=== PATIENT | male | born 1955 | race African-American/Black ===

== ENCOUNTER 2017-10-18 19:05 | Emergency (ER) | payer MEDICARE, BC ==
[~2017-10-18 19:05] MED LIST: Iopamidol 370 76% 50 ML VIAL FS ONE
[2017-10-18 19:36] LABS: #Eosinphils 0.1 thou/uL (0.0-0.7); #Lymphocytes 1.8 thou/uL (1.20-3.40); #Monocytes 0.6 thou/uL (0.11-0.59); #Neutrophils 4.6 thou/uL (1.40-6.50); %Basophils 0.4 % (0.0-1.0); %Eosinophils 2.1 % (0.0-10.0); %Lymphocytes 25.1 % (21.0-51.0); %Monocytes 8.5 % (0.0-10.0); Hemoglobin 13.7 g/dL (14.0-18.0); Mean Corpuscular HGB CONC 33.5 g/dL (32.0-36.0); Mean Corpuscular Hemoglobin 32.6 pg (27.0-31.0); Mean Corpuscular Volume 97.2 fl (80.0-94.0); Mean Platelet Volume 8.3 fL (7.4-10.4); Platelet Count 122 thou/uL (130-400); RBC Distribution Width 14.8 % (11.5-14.5); Red Blood Cell (RBC) Count 4.21 mill/uL (4.70-6.10); White Blood Cell (WBC) Count 7.2 thou/uL (4.8-10.8)
[2017-10-18] MEDS ORDERED: Dicyclomine 20 MG TAB ONE (19:44)
[2017-10-18] MEDS ORDERED: Ondansetron ODT 4 MG TAB ONE (19:44)
[2017-10-18 19:55] LABS: ALT (SGPT) 17 U/L (8-55); AST (SGOT) 19 U/L (5-34); Albumin 4.7 g/dL (3.4-4.8); Alkaline Phosphatase 139 U/L (40-150); Anion Gap 20 mmol/L (10-20); BUN (Urea Nitrogen) 34 mg/dL (8.4-25.7); Bilirubin, Total 0.8 mg/dL (0.2-1.2); Calc. Creatinine Clearance 0 mL/min (70-130); Calcium 9.9 mg/dL (7.8-10.44); Carbon Dioxide 30 mmol/L (23-31); Chloride 95 mmol/L (98-107); Estimated GFR-MDRD 10; Glucose 125 mg/dL (80-115); Lipase 95 U/L (8-78); Protein, Total 8.7 g/dL (5.8-8.1); Sodium 141 mmol/L (136-145)
[2017-10-18 19:58] LABS: CKMB 0.9 ng/mL (0-6.6); Troponin I 0.046 ng/mL (< 0.028)
[2017-10-18] MEDS ORDERED: Mag-Al 1200 mg/1200 mg/30 ML UDCUP ONE (20:05)
[2017-10-18] MEDS ORDERED: Lidocaine Viscous Sol 2% 15 ml UD Cup ONE (20:05)
[2017-10-18] MEDS ORDERED: HYDROcodone/Acetaminophen 5/325 mg Tablet ONE (21:05)
--- NOTE | 2017-10-18 22:35 | CT ---
CT OF THE ABDOMEN AND PELVIS WITHOUT IV CONTRAST: 10/18/17 Enteric contrast administered. COMPARISON: Prior CT of chest, abdomen and pelvis dated 09/19/12. FINDINGS: There is small left pleural effusion and left basilar atelectasis. There is a calcified granuloma in the right lower lobe. There is pacemaker leads in place. There are scattered calcifications. There is some reticulonodular opacities within the right lower lobe. Numerous hypodense lesions involving both kidneys consistent with polycystic kidney disease. Unopacif ied liver, spleen, pancreas and adrenal glands are unremarkable. No enlarged lymph nodes are evident. Severe vascular calcifications involving the abdominal and pelvic vasculature. There is some mild free fluid in the pelvis. Bladder is decompressed. There is a fluid containing lef t inguinal hernia measuring 4 cm. Unopacified large bowel appears normal. The appendix is normal in the right lower quadrant. The visualized partially opacified small bowel appears within normal limits. No definite acute osseous abnormality is evident. IMPRESSION: 1. No definite CT explanation for the patient's suprapubic abdominal pain. There is mild free fl uid in the pelvis as well as fluid filling the patient's previously seen fat containing left inguinal hernia. 2. Findings of polycystic kidney disease. 3. Small left pleural effusion with left basilar atelectasis. 4. Reticulonodularity of the right lower lobe can be seen with a bronchiolitis. 5. No additional acute abnormality seen. POS: [facility]
== END 2017-10-18 23:51 | disposition home or self-care (01) ==
LOC: ERS 19:05
DX: R10.32 Left lower quadrant pain (principal); R10.31 Right lower quadrant pain; I12.0 Hypertensive chronic kidney disease with stage 5 chronic kidney disease or end stage renal disease; N18.6 End stage renal disease; E78.00 Pure hypercholesterolemia, unspecified
CPT/HCPCS: 36415; 74176; 80053; 82150; 82553; 83690; 84484; 85025; 93005; Q0162

== ENCOUNTER 2018-01-09 17:35 | Emergency (ER) | payer MEDICARE ==
[2018-01-09 18:48] LABS: #Basophils 0.1 thou/uL (0.0-0.2); #Eosinphils 0.2 thou/uL (0.0-0.7); #Lymphocytes 1.4 thou/uL (1.20-3.40); #Monocytes 0.4 thou/uL (0.11-0.59); #Neutrophils 2.9 thou/uL (1.40-6.50); %Basophils 1.1 % (0.0-1.0); %Eosinophils 4.7 % (0.0-10.0); %Lymphocytes 28.6 % (21.0-51.0); %Monocytes 8.3 % (0.0-10.0); %Neutrophils 57.3 % (42.0-75.0); Hemoglobin 12.4 g/dL (14.0-18.0); Mean Corpuscular HGB CONC 32.8 g/dL (32.0-36.0); Mean Platelet Volume 8.4 fL (7.4-10.4); Platelet Count 110 thou/uL (130-400); RBC Distribution Width 15.1 % (11.5-14.5); Red Blood Cell (RBC) Count 3.77 mill/uL (4.70-6.10)
[2018-01-09 18:58] LABS: Lactic Acid 2.3 mmol/L (0.5-2.2)
[2018-01-09 19:03] LABS: ALT (SGPT) 15 U/L (8-55); AST (SGOT) 21 U/L (5-34); Albumin 4.3 g/dL (3.4-4.8); Alkaline Phosphatase 101 U/L (40-150); Anion Gap 25 mmol/L (10-20); BUN (Urea Nitrogen) 51 mg/dL (8.4-25.7); Bilirubin, Total 0.6 mg/dL (0.2-1.2); Calc. Creatinine Clearance 0 mL/min (70-130); Calcium 9.6 mg/dL (7.8-10.44); Carbon Dioxide 22 mmol/L (23-31); Chloride 96 mmol/L (98-107); Estimated GFR-MDRD 7; Globulin 3.7 g/dL (2.4-3.5); Glucose 118 mg/dL (80-115); Lipase 77 U/L (8-78); Sodium 138 mmol/L (136-145)
[2018-01-09] MEDS ORDERED: Morphine 10 MG/ML VIAL ONE (21:07)
[2018-01-09] MEDS ORDERED: Morphine 4 MG/ML VIAL ONE (21:08)
[2018-01-09] MEDS ORDERED: Ondansetron ODT 4 MG TAB ONE (21:10)
--- NOTE | 2018-01-09 21:14 | CT ---
CT ABDOMEN AND PELVIS WITHOUT CONTRAST: 01/09/18 HISTORY: Abdominal pain, suprapubic pain. FINDINGS: Comparison made with exam of 10/18/17. A small left pleural effusion is again seen. Absence of oral and IV contrast reduces the sensitivity of the exam particularly for evaluation of solid organs and bowel. No calcified gallstones are noted. Changes of bilateral polycystic kidney disease are again seen. No hydroureteronephrosis is noted on either side. A small amount of free fluid is seen in the pelvis. No free air is seen. Amount of free fluid in the pelvis is smaller than on the previous study. There are vascular calcifications without evidence of aneurysmal dilatation of the abdominal aorta. A fat containing left inguinal hernia is p resent. Fluid within the fat noted on the previous study has significantly improved. There are degene rative changes in the spine. IMPRESSION: 1. Small left pleural effusion. 2. Polycystic kidney disease. 3. Small amount of free fluid in the pelvis. POS: [facility]
== END 2018-01-09 21:24 | disposition home or self-care (01) ==
LOC: ERS 17:35
DX: K40.90 Unilateral inguinal hernia, without obstruction or gangrene, not specified as recurrent (principal); E78.00 Pure hypercholesterolemia, unspecified; I12.0 Hypertensive chronic kidney disease with stage 5 chronic kidney disease or end stage renal disease; N18.5 Chronic kidney disease, stage 5
CPT/HCPCS: 36415; 74176; 80053; 83605; 83690; 85025; J2270; Q0162

== ENCOUNTER 2018-02-04 11:07 | Day surgery (SDC) | payer MEDICARE, OTHER ==
[2018-02-03 10:39] VITALS: BMI 26.7
--- NOTE | 2018-02-04 07:42 | HP ---
HISTORY OF PRESENT ILLNESS: Luciano Valencia is a 62-year-old black male who dialyzes Saturday, , and Saturday. Follow up today after right inguinal hernia repair, open performed 02/01/2017. The p atient has a compromised cardiac ejection fraction. He has had a left vgggt-ghz-dbvu amputation perf ormed Dr. Vincenzo Emmanuel. He has a left upper arm basilic vein transposition fistula which has served him well for dialysis for years. The patient is followed by chronic pain management for chronic eva n in his left leg. The patient reports today and his right inguinal hernia repair is intact. He com plains of bulge in his left groin which was not appreciated preoperatively. Evaluation in the office appreciates a left inguinal hernia. Plan is to repair that as an open fashion under anesthesia. Ri sk and benefits explained and he consents. I have talked with Cardiology regarding his cardiac risk and no further interventions are required. Although he is slight increased risk. Last anesthetic pr ovided was a general with local anesthetic. HISTORY: Please see recent history and physical dictated 01/31/2017. PHYSICAL EXAMINATION: VITAL SIGNS: Blood pressure 92/53, 84, 98.2 degrees, 180 pounds, 71 inches. HEENT: Unremarkable. LUNGS: Clear to auscultation. CARDIAC: Regular rate and rhythm without murmur or gallop. ABDOMEN: Soft, nontender. Right groin without hernia. : Testicles normal. Right inguinal hernia repair intact standing during Valsalva. Left inguinal hernia present, increased on Valsalva. ASSESSMENT AND PLAN: 1. Left inguinal hernia, symptomatic. Plan repair opened using mesh. He understands risks and bene fits and consents. We will plan this on a nondialysis day Saturday afternoon. 2. End-stage renal disease, on maintenance dialysis 0500 to 0900 Saturday, Saturday, and Saturday. 3. Coronary artery disease, stable with cardiomyopathy.
[2018-02-04] MEDS ORDERED: CEFAZOLIN/Water 2 GM/20 ML SYRINGE ONE (11:41)
[2018-02-04] MEDS ORDERED: Fentanyl 100 MCG/2 ML VIAL ONE ×2 (12:01)
[2018-02-04 12:09] LABS: #Eosinphils 0.2 thou/uL (0.0-0.7); #Lymphocytes 1.7 thou/uL (1.20-3.40); #Monocytes 0.6 thou/uL (0.11-0.59); #Neutrophils 2.1 thou/uL (1.40-6.50); %Eosinophils 4.2 % (0.0-10.0); %Lymphocytes 36.9 % (21.0-51.0); %Monocytes 13.1 % (0.0-10.0); %Neutrophils 44.8 % (42.0-75.0); Hemoglobin 12.3 g/dL (14.0-18.0); Mean Corpuscular HGB CONC 32.9 g/dL (32.0-36.0); Mean Corpuscular Hemoglobin 32.1 pg (27.0-31.0); Mean Corpuscular Volume 97.6 fL (78.0-98.0); Mean Platelet Volume 7.8 fL (7.4-10.4); Platelet Count 139 thou/uL (130-400); RBC Distribution Width 14.4 % (11.5-14.5); Red Blood Cell (RBC) Count 3.84 mill/uL (4.70-6.10); White Blood Cell (WBC) Count 4.6 thou/uL (4.8-10.8)
[2018-02-04 12:32] LABS: Anion Gap 21 mmol/L (10-20); BUN (Urea Nitrogen) 56 mg/dL (8.4-25.7); Calc. Creatinine Clearance 10 mL/min (70-130); Calcium 9.3 mg/dL (7.8-10.44); Carbon Dioxide 28 mmol/L (23-31); Chloride 95 mmol/L (98-107); Estimated GFR-MDRD 7; Glucose 88 mg/dL (80-115); Sodium 139 mmol/L (136-145)
[2018-02-04] MEDS ORDERED: Bupivacaine HCl 0.5%/Epinephrine 1:200,000/PF 30 ml Vial ONE (12:57)
[2018-02-04] MEDS ORDERED: Lidocaine 2% 10 ML INJ ONE (12:57)
--- NOTE | 2018-02-04 17:45 | OP ---
DATE OF PROCEDURE: 02/04/2018 PREOPERATIVE DIAGNOSES: Left inguinal hernia, end-stage renal disease, cardiomyopathy. POSTOPERATIVE DIAGNOSES: Left inguinal hernia, end-stage renal disease, cardiomyopathy. PROCEDURE: PHS mesh repair of indirect left inguinal hernia. SURGEON: Serge Anderson M.D. ANESTHESIA: General LMA. Local 0.5% Marcaine with epinephrine, 30 mL, mixed with 2% Xylocaine, 10 m L total volume mixture used. DESCRIPTION OF PROCEDURE: The patient was taken to the operating room where under general LMA anesth esia, left lower abdomen and groin prepared with ChloraPrep, draped in routine fashion. Local anesth etic infiltrated into skin and subcutaneous tissue for ilioinguinal nerve block along the line of inc ision. Ioban was used for the drape. Incision carried down through skin and subcutaneous tissue, th e external oblique, incised it in the direction of its fibers to the external ring. Cord structures dissected free and surrounded with a Latham drain. Cremasteric fibers taken down with the cautery a nd indirect hernia sac identified, opened under direct visualization, dissected free and then highly ligated under direct visualization with pursestring suture of 0 Nurolon. The stump of the hernia sac , underlay portion of the PHS mesh secured after excision of hernia sac. PHS mesh underlay portion p laced in the preperitoneal space, onlay portion placed in the floor of the canal as the mesh slit in the mesh made laterally and brought around the cord structures creating a synthetic internal ring res ecuring the mesh laterally to ligament and the mesh inferiorly to ligament. Hemostasis w as noted. Sponge and needle counts were correct. Good hemostasis ensured. The external oblique mary carmen sed with continuous suture of 3-0 Monocryl, Camper's fascia with continuous suture of 3-0 Monocryl, s kin with subcutaneous subcuticular suture of 4-0 Monocryl. Local anesthetic infiltrated in the space of the inguinal canal and space level Camper's fashion and the skin and subcutaneous tissue. Dermab ond applied.
--- NOTE | 2018-02-06 16:44 | EKG ---
Test Reason : PREOP Blood Pressure : / mmHG Vent. Rate : 062 BPM Atrial Rate : 062 BPM P-R Int : 170 ms QRS Dur : 118 ms QT Int : 482 ms P-R-T Axes : 057 006 245 degrees QTc Int : 489 ms AV sequential or dual chamber electronic pacemaker When compared with ECG of 18-OCT-2017 19:14, Vent. rate has decreased BY 19 BPM Confirmed by ANDIE CAM ([id number]) on 02/06/2018 4:43:45 PM Referred By: AFUA Confirmed By:ANDIE CAM
== END 2018-02-04 16:49 | disposition home or self-care (01) ==
LOC: SDC 11:07
PROVIDERS: ATTEND Specialist
PROC: 0YU60JZ Supplement Left Inguinal Region with Synthetic Substitute, Open Approach (ICD-10-PCS; principal; 2018-02-04)
DX: K40.90 Unilateral inguinal hernia, without obstruction or gangrene, not specified as recurrent (principal); I13.2 Hypertensive heart and chronic kidney disease with heart failure and with stage 5 chronic kidney disease, or end stage renal disease; N18.6 End stage renal disease; I50.9 Heart failure, unspecified; I25.10 Atherosclerotic heart disease of native coronary artery without angina pectoris; K21.9 Gastro-esophageal reflux disease without esophagitis; I42.9 Cardiomyopathy, unspecified; Z79.82 Long term (current) use of aspirin; Z79.899 Other long term (current) drug therapy; Z87.19 Personal history of other diseases of the digestive system
CPT/HCPCS: 49505; 80048; 85025; 93005; C1781; 36415; 93010; J0131; J0670; J3010

== ENCOUNTER 2018-03-24 10:37 | Outpatient (CLI) | payer MEDICARE, OTHER ==
[~2018-03-24 10:37] MED LIST changes: +Iopamidol 370 76% 100 ML VIAL ONE; -Iopamidol 370 76% 50 ML VIAL FS ONE
--- NOTE | 2018-03-24 13:42 | CT ---
CT ABDOMEN ANAD PELVIS WITH AND WITHOUT CONTRAST: Date: 03/24/18 HISTORY: R31.0 hematuria. COMPARISON: CT dated 01/09/18. FINDINGS: There is a chronic small left layering pleural effusion. There is some round atelectasis in the lung bases with some peripheral pleural scarring. There are peripheral calcifications of the right lower l obe parenchymal septa. Small pericardial effusion. There is reflux of contrast in the suprahepatic IVC and hepatic veins. Th ere is polycystic kidney disease. On the delayed phase of contrast, there is no significant contrast within the collecting systems nor the urinary bladder. Extensive atherosclerotic plaque of the aortoiliac system. Bilateral femoral art erial grafts are appreciated. The infrarenal abdominal aorta measures up to 2.8 cm. New from the comparison examination is extensive inflammatory stranding along the anterior lower pelv ic wall. There is inflammation along the left spermatic cord. There are enlarging superficial inguina l lymph nodes. There is loss of normal cortical medullary differentiation throughout the skeleton sug gesting hyperparathyroidism. Large erosion of L5-S1 disc space. There is a posterior calcified disc o steophyte complex at L5-S1 causing narrowing of the spinal canal and neural foramina. No definite renal enhancing mass is appreciated. IMPRESSION: 1. Limited evaluation for a urothelial abnormality due to lack of contrast within the renal collecti ng systems, ureters, nor the urinary bladder likely sequelae of the patient's poor kidney function. 2. Mild cardiomegaly with evidence of right hear failure with reflux of contrast in the suprahepatic IVC and hepatic veins. 3. Mild ectasia infrarenal abdominal aorta, although not aneurysmal. 4. Evidence of hyperparathyroidism throughout the skeleton. 5. New from the comparison examination is enlarging bilateral superficial inguinal lymph nodes with skin thickening of the anterior lower pelvis with inflammatory change, as well as inflammation of the left spermatic cord. Recommend correlation of underlying infectious abnormality. POS: [facility]
== END 2018-03-24 10:38 | disposition home or self-care (01) ==
LOC: CT 10:37
PROVIDERS: ATTEND Urology
DX: R31.0 Gross hematuria (principal); I50.9 Heart failure, unspecified; I51.7 Cardiomegaly; I77.811 Abdominal aortic ectasia; E21.3 Hyperparathyroidism, unspecified; N49.1 Inflammatory disorders of spermatic cord, tunica vaginalis and vas deferens
CPT/HCPCS: 74178; 80048; 85027; 85610; 85730; 93005; 93010

== ENCOUNTER 2018-03-24 11:30 | Outpatient (CLI) | payer MEDICARE, OTHER ==
[2018-03-24 12:17] LABS: Hemoglobin 10.8 g/dL (14.0-18.0); Mean Corpuscular HGB CONC 31.8 g/dL (32.0-36.0); Mean Corpuscular Hemoglobin 31.6 pg (27.0-31.0); Mean Corpuscular Volume 99.6 fL (78.0-98.0); Mean Platelet Volume 7.1 fL (7.4-10.4); Platelet Count 258 thou/uL (130-400); Red Blood Cell (RBC) Count 3.41 mill/uL (4.70-6.10)
[2018-03-24 12:22] LABS: PTT 32.5 SEC (22.9-36.1); Prothrombin Time 13.7 SEC (12.0-14.7)
[2018-03-24 12:29] LABS: Anion Gap 22 mmol/L (10-20); BUN (Urea Nitrogen) 72 mg/dL (8.4-25.7); Calc. Creatinine Clearance 0 mL/min (70-130); Calcium 9.1 mg/dL (7.8-10.44); Carbon Dioxide 25 mmol/L (23-31); Chloride 97 mmol/L (98-107); Estimated GFR-MDRD 5; Glucose 84 mg/dL (80-115); Potassium 5.3 mmol/L (3.5-5.1); Sodium 139 mmol/L (136-145)
--- NOTE | 2018-03-25 09:38 | EKG ---
Test Reason : Blood Pressure : / mmHG Vent. Rate : 067 BPM Atrial Rate : 067 BPM P-R Int : 144 ms QRS Dur : 142 ms QT Int : 492 ms P-R-T Axes : 071 016 263 degrees QTc Int : 519 ms Electronic ventricular pacemaker When compared with ECG of 04-FEB-2018 11:58, Vent. rate has increased BY 5 BPM Confirmed by MARSHALL THOMPSON ([id number]) on 03/25/2018 9:38:27 AM Referred By: NAYAN Confirmed By:MARSHALL THOMPSON
== END 2018-03-24 11:31 | disposition home or self-care (01) ==
LOC: LABBT 11:30
PROVIDERS: ATTEND Urology
DX: Z01.818 Encounter for other preprocedural examination (principal); R31.0 Gross hematuria; N32.89 Other specified disorders of bladder
CPT/HCPCS: 80048; 85027; 85610; 85730; 93005; 93010

== ENCOUNTER 2018-04-01 10:51 | Day surgery (SDC) | payer MEDICARE, OTHER ==
[2018-03-24 12:04] VITALS: BMI 26.0
[2018-04-01] MEDS ORDERED: PHENYLEPHRINE-NS 100 MCG/ML 10 ML SYRINGE ONE (12:47)
[2018-04-01] MEDS ORDERED: Ondansetron PF 4 MG/2 ML Vial ONE (12:47)
[2018-04-01] MEDS ORDERED: PROPOFOL 200 MG/20 ML VIAL ONE (12:47)
[2018-04-01] MEDS ORDERED: cefTRIAXone\\ROCEPHIN 1 GM VIAL ONE (13:16)
[2018-04-01] MEDS ORDERED: Sodium Chloride 0.9% 100 ML ONE (13:16)
--- NOTE | 2018-04-01 13:24 | RAD ---
PORTABLE CHEST: Date: 04-01-18 Indication: Cardiac disease. FINDINGS/IMPRESSION: Heart is mildly enlarged with mild vascular engorgement. AICD leads are noted. No infiltrate, effusio n, or acute process apparent. POS: [facility]
[2018-04-01] MEDS ORDERED: Fentanyl 100 MCG/2 ML VIAL ONE (14:15)
--- NOTE | 2018-04-01 15:11 | OP ---
DATE OF SURGERY: 04/01/2018 SERVICE: Urology. SURGEON: Eriberto Marquez M.D. PREOPERATIVE DIAGNOSIS: Gross hematuria with bladder lesions. POSTOPERATIVE DIAGNOSIS: Gross hematuria with bladder lesion. PROCEDURE PERFORMED: Cystoscopy with bladder biopsy. INDICATIONS FOR PROCEDURE: Mr. Valencia is a 62-year-old black male who initially presented to me with gross hematuria. He has end-stage renal disease and is oliguric, but when he does urinate, he says occasionally, there is blood in the urine. Office cystoscopy demonstrated lesions within the bladder and out of concern for this, I recommended we go ahead and perform biopsy of his bladder. Risks and benefits of the procedure were discussed and he has agreed to proceed forward. 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 Therefore, we have elected to go forward with a cystoscopy, bladder biopsies, while him t aking his aspirin and Plavix. Risks and benefits have been discussed and he agrees to proceed forwar d. DESCRIPTION OF PROCEDURE: After identification of armband and verification of consent, the patient w as brought back to the operating room where he underwent total intravenous anesthesia. He was placed in dorsal lithotomy position and prepped and draped in usual sterile fashion. After appropriate nima eout, a lubricated 22-Romansh rigid cystoscope was introduced per urethra into the bladder. The red p atches were again noted within the bladder which had previously been seen on cystoscopy with the wors t patch being on the left lateral bladder wall and the secondary worst patch being on the posterior b ladder wall. Both of these areas were biopsied. Due to the patient taking blood thinners, I did not want to take additional biopsies as I felt these two were sufficient and enrollment eligibility representative of the remai cinthia smaller bladder lesions and due to the patient being on Plavix which cannot be stopped, I felt t hat the fewer number of biopsies taken . After these 2 areas had cold cup biopsies, a Bugbee el ectrode was used to cauterize the area of the biopsy. This area was watched for several minutes afte r biopsy and no additional bleeding was noted. Satisfied that the area had been adequately cauterize d, the cystoscope was used to drain the bladder and the cystoscope removed. The patient was awakened and taken to PACU for recovery in stable condition. COMPLICATIONS: None. ESTIMATED BLOOD LOSS: Minimal. RETAINED TUBES OR DRAINS: None. SPECIMENS: Bladder biopsies x2. RETAINED TUBES AND DRAINS: None. DISPOSITION: The patient will be discharged home and follow up with me in approximately 1-2 weeks fo r postop check.
== END 2018-04-02 15:00 | disposition home or self-care (01) ==
LOC: SDC 10:51
PROVIDERS: ATTEND Urology
PROC: 0TBB8ZX Excision of Bladder, Via Natural or Artificial Opening Endoscopic, Diagnostic (ICD-10-PCS; principal; 2018-04-01)
DX: N30.21 Other chronic cystitis with hematuria (principal); N32.89 Other specified disorders of bladder; I13.2 Hypertensive heart and chronic kidney disease with heart failure and with stage 5 chronic kidney disease, or end stage renal disease; N18.6 End stage renal disease; I50.9 Heart failure, unspecified; E78.00 Pure hypercholesterolemia, unspecified; M10.9 Gout, unspecified; G47.00 Insomnia, unspecified; K21.9 Gastro-esophageal reflux disease without esophagitis; I38 Endocarditis, valve unspecified; Z79.02 Long term (current) use of antithrombotics/antiplatelets; Z79.82 Long term (current) use of aspirin; Z79.899 Other long term (current) drug therapy
CPT/HCPCS: 52204; 71045; 88305; C1769; J0696; J2405; J2704; J3010; J7050

== ENCOUNTER 2019-10-15 13:57 | Outpatient (CLI) | payer MEDICARE, OTHER ==
[~2019-10-15 13:57] MED LIST changes: -Iopamidol 370 76% 100 ML VIAL ONE; +Iopamidol-370 76% 500 ML 1 ML ONE
--- NOTE | 2019-10-15 16:22 | CT ---
CT arteriogram abdomen and pelvis with IV contrast and 3-D imaging CT arteriogram runoff bilateral lower extremity with IV contrast and 3-D imaging HISTORY: Vascular disease. Right foot wound. Gangrene. Renal failure FINDINGS: There is prominent calcification throughout the arterial structures, including the partiall y visualized coronary arteries. Mesenteric arteries are patent. Likely high grade stenoses involving each renal artery. Mild fusiform ectasia of the lower abdominal aorta and left common iliac artery. Right iliac artery is patent. Prominent calcification at the distal external iliac and common femoral artery with approximately 70% stenosis at the level of the hip joint. Femoropopliteal pass graft is patent with occlusion of the [place] right femoral artery. A few deep femoral collaterals are opaci fied. The right popliteal artery, fed by the bypass graft, shows three-vessel runoff to the lower leg, although arterial calcification predominantly obscures the contrast. The left iliac artery is patent with areas of approximately 50% stenosis. At the level of the hip sandeep nt, prominent plaque results in approximately 80% stenosis. The left femoral artery is obstructed without flow. Collateralization into the deep femoral system is present, although the more peripheral arterial structures are not opacified due to the timing of contrast. Below the knee amputation is noted. Prominent calcification throughout the popliteal arteries and other arteries of the remaining lower leg. Kidneys are diffusely enlarged and completely replaced by cysts of varying size. No solid masses are apparent. There are prominent degenerative changes throughout the lumbar spine. Involving the anterior cortex of the upper right femoral shaft is a vertically oriented well-circumsc ribed lytic lesion measuring up to 4.7 cm length by 0.8 cm diameter. Small area of endosteal scalloping at the superior margin. Benign process is favored. IMPRESSION : Severe atherosclerosis. Right iliac artery and femoropopliteal bypass are patent. Approximately 70% s tenosis at the common femoral artery. Long segment occlusion of the arterial structures of the left leg with cvaqd-bag-vrvp amputation. Bilateral renal artery stenosis. Evidence of long-term renal atrophy/failure. Cortex replaced by belgica l cysts.
== END 2019-10-15 13:58 | disposition home or self-care (01) ==
LOC: BICCT 13:57
PROVIDERS: ATTEND Thoracic Surgery (Cardiothoracic Vascular Surgery)
DX: I70.262 Atherosclerosis of native arteries of extremities with gangrene, left leg (principal); I70.1 Atherosclerosis of renal artery; I70.0 Atherosclerosis of aorta; I25.10 Atherosclerotic heart disease of native coronary artery without angina pectoris; I70.201 Unspecified atherosclerosis of native arteries of extremities, right leg; N28.1 Cyst of kidney, acquired; Z89.512 Acquired absence of left leg below knee
CPT/HCPCS: 75635; Q9967

== ENCOUNTER 2019-10-22 09:49 | Outpatient (CLI) | payer MEDICARE, OTHER ==
[2019-10-22 18:35] LABS: SARS-CoV-2 MS2 Positive; SARS-CoV-2 N Gene Negative; SARS-CoV-2 S Gene Negative; SARS-CoV-2 orf1ab Negative
== END 2019-10-22 09:50 | disposition home or self-care (01) ==
LOC: LABBT 09:49
PROVIDERS: ATTEND Thoracic Surgery (Cardiothoracic Vascular Surgery)
DX: Z01.812 Encounter for preprocedural laboratory examination (principal); Z11.59 Encounter for screening for other viral diseases; I73.9 Peripheral vascular disease, unspecified
CPT/HCPCS: 87635; U0003

== ENCOUNTER 2019-10-26 05:42 | Day surgery (SDC) | payer MEDICARE, OTHER ==
[2019-10-22 10:32] VITALS: BMI 26.6
[2019-10-26] MEDS ORDERED: Heparin 10,000 UNITS/1 ML VIAL ONE (09:14)
[2019-10-26] MEDS ORDERED: Fentanyl 100 MCG/2 ML VIAL ONE (09:16)
[2019-10-26] MEDS ORDERED: Midazolam HCl 2 mg/2 ml Vial ONE (09:16)
[2019-10-26] MEDS ORDERED: Iopamidol 370 76% 50 ML VIAL FS ONE (09:16)
[2019-10-26] MEDS ORDERED: Protamine Sulfate 50 MG/5 ML VIAL ONE (10:03)
--- NOTE | 2019-10-26 12:19 | OP ---
DATE OF PROCEDURE: 10/26/2019 PREOPERATIVE DIAGNOSES: Peripheral vascular disease with rest pain/ulceration of the right foot. POSTOPERATIVE DIAGNOSES: Peripheral vascular disease with rest pain/ulceration of the right foot. PROCEDURES PERFORMED: 1. Left femoral artery ultrasound-guided arterial access. 2. Abdominal aortogram. 3. Right external iliac artery angiogram. 4. Right common femoral artery angiogram. 5. Right proximal femoral-popliteal graft [employer] with a 5 x 80 [place] balloon followed by 6 x 80 Lutonix balloon held at 10 mmHg for 3 minutes. TOTAL CONTRAST: 40 mL. TOTAL FLUORO TIME: 8.4 minutes. Heparin was 5000 units with 25 mg of protamine given at the completion. DESCRIPTION OF PROCEDURE: After consent was obtained, the patient was brought to the warehouse general laborer, placed in supine position on warehouse general laborer table. Appropriate monitoring was placed. The patient was given 1 mg Versed and 25 mcg fentanyl. Groins were prepped and draped in usual sterile fashion. Using ultrasound guidance, the left groin was anesthetized with 1% lidocaine. Percutaneous access to the common femoral artery was obtained with a micropuncture needle and wire. This was followed with a micropuncture sheath. A 5-[place] sheath was then exchanged for the micropuncture sheath. A Contra catheter was passed in the abdominal aorta. Hand-injected aortogram was performed showing no significant disease in the aorta or proximal common iliac or external iliac arteries bilaterally. A Contra catheter was guided down into the external iliac artery. Hand-injected arteriogram was performed, which showed at the takeoff of the femoral-popliteal graft, there was a stenosis. The patient was given 5000 units of heparin. A Magic Torque guidewire was passed down into the femoral-popliteal graft. A 5-Sudanese sheath was exchanged for a 5-Sudanese Destination sheath positioned with its tip at the common femoral artery. The area in question was magnified and hand-injected arteriogram performed. We selected a 5 x 80 [place] balloon, which was inflated with good waisting and resolution of the waist. The balloon was withdrawn. Followup angiogram showed a good result. We selected a 6 x 80 Lutonix balloon, which was inflated over the area in question for 3 minutes. Balloon was deflated and followup angiogram showed an excellent result. Digital angiography was used to yue contrast down for the full length of the graft. This was then plugged into the tibioperoneal trunk. This showed single-vessel runoff into the foot via a peroneal artery. The patient was given 25 mg of protamine. The sheath was withdrawn back over the aortic bifurcation over the guidewire. Sheath was removed and manual pressure held for hemostasis. The patient tolerated the procedure well and was transferred to recovery area in stable condition. Job ID: [id number]
== END 2019-10-26 15:20 | disposition home or self-care (01) ==
LOC: CCL 05:42
PROVIDERS: ATTEND Thoracic Surgery (Cardiothoracic Vascular Surgery)
PROC: 047K3ZZ Dilation of Right Femoral Artery, Percutaneous Approach (ICD-10-PCS; principal; 2019-10-26)
DX: I70.321 Atherosclerosis of unspecified type of bypass graft(s) of the extremities with rest pain, right leg (principal); I70.335 Atherosclerosis of unspecified type of bypass graft(s) of the right leg with ulceration of other part of foot; L97.519 Non-pressure chronic ulcer of other part of right foot with unspecified severity; I70.262 Atherosclerosis of native arteries of extremities with gangrene, left leg; I25.10 Atherosclerotic heart disease of native coronary artery without angina pectoris; I13.2 Hypertensive heart and chronic kidney disease with heart failure and with stage 5 chronic kidney disease, or end stage renal disease; N18.6 End stage renal disease; I50.1 Left ventricular failure, unspecified; E78.2 Mixed hyperlipidemia; E66.9 Obesity, unspecified; Z68.26 Body mass index [BMI] 26.0-26.9, adult; Z79.01 Long term (current) use of anticoagulants; Z79.82 Long term (current) use of aspirin; Z79.899 Other long term (current) drug therapy; Z89.512 Acquired absence of left leg below knee
CPT/HCPCS: 37224; 76942; 85347; 99152; 99153; C1725; C1769; C1887; J1644; J2250; J2720; J3010; Q9967

== ENCOUNTER 2019-11-22 19:07 | Inpatient (IN) | payer MEDICARE, OTHER ==
[2019-11-22 19:37] LABS: Hemoglobin 11.3 g/dL (14.0-18.0); Mean Corpuscular HGB CONC 31.5 g/dL (32.0-36.0); Mean Corpuscular Hemoglobin 29.8 pg (27.0-31.0); Mean Corpuscular Volume 94.6 fL (78.0-98.0); Mean Platelet Volume 8.6 fL (7.4-10.4); Platelet Count 229 thou/uL (130-400); RBC Distribution Width 15.1 % (11.5-14.5); Red Blood Cell (RBC) Count 3.78 mill/uL (4.70-6.10); White Blood Cell (WBC) Count 24.9 thou/uL (4.8-10.8)
[2019-11-22] MEDS ORDERED: Cefepime 2 GM VIAL ONE (19:40)
[2019-11-22] MEDS ORDERED: Sodium Chloride 0.9% 100 ML ONE (19:40)
[2019-11-22 19:42] LABS: Bilirubin Negative (Negative); Blood, Urine Large (Negative); Glucose, Urine (Dipstick) Negative (Negative); Leukocyte Small (Negative); Nitrite Negative (Negative); Protein, Urine (Dipstick) > or equal to 300 mg/dL (Neg-Trace); Urobilinogen 0.2 mg/dL (Less than 2)
[2019-11-22 19:45] LABS: Clarity Turbid (Clear)
[2019-11-22 19:47] LABS: Other Microscopic Description Less than 2 mL rec'd
[2019-11-22 19:48] LABS: Bacteria/HPF None Seen HPF (None Seen); Renal Epithelial 0-3 HPF (None Seen); Squamous Epithelial 0-3 HPF (0-3); Transitional Epithelial 0-3 HPF (None Seen)
[2019-11-22] MEDS ORDERED: Acetaminophen 650 MG Suppository ONE (19:49)
[2019-11-22 19:51] LABS: Anisocytosis SLIGHT = 6-15 cells (100X) (0-5/hpf); Band 5 % (5-11); Lymphocytes 2 % (21-51); MDiff Complete? YES; Monocytes 3 % (0-10); Neutrophil 89 % (42-75); Ovalocytes SLIGHT = 2-5 cells (100X) (0-1/hpf); Platelet Morphology Comment Appears Adequate; Polychromasia SLIGHT = 2-3 cells (100X) (0-2/hpf); Reactive Lymphocytes 1 % (0-10); Target Cells SLIGHT = 2-5 cells (100X) (0-1/hpf)
[2019-11-22 19:57] LABS: ALT (SGPT) 37 U/L (8-55); AST (SGOT) 104 U/L (5-34); Alkaline Phosphatase 104 U/L (40-110); Anion Gap 21 mmol/L (10-20); BUN (Urea Nitrogen) 65 mg/dL (8.4-25.7); Calc. Creatinine Clearance 0 mL/min (70-130); Calcium 11.2 mg/dL (7.8-10.44); Carbon Dioxide 27 mmol/L (23-31); Chloride 94 mmol/L (98-107); Estimated GFR-MDRD 5; Globulin 4.2 g/dL (2.4-3.5); Glucose 100 mg/dL (80-115); Potassium 4.8 mmol/L (3.5-5.1); Protein, Total 7.2 g/dL (5.8-8.1); Sodium 137 mmol/L (136-145)
--- NOTE | 2019-11-22 19:57 | RAD ---
Radiograph right foot 2 views: 11/22/2019 HISTORY: 64-year-old male with right foot wound infection FINDINGS: Absence of first distal phalanx. Diffuse osteopenia. Atherosclerosis. No high-grade DJD. No periostit is, permeative lesion, osteolytic lesion, osteoblastic lesion, or acute fracture identified. Diffuse soft tissue swelling. No subcutaneous emphysema identified. IMPRESSION: 1. 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 2. Atherosclerosis. 3. Soft tissue edema. 4. No destructive osseous lesion identified.
[2019-11-22] MEDS ORDERED: Vancomycin 1.5 GRAM/300 ML BAG 1.5 GM in Premix Bag 1 BAG IVPB SCH (20:00)
--- NOTE | 2019-11-22 20:13 | RAD ---
ONE VIEW CHEST: History: Fever, dialysis patient. Comparison: 11-18-14, 04-01-18 FINDINGS: Stable three lead right sided defibrillator. Normal cardiac silhouette. Pulmonary vessels and hilum are normal. Costophrenic angles are clear. No consolidation or mass. Stable vascular stents projecting over the medial left lung apex and left axilla. Stable internal fixation plate across the right clavicle. IMPRESSION: No acute cardiopulmonary process. POS: [facility]
[2019-11-22] MEDS ORDERED: Vancomycin HCl 1 GM in Sodium Chloride 0.9% 250 ML 300 ML IVPB SCH (21:15)
[2019-11-22] MEDS ORDERED: Acetaminophen 325 MG TAB PO PRN (21:19)
[2019-11-22] MEDS ORDERED: Acetaminophen 650 MG Suppository PR PRN (21:19)
[2019-11-22] MEDS ORDERED: HYDROcodone/Acetaminophen 5/325 mg Tablet PO PRN (21:19)
[2019-11-22] MEDS ORDERED: Vancomycin HCl 500 MG in Sodium Chloride 0.9% 100 ML IVPB SCH (21:30)
[2019-11-22] MEDS ORDERED: Vancomycin 1 GM in Premix Bag 1 BAG IVPB SCH (21:30)
[2019-11-22] MEDS ORDERED: Vancomycin HCl 750 MG in Sodium Chloride 0.9% 250 ML 250 ML IVPB SCH (21:30)
[2019-11-22] MEDS ORDERED: HOLD VANCOMYCIN FOR LEVEL >20 FS SCH (21:30)
[2019-11-22] MEDS ORDERED: Vancomycin HCl 1.25 GM in Sodium Chloride 0.9% 250 ML 250 ML IVPB SCH (21:30)
--- NOTE | 2019-11-22 21:32 | PDOC.HHP ---
Hospitalist HPI - History of Present Illness fever, altered menta state History of Present Illness: Case of an 64y/o male with pmhx of cad, pvd, esrd on h/d, chf s/p def htn, hyperlipidemia who comes to hospital due to fever and altered mental state. apparenly patient was on his usual state of health until today when they noted that patient was warm and was not oriented for which they brought the patient to hospital for evaluation. patient w recent stent placement on R leg, present with sepsis secondary to wet gangrene of the foot. most of the history was obtain from patient was not oriented during evaluation. Hospitalist ROS - Review of Systems ROS unobtainable: due to mental status Hospitalist History - Past Medical History Source: family Cardiac: reports: CAD, CHF, HTN, Hyperlipidemia Renal/: reports: Chronic renal failure - Past Surgical History Other Surgical History: bka - Family History Family History: reports: cancer - Social History Smoking Status: Former smoker Alcohol: reports: None Drugs: reports: none Living Situation: With Family Activity level: wheelchair bound - Exam General Appearance: NAD Eye: PERRL, anicteric sclera ENT: normocephalic atraumatic, no oropharyngeal lesions Neck: supple, symmetric, no JVD, no thyromegaly Heart: RRR, no murmur, no gallops Respiratory: CTAB, no wheezes, no rales Gastrointestinal: soft, non-tender, non-distended Skin: normal turgor, no lesions Neurological: cranial nerve grossly intact, normal sensation to touch Musculoskeletal: normal tone, normal strength Musculoskeletal - other findings: wet gangrene on foot Psychiatric: oriented to person Hospitalist Results - Labs Result Diagrams: 11/22/19 19:22 11/22/19 19:22 Lab results: WBC 24.9 thou/uL (4.8-10.8) H 11/22/19 19:22 Hgb 11.3 g/dL (14.0-18.0) L 11/22/19 19:22 Hct 35.8 % (42.0-52.0) L 11/22/19 19:22 MCV 94.6 fL (78.0-98.0) 11/22/19 19:22 Plt Count 229 thou/uL (130-400) 11/22/19 19:22 Band Neuts % (Manual) 5 % (5-11) 11/22/19 19:22 ESR Westergren Greater than 130 mm/hr (Less than 20) 11/22/19 19:22 Sodium 137 mmol/L (136-145) 11/22/19 19:22 Potassium 4.8 mmol/L (3.5-5.1) 11/22/19 19:22 Chloride 94 mmol/L (98-107) L 11/22/19 19:22 Carbon Dioxide 27 mmol/L (23-31) 11/22/19 19:22 BUN 65 mg/dL (8.4-25.7) H 11/22/19 19:22 Creatinine 11.43 mg/dL (0.7-1.3) H 11/22/19 19:22 Glucose 100 mg/dL (80-115) 11/22/19 19:22 Lactic Acid 1.2 mmol/L (0.5-2.2) 11/22/19 19: Calcium 11.2 mg/dL (7.8-10.44) H 11/22/19 19:22 Total Bilirubin 1.0 mg/dL (0.2-1.2) 11/22/19 19:22 AST 104 U/L (5-34) H 11/22/19 19:22 ALT 37 U/L (8-55) 11/22/19 19:22 Alkaline Phosphatase 104 U/L (40-110) 11/22/19 19:22 Serum Total Protein 7.2 g/dL (5.8-8.1) 11/22/19 19:22 Albumin 3.0 g/dL (3.4-4.8) L 11/22/19 19:22 Urine Ketones Negative mg/dL (Negative) 11/22/19 19:32 Urine Blood Large (Negative) A 11/22/19 19:32 Urine Nitrite Negative (Negative) 11/22/19 19:32 Ur Leukocyte Esterase Small (Negative) H 11/22/19 19:32 Urine RBC 7-10 HPF (0-3) A 11/22/19 19:32 Urine WBC 4-6 HPF (0-3) A 11/22/19 19:32 Ur Squamous Epith Cells 0-3 HPF (0-3) 11/22/19 19:32 Urine Bacteria None Seen HPF (None Seen) 11/22/19 19:32 - Radiology Interpretation Chest x-ray Additional Comment: no acute pathology Other Additional Comment: no OM on leg xr Hospitalist H&P A/P - Problem (1) Cellulitis Code(s): L03.90 - CELLULITIS, UNSPECIFIED Status: Acute (2) Sepsis Code(s): A41.9 - SEPSIS, UNSPECIFIED ORGANISM Status: Acute (3) ESRD (end stage renal disease) Code(s): N18.6 - END STAGE RENAL DISEASE Status: Acute (4) Atherosclerosis of [place] arteries of extremity with rest pain Code(s): I70.229 - ATHSCL [place] ARTERIES OF EXTRM W REST PAIN, UNSP EXTREMITY Status: Acute (5) Dyslipidemia Code(s): E78.5 - HYPERLIPIDEMIA, UNSPECIFIED Status: Acute (6) Hypertension Code(s): I10 - ESSENTIAL (PRIMARY) HYPERTENSION Status: Acute - Plan Plan: - sepsis bundles started, lactic acid 1.2 given 1l of NS, pt is esrd, blood cultures were taken and abx started - vanc + cefepime - f/u cultures - continue h/d treatment, nephrology was consulted - recent stent placement by dr zimmer cardiology, will be consulted - surgery evaluation - continue home meds for chronic conditions
[2019-11-23 01:47] VITALS: BMI 27.0
[2019-11-23 05:56] LABS: ALT (SGPT) 31 U/L (8-55); AST (SGOT) 84 U/L (5-34); Albumin 2.8 g/dL (3.4-4.8); Alkaline Phosphatase 107 U/L (40-110); Anion Gap 22 mmol/L (10-20); BUN (Urea Nitrogen) 76 mg/dL (8.4-25.7); Bilirubin, Total 1.1 mg/dL (0.2-1.2); Calc. Creatinine Clearance 7 mL/min (70-130); Calcium 10.7 mg/dL (7.8-10.44); Carbon Dioxide 22 mmol/L (23-31); Chloride 98 mmol/L (98-107); Estimated GFR-MDRD 5; Globulin 3.7 g/dL (2.4-3.5); Glucose 86 mg/dL (80-115); Protein, Total 6.5 g/dL (5.8-8.1); Sodium 137 mmol/L (136-145)
[2019-11-23 06:03] LABS: Band 15 % (5-11); Hemoglobin 10.5 g/dL (14.0-18.0); Lymphocytes 5 % (21-51); MDiff Complete? YES; Mean Corpuscular HGB CONC 30.6 g/dL (32.0-36.0); Mean Corpuscular Hemoglobin 29.2 pg (27.0-31.0); Mean Corpuscular Volume 95.3 fL (78.0-98.0); Mean Platelet Volume 8.3 fL (7.4-10.4); Monocytes 7 % (0-10); Neutrophil 73 % (42-75); Platelet Count 209 thou/uL (130-400); Platelet Morphology Comment Appears Adequate; RBC Distribution Width 15.2 % (11.5-14.5); Red Blood Cell (RBC) Count 3.61 mill/uL (4.70-6.10); White Blood Cell (WBC) Count 24.1 thou/uL (4.8-10.8)
[2019-11-23 08:08] LABS: Vancomycin, Random 24.1 ug/mL (See Comment)
--- NOTE | 2019-11-23 08:41 | PDOC.HOSPP ---
- Subjective Encounter Date: 11/23/19 Encounter Time: 10:40 Subjective: Patient remains confused, but in no distress. Was febrile and tachycardic earlier, improving with Tylenol. Denies complaints. - Objective Vital Signs & Weight: Vital Signs (12 hours) Temp Pulse Resp BP Pulse Ox 11/23/19 08:33 102.2 F H 102 H 24 H 104/61 93 L 11/23/19 04:20 99.3 F 88 18 116/68 93 L 11/23/19 00:19 98.2 F 88 18 111/66 93 L 11/22/19 22:35 98.8 F 88 20 135/60 97 Weight Weight 188 lb 6.4 oz Result Diagrams: 11/23/19 05:09 11/23/19 05:09 Hospitalist ROS - Review of Systems ROS unobtainable: due to mental status - Medication Medications: Active Medications Generic Name Dose Route Start Last Admin Trade Name Freq PRN Reason Stop Dose Admin Acetaminophen 650 mg 11/22/19 21:19 11/23/19 06:17 Tylenol OK 650 mg Q4H PRN Administration Headache/Fever/Mild Pain (1-3) - Exam General - other findings: no respiratory distress currently, shivering a bit on and off ENT: moist mucosa Heart: RRR, no murmur, no gallops, no rubs Respiratory: CTAB, no wheezes, no rales, no ronchi Gastrointestinal: soft, non-tender, non-distended, normal bowel sounds Musculoskeletal - other findings: left amputation, right foot with dressing in place Psychiatric: lethargic Psychiatric - other findings: arousable, follows very basic commands, can't answer orientation questions Hosp A/P (1) Sepsis Code(s): A41.9 - SEPSIS, UNSPECIFIED ORGANISM Status: Acute (2) Cellulitis Code(s): L03.90 - CELLULITIS, UNSPECIFIED Status: Acute Qualifiers: Site of cellulitis: extremity Site of cellulitis of extremity: lower extremity (3) Gangrene Status: Acute - Plan Patient on Vancomycin and Cefepime Spiking high fevers this morning even after Tylenol Blood cultures pending Nephrology consulted for dialysis Surgery consulted for infected foot with PVD and recent stent
[2019-11-23] MEDS ORDERED: Apixaban 2.5 MG TAB PO SCH (09:00)
[2019-11-23] MEDS ORDERED: Apixaban 5 MG TAB PO SCH (09:00)
--- NOTE | 2019-11-23 10:14 | CON ---
DATE OF CONSULTATION: HISTORY OF PRESENT ILLNESS: Mr. Valencia is a 64-year-old black gentleman with ESRD - on maintenance hemodialysis, was admitted for mental status change. This was associated with fever. He was found to have right foot infection/gangrene. Recently, the patient has stent placement on the right leg with Dr. Vincenzo Emmanuel. We are now being consulted for management of his ESRD as well as maintenance hemodialysis. REVIEW OF SYSTEMS: Currently, positive for fever. Positive for confusion. Positive for right foot pain. No nausea. No vomiting. Decreased appetite. Decreased energy level. No headache. No diplopia. No syncopal episode. No dysuria. No urinary frequency. No productive cough. No abdominal pain. MEDICATIONS: Currently on; 1. Acetaminophen 650 mg q.4. 2. Cordarone 200 mg daily. 3. Apixaban 5 mg p.o. b.i.d. 4. Aspirin 81 mg q.a.m. 5. Atorvastatin 40 mg tablet at bedtime. 6. Cefepime 0.5 mg IV daily. 7. Cymbalta 30 mg daily. 8. Hydrocodone one to two tabs q.4 p.r.n. 9. Sevelamer 800 mg 3 tabs t.i.d. with meals. 10. Status post vancomycin - on sliding scale. PAST MEDICAL HISTORY: 1. ESRD, on maintenance hemodialysis from longstanding hypertension. 2. Longstanding hypertension, ischemic cardiomyopathy. 3. Status post CHF. 4. Coronary artery disease. 5. Hyperlipidemia. 6. Chronic low back pain. 7. Peripheral vascular disease. PAST SURGICAL HISTORY: Status post AV fistula placement, status post cuffed dialysis catheter placement, status post back surgery, status post cardiac cath, status post stent placement of the right lower extremity, status post AICD placement, and history of status post left BKA. 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 He lives in [place]. He has 7 children, smoked for 14 years, 2 packs a day. No alcohol. No IV drug abuse. Status post blood transfusion. Education, high school. The patient is . ALLERGIES: NONE. TRAUMA: None. IMMUNIZATIONS: Up-to-date. HOSPITALIZATIONS: Please see past medical history. FAMILY HISTORY: No family history of ESRD. PHYSICAL EXAMINATION: VITAL SIGNS: Blood pressure is noted at 104/61, heart rate 102, temperature 101.9, respiratory rate 24, and O2 saturation 93%. GENERAL: The patient is awake, alert, comfortable, not in distress. SKIN: Adequate turgor. HEENT: He has pinkish conjunctivae. Anicteric sclerae. NECK: No neck mass. No carotid bruits. No JVD. CHEST: No deformities. LUNGS: Clear breath sounds. No wheezing. No crackles. HEART: Normal sinus rhythm. No murmur. No gallops. No rubs. ABDOMEN: Globular, soft, and nontender. No masses. EXTREMITIES: No edema. The patient is status post left BKA. He has a right foot dressing - positive for right foot gangrene. NEUROLOGIC: The patient is disoriented, not in cardiorespiratory distress. Moving all extremities. LABORATORY DATA: Laboratories of November 23, 2019; white count 24.1, hemoglobin 10.5. Sodium 137, potassium 5, chloride 98, carbon dioxide 22, BUN 76, creatinine 11.91, calcium 10.7, AST 84, ALT 31, and albumin 2.8. ASSESSMENT AND PLAN: 1. Right foot gangrene/peripheral vascular disease - IV antibiotics. Currently, on vancomycin. Surgical consult has been done with Dr. Vincenzo Emmanuel. 2. End-stage renal disease, stable. We will continue current Saturday, Saturday, and Saturday hemodialysis regimen. Fluid removal only as tolerated by the patient. 3. Peripheral vascular disease with status post stent placement. Adjust Eliquis to 2.5 mg tablet b.i.d. for renal dosing. Overall, prognosis remains guarded. Job ID: [id number]
[2019-11-23] MEDS: Amiodarone 200 MG TAB PO SCH (10:26)
[2019-11-23] MEDS: Aspirin Chewable 81 MG TAB PO SCH (10:27)
[2019-11-23] MEDS: DULoxetine 30 MG CAP PO SCH (10:27)
[2019-11-23] MEDS ORDERED: PHENYLEPHRINE-NS 100 MCG/ML 10 ML SYRINGE ONE ×2 (10:44→14:08)
[2019-11-23] MEDS ORDERED: Ondansetron PF 4 MG/2 ML Vial ONE (10:44)
[2019-11-23] MEDS ORDERED: Lidocaine 1% PF 5 ML VIAL ONE (10:44)
[2019-11-23] MEDS ORDERED: Succinylcholine Chloride 20 MG/ML 10 ml SYRINGE FS ONE (10:44)
[2019-11-23] MEDS ORDERED: Dexamethasone 20 MG/5 ML VIAL ONE (10:44)
[2019-11-23] MEDS ORDERED: HUM PROTHROMBIN CPLX IV SCH (11:45)
[2019-11-23] MEDS ORDERED: [UNRECOGNIZED DRUG - OTHER] IV SCH (11:45)
[2019-11-23] MEDS ORDERED: ADMIXTURE FEE IV SCH (11:45)
[2019-11-23] MEDS: Sevelamer Carbonate 800 MG TAB PO SCH ×2 (12:02→20:48)
--- NOTE | 2019-11-23 13:20 | CON ---
DATE OF CONSULTATION: HISTORY OF PRESENT ILLNESS: Luciano Valencia is a 64-year-old black male who has end-stage renal disease, on dialysis, using a left arm basilic vein transposition fistula, that was established in 2004. He has had multiple operations regarding dialysis access. In 2005, he had a graft placed because of repeated thrombosis. In 12/2005, he had a temporary dialysis catheter placed. He has exhausted ewiiaapaayp vein fistulas in both arms. In 06/2014, Dr. Vincenzo Emmanuel aborted a femoral peroneal in situ vein bypass due to lack of vein. He underwent a left rcqbp-vnr-hesl amputation in 11/2014. On 02/01/2017, I performed a mesh repair of a right inguinal hernia. On 02/04/2017, I repaired his left inguinal hernia with mesh open. On 04/01/2018, Dr. Marquez had performed a cystoscopy and bladder biopsy and Dr. Vincenzo Emmanuel on 10/26/2019 performed an arteriogram to evaluate his right leg due to gangrene. He did a right proximal femoral-popliteal artery graft. The patient has developed gangrene of his right foot. He has fevers to 101 degrees to 102 degrees. Blood culture has been negative to date. Foot x-ray this hospitalization of right foot reveals arterial sclerosis and edema. Chest x-ray reveals no acute pulmonary disease. The patient has a history of cardiomyopathy. He is followed by Dr. Mae for his dialysis. He has a history of induced ventricular tachycardia and Single-chamber ICD, has a cardiac ejection fraction of 15% and 20% and has been followed by Dr. Reza in the past. He has been evaluated and felt not to be a candidate for cardiac bypass surgery. ALLERGIES: NONE. SOCIAL HISTORY: Tobacco unknown as the patient is confused. The patient is noted to be a former smoker. FAMILY HISTORY: Unknown due to his confusion. PAST MEDICAL HISTORY: 1. Coronary artery disease. 2. Congestive heart failure. 3. Hypertension. 4. Hyperlipidemia. 5. End-stage renal disease, on maintenance dialysis. PAST SURGICAL HISTORY: As listed above. PHYSICAL EXAMINATION: GENERAL: The patient is communicative with intelligible words, but is confused. VITAL SIGNS: Temperature 101.9 degrees, heart rate 102, and blood pressure 104/61. HEAD, EARS, EYES, NOSE AND THROAT: Unremarkable. LUNGS: Clear to auscultation. CARDIAC: Regular rate and rhythm without murmur or gallop. ABDOMEN: Soft and nontender. EXTREMITIES: Status post left below-knee amputation. He has gangrene of his right foot. He is unable to move his toes. He has nonpalpable popliteal pulse on the right. ASSESSMENT AND PLAN: Severe peripheral arterial disease with gangrene, right foot. He has gangrene with purulent discharge from between the toes. He has sloughing skin. He has ischemic changes to his mid right leg. I had spoken with his and would recommend amputation of the right leg above the knee. She understands risks and benefits and consents. The patient currently is on vancomycin and cefepime. His medications include Eliquis, amiodarone, aspirin, and carvedilol. We will type and cross him and follow his hemoglobins. Job ID: [id number]
[2019-11-23] MEDS ORDERED: Fentanyl 250 MCG/5 ML VIAL ONE (14:08)
[2019-11-23] MEDS ORDERED: Phenylephrine 10 MG/ML VIAL ONE (14:41)
[2019-11-23 14:55] LABS: Potassium 3.8 mmol/L (3.5-5.1)
[2019-11-23] MEDS ORDERED: Ventilator Sedation Protocol 1 EACH FS SCH (16:15)
[2019-11-23] MEDS ORDERED: DISCONTINUE PREVIOUS NARCOTIC PAIN MEDICATIONS AND BENZODIAZEPINES FS SCH (16:17)
[2019-11-23] MEDS ORDERED: fentaNYL Citrate/PF 2,000 MCG in Sodium Chloride 0.9% 60 ML IV SCH (16:17)
[2019-11-23] MEDS ORDERED: Fentanyl BOLUS 250 ML IVPB PRN (16:17)
[2019-11-23] MEDS ORDERED: Morphine 2 MG/ML SYRINGE SLOW IVP PRN (16:17)
[2019-11-23] MEDS ORDERED: Lorazepam 2 MG/ML VIAL SLOW IVP PRN (16:17)
[2019-11-23] MEDS ORDERED: Propofol BOLUS 1,000 MG/100 ML VIAL IV PRN (16:17)
[2019-11-23] MEDS ORDERED: Propofol 1,000 MG/100 ML VIAL IV PRN (16:17)
[2019-11-23 16:31] LABS: Actual Bicarbonate (HCO3a) 21.3 mEq/L (22-28); CO2 Tension 31.2 mmHg (35.0-45.0); Calcium, Ionized (arterial) 1.21 mmol/L (1.12-1.30); Hemoglobin (Hb) 10.8 g/dL (14.0-18.0); O2 Tension (PaO2), arterial 78.5 mmHg (> 80.0); Potassium - ABG Lab 5.09 mmol/L (3.70-5.30); pH, Arterial 7.45 (7.35-7.45)
[2019-11-23] MEDS ORDERED: Ondansetron HCl/PF 4 MG/2 ML Vial IVP PRN (16:37)
--- NOTE | 2019-11-23 18:01 | RAD ---
Chest AP view INDICATION: PACU and intubation COMPARISON: 11/22/2019 FINDINGS: Lungs: There is worsening airspace opacity in the left lower lobe suspicious for an area of either s ubsegmental volume loss or possibly mild aspiration. Right lung is clear Cardiac silhouette: Mild cardiomegaly is stable. Pulmonary vasculature: Normal Pleural spaces: No pleural effusion or pneumothorax is demonstrated. Upper abdomen: No abnormality seen. Osseous structures: No acute osseous abnormality. Additional findings: Right-sided AICD is unchanged. The Patient has been intervally intubated with t he ET tube tip is seen 4.6 cm above the level of the ernst. Endovascular grafts are seen within the soft tissues of the left axilla. There is instrumented healed right clavicular fracture. IMPRESSION: Interval intubation. Worsening opacity within the left lung base may reflect subsegmental volume loss ; however, aspiration cannot be entirely excluded. There is stable mild cardiomegaly without evidence of cardiac decompensation.
--- NOTE | 2019-11-23 18:18 | OP ---
DATE OF PROCEDURE: 11/23/2019 PREOPERATIVE DIAGNOSES: 1. End-stage renal disease. 2. Severe cardiomyopathy. 3. Gangrene, right foot. 4. Sepsis. 5. Fever. 6. Peripheral arterial disease. POSTOPERATIVE DIAGNOSES: 1. End-stage renal disease. 2. Severe cardiomyopathy. 3. Gangrene, right foot. 4. Sepsis. 5. Fever. 6. Peripheral arterial disease. PROCEDURE PERFORMED: Right ewazg-jdm-agio amputation. ANESTHESIA: General. ESTIMATED BLOOD LOSS: 100 mL. DESCRIPTION OF PROCEDURE: The patient was taken to the operating room where under general anesthesia, right lower extremity was prepared with ChloraPrep and draped in routine fashion. Incision was made from above the amputation with a fishmouth incision, carried down to skin, subcutaneous tissue, and fascia, dividing muscular layers with the cautery and vascular bundles between clamps, ligating with 2-0 silk ties. Femur cleared proximally with a periosteal elevator and femur transected with a Gigli saw, smoothing the edge with a rasp, irrigating it. Good hemostasis was obtained with cautery and 2-0 silk ties and fascia approximated with 2-0 Vicryl and skin with celso. Sterile dressing applied. Job ID: [id number]
[2019-11-23] MEDS: Sodium Chloride 0.9% 1,000 ML IV SCH (20:15)
[2019-11-23 20:26] LABS: Anion Gap 24 mmol/L (10-20); BUN (Urea Nitrogen) 92 mg/dL (8.4-25.7); Calc. Creatinine Clearance 7 mL/min (70-130); Calcium 10.6 mg/dL (7.8-10.44); Carbon Dioxide 21 mmol/L (23-31); Chloride 100 mmol/L (98-107); Estimated GFR-MDRD 5; Glucose 116 mg/dL (80-115); Magnesium 2.5 mg/dL (1.6-2.6); Potassium 5.5 mmol/L (3.5-5.1); Sodium 139 mmol/L (136-145)
[2019-11-23] MEDS: Atorvastatin Calcium 40 MG TAB PO SCH (21:22)
[2019-11-23] MEDS: Cefepime 0.5 GM, Admixture Fee 1 EACH in Sodium Chloride 0.9% 100 ML IVPB SCH (21:22)
--- NOTE | 2019-11-23 22:23 | CON ---
DATE OF CONSULTATION: 11/23/2019 CONSULTING PHYSICIAN: Serge Anderson MD REASON FOR CONSULTATION: Postoperative ventilator management. This is a 35 minutes critical care time. HISTORY OF PRESENT ILLNESS: The patient is a 64-year-old male, who presented to the hospital yesterday with severe peripheral gangrene to the right foot. He underwent ekxri-mwa-ffol amputation on the right in the operating room today. He was left intubated afterwards. My understanding is he is behind on his dialysis, having not been dialyzed since last Saturday and is due for dialysis later today. PAST MEDICAL HISTORY: 1. End-stage renal disease, requiring dialysis. 2. Peripheral vascular disease. 3. Coronary artery disease. 4. Congestive heart failure. 5. Hypertension. 6. Hyperlipidemia. PAST SURGICAL HISTORY: Multiple vascular procedures in the past. He has a left below-knee amputation. He has a left arm AV fistula. He has an ICD. FAMILY MEDICAL HISTORY: Unknown. SOCIAL HISTORY: Former smoker. REVIEW OF SYSTEMS: Cannot be obtained at this time because he is intubated. PHYSICAL EXAMINATION: VITAL SIGNS: Pulse 80, blood pressure 116/80, respiratory rate 18, and O2 saturation 100%. GENERAL: He is currently intubated on mechanical ventilation. HEENT: Unremarkable. NECK: No adenopathy or JVD. CHEST: Several keloid scars. LUNGS: Coarse rhonchi bilaterally. CARDIOVASCULAR: S1 and S2. Regular. ABDOMEN: Soft and nontender. EXTREMITIES: Left arm pulsating fistula. He has an arterial line in his right radial artery. He has peripheral IV on the right arm. He has a left below-knee amputation. There is a right above-knee amputation with a fresh bandage. LABORATORY DATA: ABG; pH of 7.45, pCO2 of 31, and pO2 of 78. White blood cell count 24, hematocrit 34, and platelet count 209. Sodium 137, potassium 5, chloride 98, CO2 of 22, BUN 76, creatinine 11, and glucose 86. ASSESSMENT: 1. Postop ventilator. 2. Pulmonary edema. 3. Peripheral vascular disease. PLAN: 1. The patient is currently receiving antibiotics for the gangrene. 2. He will have dialysis later tonight. 3. He will probably be extubated the morning if his blood gas parameters look okay as volume situations adequate. Job ID: [id number]
[2019-11-24 03:42] LABS: Band 1 % (5-11); Hemoglobin 10.3 g/dL (14.0-18.0); Hypochromia SLIGHT = 6-15 cells (100X) (0-5/hpf); Lymphocytes 4 % (21-51); MDiff Complete? YES; Mean Corpuscular HGB CONC 32.3 g/dL (32.0-36.0); Mean Corpuscular Hemoglobin 30.6 pg (27.0-31.0); Mean Corpuscular Volume 94.9 fL (78.0-98.0); Mean Platelet Volume 9.3 fL (7.4-10.4); Monocytes 7 % (0-10); Neutrophil 88 % (42-75); Platelet Count 228 thou/uL (130-400); Platelet Morphology Comment Appears Adequate; RBC Distribution Width 15.2 % (11.5-14.5); Red Blood Cell (RBC) Count 3.37 mill/uL (4.70-6.10); White Blood Cell (WBC) Count 16.6 thou/uL (4.8-10.8)
[2019-11-24 03:45] LABS: Anion Gap 25 mmol/L (10-20); BUN (Urea Nitrogen) 103 mg/dL (8.4-25.7); Calc. Creatinine Clearance 7 mL/min (70-130); Calcium 10.7 mg/dL (7.8-10.44); Carbon Dioxide 19 mmol/L (23-31); Chloride 99 mmol/L (98-107); Estimated GFR-MDRD 5; Glucose 116 mg/dL (80-115); Potassium 5.4 mmol/L (3.5-5.1); Sodium 138 mmol/L (136-145)
--- NOTE | 2019-11-24 07:56 | RAD ---
EXAM: Single view of the chest HISTORY: Ventilated patient with respiratory failure COMPARISON: 11/23/2019 FINDINGS: Single view of the chest shows a normal sized cardiomediastinal silhouette. The pacemaker is unchanged in position. The endotracheal tube is unchanged in position. There may be a small left pleural effusion. Hardware is seen on the right clavicle. IMPRESSION: Stable small left pleural effusion
[2019-11-24 08:17] LABS: Actual Bicarbonate (HCO3a) 18.9 mEq/L (22-28); Calcium, Ionized (arterial) 1.24 mmol/L (1.12-1.30); Carboxyhemoglobin (COHb) 0.4 gm% (0.0-3.0); Hemoglobin (Hb) 11.1 g/dL (14.0-18.0); O2 Tension (PaO2), arterial 126.3 mmHg (> 80.0); Potassium - ABG Lab 5.33 mmol/L (3.70-5.30)
[2019-11-24 08:18] LABS: CO2 Tension 24.9 mmHg (35.0-45.0); Puncture Site ALINE
--- NOTE | 2019-11-24 08:18 | PRG ---
DATE OF SERVICE: 11/24/2019 35 minutes of critical care time. SUBJECTIVE: The patient remains intubated on mechanical ventilation postop from surgery yesterday. He will wake up, follow commands for me. OBJECTIVE: VITAL SIGNS: Temperature 97.9, pulse 70, blood pressure 102/64. Intake 604, output zero. HEENT: Unremarkable. NECK: No adenopathy or JVD. LUNGS: Coarse breath sounds. CARDIOVASCULAR: S1, S2. Paced. ABDOMEN: Soft and nontender. EXTREMITIES: He has a right faitq-svi-tpqt amputation. Left irctl-llw-sony amputation. AV fistula of left arm. LABORATORY DATA: ABG pending. White blood cell count 16.6, hematocrit 32, and platelet count 228. Sodium 138, potassium 5.4, chloride 99, CO2 of 19, BUN 103, creatinine 13, glucose 116. IMAGING DATA: X-ray actually looks fairly clear. ASSESSMENT: 1. Status post right nuwpr-ybn-nwzi amputation for a gangrenous right leg. 2. Chronic renal failure, needs dialysis today. 3. Peripheral vascular disease. 4. Coronary artery disease. 5. History of congestive heart failure, systolic. 6. Acute respiratory failure, requiring mechanical ventilation. 7. Hypertension. 8. Hyperlipidemia. PLAN: The patient will likely be extubated after dialysis today. I think most of his arrhythmia activity has to do with electrolyte issues related to his renal failure. Hopefully, that will improve after dialysis today. We will follow. Job ID: [id number]
[2019-11-24 08:19] LABS: ALV-art Gradient 199.075 (0-20)
[2019-11-24] MEDS: Amiodarone 200 MG TAB PO SCH (08:55)
[2019-11-24] MEDS: Aspirin Chewable 81 MG TAB PO SCH (08:55)
[2019-11-24] MEDS: Sevelamer Carbonate 800 MG TAB PO SCH ×3 (08:55→16:58)
[2019-11-24] MEDS: DULoxetine 30 MG CAP PO SCH (08:56)
--- NOTE | 2019-11-24 09:21 | PDOC.HOSPP ---
- Subjective Encounter Date: 11/24/19 Encounter Time: 16:00 Subjective: Patient had right aka done by Dr. Anderson, watched in the ICU overnight and extubated today. Doing well since then. Still confused but more alert and responsive than yesterday. - Objective Vital Signs & Weight: Vital Signs (12 hours) Temp Pulse Resp Pulse Ox 11/24/19 08:20 71 11/24/19 08:00 98.8 F 25 H 100 11/24/19 06:00 16 11/24/19 04:00 97.9 F 20 11/24/19 02:00 16 11/24/19 01:00 78 11/24/19 00:00 98.7 F 16 11/23/19 22:00 16 11/23/19 21:54 75 Weight Admit Weight 188 lb Weight 188 lb 6.4 oz Most Recent Monitor Data Heart Rate from ECG 69 NIBP 114/68 NIBP BP-Mean 83 Respiration from ECG 16 SpO2 100 I&O: 11/23/19 11/24/19 11/25/19 06:59 06:59 06:59 Intake Total 604 31.1 Balance 604 31.1 Result Diagrams: 11/24/19 02:56 11/24/19 02:56 Hospitalist ROS - Review of Systems ROS unobtainable: due to mental status - Medication Medications: Active Medications Generic Name Dose Route Start Last Admin Trade Name Freq PRN Reason Stop Dose Admin Amiodarone HCl 200 mg 11/23/19 09:00 11/24/19 08:55 Cordarone PO Not Given DAILY [facility] Aspirin 81 mg 11/23/19 09:00 11/24/19 08:55 Aspirin Chewable PO Not Given QAM [facility] Atorvastatin Calcium 40 mg 11/23/19 21:00 11/23/19 21:22 Lipitor PO Not Given HS [facility] Duloxetine HCl 30 mg 11/23/19 09:00 11/24/19 08:56 Cymbalta PO Not Given DAILY [facility] Cefepime HCl 0.5 gm/ 100 mls @ 200 mls/hr 11/23/19 20:00 11/23/19 21:22 Miscellaneous Medication 1 IVPB 100 mls each/ Sodium Chloride 2000 [facility] Administration Prothrombin Complex Concent ( mls @ 0 mls/hr 11/23/19 11:45 11/23/19 12:07 Human) 2,135 unit/ IV 77.5 mls Miscellaneous Medication INF [facility] Administration Protocol As Directed Sodium Chloride 1,000 mls @ 50 mls/hr 11/23/19 16:15 11/23/19 20:15 Normal Saline 0.9% IV 1,000 mls .Q20H [facility] Administration Sevelamer Carbonate 2,400 mg 11/23/19 12:00 11/24/19 08:55 Renvela PO Not Given TID-WM [facility] - Exam General Appearance: NAD General - other findings: sleepy but arousable ENT: moist mucosa Heart: RRR, no murmur, no gallops, no rubs Respiratory: CTAB, no wheezes, no rales, no ronchi Gastrointestinal: soft, non-tender, non-distended, normal bowel sounds Musculoskeletal - other findings: right AKA stump with dressing c/d/i Psychiatric: oriented to person, somnolent Hosp A/P (1) Sepsis Code(s): A41.9 - SEPSIS, UNSPECIFIED ORGANISM Status: Acute (2) Cellulitis Code(s): L03.90 - CELLULITIS, UNSPECIFIED Status: Acute Qualifiers: Site of cellulitis: extremity Site of cellulitis of extremity: lower extremity Laterality: right Qualified Code(s): L03.115 - Cellulitis of right lower limb (3) Gangrene Status: Acute (4) Right above-knee amputee Code(s): Z89.611 - ACQUIRED ABSENCE OF RIGHT LEG ABOVE KNEE Status: Acute - Plan Patient on Vancomycin and Cefepime Spiking high fevers yesterday, none since amputation Blood cultures pending Nephrology consulted for dialysis Post-op mechanical ventilation now extubated and doing well.
--- NOTE | 2019-11-24 09:35 | PRG ---
DATE OF SERVICE: 11/24/2019 SUBJECTIVE: Mr. Valencia is a 64-year-old black male with ESRD-maintenance hemodialysis and was admitted for right foot gangrene. He was noted to be septic. He has undergone a right echlu-oqa-ssin amputation. I have scheduled him for his dialysis. We will attempt a 4-hour hemodialysis with fluid removal as tolerated. OBJECTIVE: VITAL SIGNS: Blood pressure is 103/57, heart rate 69, respiratory rate 16, temperature 98.8, and pulse ox 100%. GENERAL: The patient is sedated and intubated, on ventilator support. SKIN: Adequate turgor. HEENT: He has pinkish conjunctivae. Anicteric sclerae. NECK: No neck mass. No carotid bruits. No JVD. CHEST: No deformities. LUNGS: Clear breath sounds. HEART: Normal sinus rhythm. No murmur. No gallops. No rubs. ABDOMEN: Globular, soft, and nontender. No masses. EXTREMITIES: Positive for bilateral leg amputations. MEDICATIONS: Medications of November 24, 2019, were reviewed. LABORATORY DATA: Laboratories of November 24, 2019; white count 16.6, hemoglobin 10.3. Sodium 138, potassium 5.4, chloride 99, carbon dioxide 19, BUN 103, creatinine 13.3, glucose 116, calcium 10.7. ASSESSMENT AND PLAN: 1. Right foot gangrene-the patient is status post right hrhbu-qtt-frus amputation. Also, the patient receiving empiric IV antibiotics. 2. End-stage renal disease, hemodialysis today for 4 hours. Fluid removal only as tolerated. Overall, agree with current management. Job ID: [id number]
[2019-11-24] MEDS ORDERED: Albumin 25% 25 GM/100 ML BOT IVPB SCH (10:45)
[2019-11-24 10:55] LABS: HBSAg Index 0.14 S/CO (0-0.99); Hep B Surf Ag Non-Reactive S/CO (NonReactive)
[2019-11-24] MEDS ORDERED: PROPOFOL 200 MG/20 ML VIAL ONE (10:58)
[2019-11-24] MEDS ORDERED: PHENYLEPHRINE-NS 100 MCG/ML 10 ML SYRINGE ONE (10:58)
[2019-11-24] MEDS: Sodium Chloride 0.9% 1,000 ML IV SCH (12:39)
--- NOTE | 2019-11-24 14:19 | PQF ---
DATE: 11-24-19 ATTN: DR. BRENT BRIGHT / DR. KATHLEEN SWARTZ Please exercise your independent, professional judgment in responding to the clarification form. Clinical indicators are provided on the bottom of this form for your review Please check appropriate box(s): [ x ] Encephalopathy: Type: [ x ] Acute [ ] Subacute [ ] Chronic Etiology: [ ] Metabolic [ ] Toxic [ ] Hypoxic [ x] Septic [ ] Other (please specify) [ ] Transient Alteration of Awareness [ ] Other diagnosis [ ] Unable to determine In addition, please specify: Present on Admission (POA): [x ] Yes [ ] No [ ] Unable to determine For continuity of documentation, please document condition throughout progress notes and discharge summary. Thank You. CLINICAL INDICATORS - SIGNS / SYMPTOMS / LABS / RESULTS AND LOCATION IN EMR: ER NOTES 11-22-19: AMS, LAST NIGHT HE BECAME ALTERED AND STARTED RUNNING A FEVER, REPORTS LETHARGY H&P: 11-22-19: CELLULITIS, SEPSIS, ESRD PROGRESS NOTE 11-23-19: PATIENT REMAINS CONFUSED, BUT NO DISTRESS CONSULT NOTE DR. HO 11-23-19: THE PATIENT IS DISORIENTED CONSULT NOTE DR. BAILEY 11-24-19: S/P R AKA FOR GANGRENOUS R LEG, PVD, CHRONIC RENAL FAILURE, ACUTE RESPIRATORY FAILURE, REQUIRING MECHANICAL VENT RISK FACTORS / RESULTS AND LOCATION IN EMR: H&P: 11-22-19: CELLULITIS, SEPSIS, ESRD CONSULT NOTE DR. BAILYE 11-24-19: S/P R AKA FOR GANGRENOUS R LEG, PVD, CHRONIC RENAL FAILURE, ACUTE RESPIRATORY FAILURE, REQUIRING MECHANICAL VENT TREATMENTS / RESULTS AND LOCATION IN EMR: ER NOTES 11-22-19: VANCOMYCIN IV, CEFEPIME IV, IVF (This form is maintained as a part of the permanent medical record) 2014 [employer] All Rights Reserved MICHAEL [email or web address] [facility]
--- NOTE | 2019-11-24 16:05 | PRG ---
DATE OF SERVICE: 11/24/2019 SUBJECTIVE: Mr. Valencia is intubated in ICU still. He underwent hxmjf-tjs-mhfw amputation last night for a septic foot. He has been afebrile. OBJECTIVE: VITAL SIGNS: Heart rate 78, blood pressure 112/68. LUNGS: Clear to auscultation. CARDIAC: Regular rate and rhythm without murmur or gallop. ABDOMEN: Soft. LABORATORY DATA: This morning, his white count is 16, down from 24,000, and hemoglobin 10.3. His electrolytes are appropriate per his renal failure. ASSESSMENT AND PLAN: The patient's right AKA wound dressings are dry. Dr. Fisher has seen him. His plan was to extubate him after dialysis today. We will plan to remove his dressing tomorrow. I have put in for rehab evaluation. He may need to go to a swing bed for therapy, transfer, training, mobility. Overall, he appears to be stable. Job ID: [id number]
--- NOTE | 2019-11-24 17:40 | EKG ---
Test Reason : Blood Pressure : / mmHG Vent. Rate : 084 BPM Atrial Rate : 084 BPM P-R Int : 132 ms QRS Dur : 134 ms QT Int : 434 ms P-R-T Axes : 067 -44 105 degrees QTc Int : 512 ms Atrial-sensed ventricular-paced rhythm with Premature atrial complexes with Abberant conduction Biventricular pacemaker detected Abnormal ECG When compared with ECG of 23-NOV-2019 12:22, Abberant conduction is now Present Vent. rate has decreased BY [address] Jennifer JORDAN (3) on 11/24/2019 5:39:55 PM Referred By: LEO Confirmed By:DR. Jennifer JORDAN
[2019-11-24] MEDS: Atorvastatin Calcium 40 MG TAB PO SCH (20:43)
[2019-11-24] MEDS: HYDROcodone/Acetaminophen 5/325 mg Tablet PO PRN (20:43)
[2019-11-24] MEDS: Cefepime 0.5 GM, Admixture Fee 1 EACH in Sodium Chloride 0.9% 100 ML IVPB SCH (20:43)
[2019-11-25 03:47] LABS: Anion Gap 20 mmol/L (10-20); BUN (Urea Nitrogen) 72 mg/dL (8.4-25.7); Calc. Creatinine Clearance 10 mL/min (70-130); Calcium 10.6 mg/dL (7.8-10.44); Carbon Dioxide 23 mmol/L (23-31); Chloride 100 mmol/L (98-107); Estimated GFR-MDRD 7; Glucose 106 mg/dL (80-115); Sodium 138 mmol/L (136-145)
[2019-11-25 03:52] LABS: Band 10 % (5-11); Hemoglobin 10.6 g/dL (14.0-18.0); Lymphocytes 8 % (21-51); MDiff Complete? YES; Mean Corpuscular HGB CONC 33.1 g/dL (32.0-36.0); Mean Corpuscular Hemoglobin 31.5 pg (27.0-31.0); Mean Corpuscular Volume 95.1 fL (78.0-98.0); Mean Platelet Volume 8.6 fL (7.4-10.4); Monocytes 4 % (0-10); Neutrophil 78 % (42-75); Platelet Count 243 thou/uL (130-400); Platelet Morphology Comment Appears Adequate; Red Blood Cell (RBC) Count 3.37 mill/uL (4.70-6.10); White Blood Cell (WBC) Count 18.3 thou/uL (4.8-10.8)
[2019-11-25 08:36] LABS: Vancomycin, Random 12.5 ug/mL (See Comment)
[2019-11-25] MEDS: Sevelamer Carbonate 800 MG TAB PO SCH ×3 (08:46→19:29)
[2019-11-25] MEDS: Sodium Chloride 0.9% 1,000 ML IV SCH ×2 (08:46→20:02)
[2019-11-25] MEDS: Aspirin Chewable 81 MG TAB PO SCH (08:51)
[2019-11-25] MEDS: DULoxetine 30 MG CAP PO SCH (08:51)
[2019-11-25] MEDS: Amiodarone 200 MG TAB PO SCH (08:52)
--- NOTE | 2019-11-25 09:07 | PRG ---
DATE OF SERVICE: 11/25/2019 SUBJECTIVE: He was extubated yesterday afternoon after dialysis without any difficulty. He is alert and oriented today, seems to be doing well. OBJECTIVE: VITAL SIGNS: Pulse 78, blood pressure 118/67, O2 saturation 98%, and his temperature is 98.5. HEENT: Unremarkable. NECK: No adenopathy or JVD. CHEST: Clear. CARDIAC: S1 and S2. Regular. ABDOMEN: Soft. EXTREMITIES: Right nudpl-xic-btap amputation. Left erjmn-mvy-kkwn amputation. LABORATORY DATA: White blood cell count 18, hematocrit 32, platelet count 243. Sodium 138, potassium 5, chloride 100, CO2 of 23, BUN 72, creatinine 8.9, and glucose 106. Cultures show no growth today. ASSESSMENT: 1. Status post right yzssk-asi-muqb amputation. 2. Transient respiratory failure related to postoperative fluid status. 3. Peripheral vascular disease. 4. Coronary artery disease with history of congestive heart failure, systolic. 5. Hypertension. 6. Hyperlipidemia. PLAN: The patient can be transferred to the surgical floor. He will have dialysis today per his regular schedule. He is continued on antibiotics per the primary team, although my feeling is, these could probably be consolidated. Pulmonary will follow peripherally. Job ID: [id number]
--- NOTE | 2019-11-25 09:23 | PRG ---
DATE OF SERVICE: 11/25/2019 SUBJECTIVE: Mr. Valencia is a 64-year-old black male with ESRD, was admitted for sepsis. He had infected right foot and underwent a right kibhq-wzv-jkfu amputation. Since that time, he is doing well. He is mentating better. He is currently undergoing hemodialysis. He did receive an extra dialysis yesterday due to a missed dialysis treatment. He voices no new complaints today except for postoperative pain. OBJECTIVE: VITAL SIGNS: Blood pressure 118/67, heart rate 77, respiratory rate 12, and O2 saturation 98%. GENERAL: He is noted to be awake, alert, and comfortable, not in distress. SKIN: Adequate turgor. HEENT: He has pinkish conjunctivae. Anicteric sclerae. NECK: No neck mass. No carotid bruits. No JVD. CHEST: No deformities. LUNGS: Clear breath sounds. HEART: Normal sinus rhythm. No murmurs, gallops, or rubs. ABDOMEN: Globular, soft, and nontender. No masses. EXTREMITIES: Status post bilateral leg amputation. MEDICATIONS: Medications of November 25, 2019 were reviewed. LABORATORY DATA: Laboratories of November 25, 2019; white count 18.3 and hemoglobin 10.6. Sodium 138, potassium 5, chloride 100, carbon dioxide 23, BUN 72, creatinine 8.98, glucose 106, and calcium 10.6. ASSESSMENT AND PLAN: 1. End-stage renal disease, stable, currently undergoing hemodialysis. The plan is to do a 3-hour hemodialysis today. Fluid removal only as tolerated. 2. Sepsis-clinically much improved. The patient underwent a right AKA due to infected right foot/gangrene. 3. Currently on IV antibiotics. 4. Agree with current management. Job ID: [id number]
[2019-11-25] MEDS ORDERED: Digoxin 0.5 MG/2 ML AMP ONE (09:54)
[2019-11-25] MEDS ORDERED: Digoxin 0.5 MG/2 ML AMP SLOW IVP SCH (10:30)
[2019-11-25] MEDS ORDERED: Amiodarone 150 MG, Admixture Fee 1 EACH in Dextrose 5% in Water 100 ML IVPB SCH ×2 (11:30→12:30)
[2019-11-25] MEDS: Amiodarone 450 MG, Admixture Fee 1 EACH in Dextrose 5% in Water 250 ML IVPB SCH ×3 (11:41→21:03)
[2019-11-25] MEDS: HYDROcodone/Acetaminophen 5/325 mg Tablet PO PRN ×2 (12:47→16:21)
--- NOTE | 2019-11-25 12:56 | PDOC.HOSPP ---
- Subjective Encounter Date: 11/25/19 Encounter Time: 11:00 Subjective: Patient seen and examined. No new complaints. No overnight events, pt developed afib with rvr this morning, he is on HD - Objective Vital Signs & Weight: Vital Signs (12 hours) Temp Pulse Pulse Ox 11/25/19 12:25 78 11/25/19 11:00 98.2 F 11/25/19 09:55 78 11/25/19 08:00 97 11/25/19 07:57 98.9 F 11/25/19 04:00 98.5 F Weight Admit Weight 188 lb Weight 188 lb 6.4 oz Most Recent Monitor Data Heart Rate from ECG 86 NIBP 129/71 NIBP BP-Mean 90 Respiration from ECG 17 SpO2 99 I&O: 11/24/19 11/25/19 11/26/19 06:59 06:59 06:59 Intake Total 604 797.1 100 Balance 604 797.1 100 Result Diagrams: 11/25/19 03:07 11/25/19 03:07 Radiology Reviewed by me: Yes EKG Reviewed by me: Yes Hospitalist ROS - Review of Systems ENT: denies: ear pain, ear discharge, nose pain, nose discharge, nose congestion , mouth pain, mouth swelling, throat pain, throat swelling, other Respiratory: denies: cough, dry, shortness of breath, hemoptysis, SOB with excertion, pleuritic pain, sputum, wheezing, other Cardiovascular: denies: chest pain, palpitations, orthopnea, paroxysmal noc. dyspnea, edema, light headedness, other Gastrointestinal: denies: nausea, vomiting, abdominal pain, diarrhea, constipation, melena, hematochezia, other Genitourinary: denies: dysuria, frequency, incontinence, hematuria, retention, other - Medication Medications: Active Medications Generic Name Dose Route Start Last Admin Trade Name Freq PRN Reason Stop Dose Admin Hydrocodone Bitart/Acetaminophen 2 tab 11/22/19 21:19 11/25/19 12:47 [place] 5/325 PO 2 tab Q4H PRN Administration Severe Pain (7-10) Amiodarone HCl 200 mg 11/23/19 09:00 11/25/19 08:52 Cordarone PO 200 mg DAILY MYNOR Administration Aspirin 81 mg 11/23/19 09:00 11/25/19 08:51 Aspirin Chewable PO 81 mg QAM MYNOR Administration Atorvastatin Calcium 40 mg 11/23/19 21:00 11/24/19 20:43 Lipitor PO 40 mg HS MYNOR Administration Duloxetine HCl 30 mg 11/23/19 09:00 11/25/19 08:51 Cymbalta PO 30 mg DAILY MYNOR Administration Vancomycin HCl 750 mg/ Sodium 250 mls @ 250 mls/hr 11/22/19 21:30 11/25/19 12 :30 Chloride IVPB 250 mls WILLCALL MYNOR Administration Cefepime HCl 0.5 gm/ 100 mls @ 200 mls/hr 11/23/19 20:00 11/24/19 20:43 Miscellaneous Medication 1 IVPB 100 mls each/ Sodium Chloride 2000 MYNOR Administration Sodium Chloride 1,000 mls @ 50 mls/hr 11/23/19 16:15 11/25/19 08:46 Normal Saline 0.9% IV Not Given .Q20H MYNOR Amiodarone HCl 450 mg/ 259 mls @ 0 mls/hr 11/25/19 11:30 11/25/19 12:29 Miscellaneous Medication 1 IVPB 259 mls each/ Dextrose/Water INF MYNOR Administration Protocol As Directed Amiodarone HCl 150 mg/ 103 mls @ 618 mls/hr 11/25/19 12:30 11/25/19 12:32 Miscellaneous Medication 1 IVPB 11/25/19 14:30 Not Given each/ Dextrose/Water NOW MYNOR Protocol Sevelamer Carbonate 2,400 mg 11/23/19 12:00 11/25/19 12:52 Renvela PO Not Given TID-WM MYNOR - Exam General Appearance: NAD, awake alert Eye: PERRL, anicteric sclera ENT: normocephalic atraumatic, no oropharyngeal lesions Neck: supple, symmetric, no JVD Heart: no murmur, no gallops, irregular Respiratory: CTAB, no wheezes, no rales Gastrointestinal: soft, non-tender, non-distended Extremities: no cyanosis, no clubbing Extremities - other findings: right aka Musculoskeletal: normal tone, normal strength Hosp A/P (1) Cellulitis Code(s): L03.90 - CELLULITIS, UNSPECIFIED Status: Resolved Qualifiers: Site of cellulitis: extremity Site of cellulitis of extremity: lower extremity Laterality: right Qualified Code(s): L03.115 - Cellulitis of right lower limb (2) ESRD (end stage renal disease) Code(s): N18.6 - END STAGE RENAL DISEASE Status: Acute (3) Gangrene Status: Resolved (4) Right above-knee amputee Code(s): Z89.611 - ACQUIRED ABSENCE OF RIGHT LEG ABOVE KNEE Status: Acute (5) Sepsis Code(s): A41.9 - SEPSIS, UNSPECIFIED ORGANISM Status: Acute Qualifiers: Sepsis type: sepsis due to unspecified organism Acute renal failure type: unspecified (6) Cardiomyopathy Code(s): I42.9 - CARDIOMYOPATHY, UNSPECIFIED Status: Chronic (7) Dyslipidemia Code(s): E78.5 - HYPERLIPIDEMIA, UNSPECIFIED Status: Chronic (8) Hypertension Code(s): I10 - ESSENTIAL (PRIMARY) HYPERTENSION Status: Chronic (9) Atrial fibrillation with RVR Code(s): I48.91 - UNSPECIFIED ATRIAL FIBRILLATION Status: Acute - Plan old records reviewed/req, plan discussed w/ family, continue antibiotics continue antibiotic as ordered continue HD as per nephrology will give digoxin one time dose for afib and consult cardiology will interogate his icd as he has icd firing post operative care as per surgeon medication reviewed symptomatic treatment post operatively stable amiodaron drip started by cardiology
[2019-11-25] MEDS ORDERED: Loperamide HCl 2 MG CAP PO PRN (14:11)
[2019-11-25] MEDS ORDERED: Senokot S 8.6-50 MG TAB PO PRN (14:11)
[2019-11-25] MEDS ORDERED: Bisacodyl 10 MG SUPP PR PRN (14:11)
[2019-11-25] MEDS ORDERED: Artificial Tears 18 DROP/0.9 ML EA EYE PRN (14:11)
[2019-11-25] MEDS ORDERED: Sodium Chloride 0.65% Nasal 44 ML BOT EA NARE PRN (14:11)
[2019-11-25] MEDS ORDERED: Cepastat Lozenges 1 LOZ PO PRN (14:11)
[2019-11-25] MEDS ORDERED: Diabetic Tussin 200 MG/10 ML UDCUP PO PRN (14:11)
[2019-11-25] MEDS ORDERED: Labetalol HCl 100 MG/20 ML VIAL SLOW IVP PRN (14:11)
[2019-11-25] MEDS ORDERED: Loratadine 10 MG TAB PO PRN (14:11)
[2019-11-25] MEDS ORDERED: Calcium Carbonate 500 MG ChewTAB PO PRN (14:11)
[2019-11-25] MEDS ORDERED: Metoclopramide HCl 10 MG/2 ML VIAL IVP PRN (14:12)
--- NOTE | 2019-11-25 17:10 | CON ---
DATE OF CONSULTATION: HISTORY OF PRESENT ILLNESS: The patient is a 64-year-old gentleman with a history of severe ischemic cardiomyopathy and atrial fibrillation, who had his AICD fire. The patient has a history of diffuse coronary artery disease. He underwent a cardiac catheterization in 2007. He had a 70% first diagonal lesion in his first diagonal branch, 80% obtuse marginal stenosis and an 80% lesion in the posterior descending artery with diffusely diseased. The right coronary artery was totally occluded. The patient was placed on medical therapy. He also was found to have a severe cardiomyopathy. He underwent a followup catheterization in 2008 and he was found to have an ejection fraction 20% to 25%. The LAD had a 20% proximal lesion, and 70% first diagonal lesion, left circumflex artery had an 80% second OM lesion, 80% PDA and a 90% lesion with diffuse disease. Right coronary artery had 100% mid occlusion. The patient has been subsequently on medical therapy. He has had placement of automatic implantable cardiac defibrillator. The patient was in his usual state of health when he was presented with sepsis and underwent an amputation of his left leg. The patient's AICD fired. He this morning developed recurrent tachycardia. He denied having any chest discomfort or palpitations. PAST MEDICAL HISTORY: Significant for 1. Coronary artery disease. 2. Cardiomyopathy. 3. End-stage renal disease. 4. Peripheral vascular disease. 5. Dyslipidemia. 6. Hypertension. 7. He has a history of atrial fibrillation. PAST SURGICAL HISTORY: He has had BKA, AV fistula surgery. He has had a hernia surgery. He has had a right AKA and left BKA. SOCIAL HISTORY: Nonsmoker. FAMILY HISTORY: Strong family history of heart disease. ALLERGIES: NO KNOWN DRUG ALLERGIES. MEDICATIONS: See nursing list. PHYSICAL EXAMINATION: GENERAL: Ill-appearing gentleman with a blood pressure of 110/77, heart rate is 90. NECK: No jugular venous distention. LUNGS: Clear to auscultation. HEART: Regular rate and rhythm. Normal S1, S2. ABDOMEN: Distended. EXTREMITIES: He is status post AKA and BKA. LABORATORY DATA: White blood cell count 18.3, hemoglobin 10.6, hematocrit 32.1, platelets are 243. Sodium 138, potassium 5.0, chloride 100, bicarbonate 23, BUN 72, creatinine was 8.9. His EKG revealed electronic ventricular pacemaker. hall monitor revealed rapid wide-complex tachycardia suggestive of atrial fibrillation. IMPRESSION: 1. Sepsis. 2. Status post right AKA. 3. Ischemic cardiomyopathy. 4. Diffuse coronary artery disease. 5. Hypertension. 6. Dyslipidemia. 7. Peripheral vascular disease. This gentleman presented, developed rapid tachycardia suggestive of atrial fibrillation. The patient has been off his amiodarone. We will give IV amiodarone, will interrogate the patient's defibrillator. We will follow this patient with you through his hospitalization. This is a critical care note, the time is 30 minutes. Job ID: [id number]
[2019-11-25] MEDS ORDERED: Bacitracin Zinc Ointment 30 gm TUBE TOP PRN (18:07)
--- NOTE | 2019-11-25 19:21 | PRG ---
DATE OF SERVICE: 11/25/2019 SUBJECTIVE: Mr. Valencia is transferred out of ICU, waiting a bed assignment on telemetry. He had an episode of atrial fibrillation during dialysis. Blood pressure is 88 to 92 over 60, respiratory rate 12, heart rate of 74. Hemoglobin was 10.6 this morning. Basic metabolic profile consistent with renal failure, otherwise unremarkable. Wound dressings removed. His right AKA stump looks good. There is no evidence of infection. ASSESSMENT AND PLAN: Status post right AKA. We would recommend follow up in my office in 2-1/2 to 3 weeks to remove celso. We would stop his antibiotics as blood cultures have been negative. We would recommend washing the AKA stump with soap and water every day and apply some antibiotic ointment and Telfa. At this point, I will see him as needed this hospitalization. The patient is ready for discharge home or to a longterm facility when appropriate from medical standpoint. Call if there are any more problems. Job ID: [id number]
[2019-11-25] MEDS: Atorvastatin Calcium 40 MG TAB PO SCH (20:07)
[2019-11-26 05:00] LABS: ALT (SGPT) 22 U/L (8-55); AST (SGOT) 34 U/L (5-34); Albumin 2.6 g/dL (3.4-4.8); Alkaline Phosphatase 83 U/L (40-110); Anion Gap 17 mmol/L (10-20); BUN (Urea Nitrogen) 53 mg/dL (8.4-25.7); Bilirubin, Total 0.5 mg/dL (0.2-1.2); Calc. Creatinine Clearance 13 mL/min (70-130); Carbon Dioxide 24 mmol/L (23-31); Chloride 99 mmol/L (98-107); Estimated GFR-MDRD 10; Globulin 3.6 g/dL (2.4-3.5); Glucose 94 mg/dL (80-115); Potassium 4.9 mmol/L (3.5-5.1); Protein, Total 6.2 g/dL (5.8-8.1); Sodium 135 mmol/L (136-145)
[2019-11-26 05:28] LABS: Band 1 % (5-11); Eosinophils 2 % (0-10); Hemoglobin 11.4 g/dL (14.0-18.0); Hypochromia SLIGHT = 6-15 cells (100X) (0-5/hpf); Lymphocytes 10 % (21-51); MDiff Complete? YES; Mean Corpuscular HGB CONC 33.3 g/dL (32.0-36.0); Mean Corpuscular Hemoglobin 31.9 pg (27.0-31.0); Mean Corpuscular Volume 95.8 fL (78.0-98.0); Mean Platelet Volume 8.4 fL (7.4-10.4); Monocytes 9 % (0-10); Neutrophil 78 % (42-75); Platelet Count 240 thou/uL (130-400); Platelet Morphology Comment Appears Adequate; RBC Distribution Width 15.4 % (11.5-14.5); Red Blood Cell (RBC) Count 3.56 mill/uL (4.70-6.10); White Blood Cell (WBC) Count 12.8 thou/uL (4.8-10.8)
--- NOTE | 2019-11-26 08:39 | PRG ---
DATE OF SERVICE: 11/26/2019 SUBJECTIVE: Mr. Valencia is a 64-year-old black male with ESRD and followed up by the [facility] for his hemodialysis. He did undergo hemodialysis and tolerated said treatment yesterday. No new complaints today. Please note, he was initially admitted for sepsis secondary to infected right foot. He has undergone a right BKA and is doing well. No new complaints today. No chest pain or shortness of breath. OBJECTIVE: VITAL SIGNS: Blood pressure 128/70, heart rate 74, respiratory rate 16, temperature 97.7, and O2 saturation 98% on room air. GENERAL: Awake, alert, and comfortable, not in distress. SKIN: Adequate turgor. HEENT: Pinkish conjunctivae. Anicteric sclerae. NECK: No neck mass. No carotid bruits. No JVD. CHEST: No deformities. LUNGS: Clear breath sounds. HEART: Normal sinus rhythm. No murmur. No gallops. No rubs. ABDOMEN: Globular, soft, and nontender. No masses. EXTREMITIES: Status post bilateral leg amputation. MEDICATIONS: Medications of November 26, 2019, reviewed. LABORATORY DATA: Laboratories of November 26, 2019; white count 12.8, hemoglobin 11.4. Sodium 135, potassium 4.9, chloride 99, carbon dioxide 24, BUN 53, creatinine 6.89, glucose 94, calcium 10, and albumin is 2.6. ASSESSMENT AND PLAN: 1. End-stage renal disease, stable, tolerating current hemodialysis regimen. I have scheduled him for dialysis tomorrow with fluid removal only as tolerated. 2. Status post sepsis/status post right [id number] amputation, doing well. The patient will be eventually transferred to rehab in a.m. 3. Agree with current management. No indication for emergency dialysis today. Job ID: [id number]
[2019-11-26] MEDS: Sevelamer Carbonate 800 MG TAB PO SCH ×3 (09:16→17:20)
[2019-11-26] MEDS: Amiodarone 200 MG TAB PO SCH (09:17)
[2019-11-26] MEDS: DULoxetine 30 MG CAP PO SCH (09:18)
[2019-11-26] MEDS: Aspirin Chewable 81 MG TAB PO SCH (09:18)
[2019-11-26] MEDS: HYDROcodone/Acetaminophen 5/325 mg Tablet PO PRN ×2 (09:20→17:20)
--- NOTE | 2019-11-26 09:56 | PDOC.HOSPP ---
- Subjective Encounter Date: 11/26/19 Encounter Time: 07:50 Subjective: Patient seen and examined. No new complaints. No overnight events - Objective Vital Signs & Weight: Vital Signs (12 hours) Temp Pulse Resp BP Pulse Ox 11/26/19 07:29 97.7 F 74 16 128/70 98 11/26/19 04:18 97.7 F 74 16 121/72 98 11/26/19 00:30 110/65 Weight Admit Weight 188 lb Weight 188 lb 6.4 oz Most Recent Monitor Data Heart Rate from ECG 74 NIBP 88/52 NIBP BP-Mean 64 Respiration from ECG 12 SpO2 97 I&O: 11/25/19 11/26/19 11/27/19 06:59 06:59 06:59 Intake Total 797.1 749 Output Total 600 Balance 797.1 149 Result Diagrams: 11/26/19 04:30 11/26/19 04:30 EKG Reviewed by me: Yes Hospitalist ROS - Review of Systems Eyes: denies: pain, vision change, conjunctivae inflammation, eyelid inflammation, redness, other ENT: denies: ear pain, ear discharge, nose pain, nose discharge, nose congestion , mouth pain, mouth swelling, throat pain, throat swelling, other Respiratory: denies: cough, dry, shortness of breath, hemoptysis, SOB with excertion, pleuritic pain, sputum, wheezing, other Cardiovascular: denies: chest pain, palpitations, orthopnea, paroxysmal noc. dyspnea, edema, light headedness, other Gastrointestinal: denies: nausea, vomiting, abdominal pain, diarrhea, constipation, melena, hematochezia, other Genitourinary: denies: dysuria, frequency, incontinence, hematuria, retention, other Musculoskeletal: denies: neck pain, shoulder pain, arm pain, back pain, hand pain, leg pain, foot pain, other - Medication Medications: Active Medications Generic Name Dose Route Start Last Admin Trade Name Freq PRN Reason Stop Dose Admin Hydrocodone Bitart/Acetaminophen 2 tab 11/22/19 21:19 11/26/19 09:20 [place] 5/325 PO 2 tab Q4H PRN Administration Severe Pain (7-10) Amiodarone HCl 200 mg 11/23/19 09:00 11/26/19 09:17 Cordarone PO 200 mg DAILY MYNOR Administration Aspirin 81 mg 11/23/19 09:00 11/26/19 09:18 Aspirin Chewable PO 81 mg QAM MYNOR Administration Atorvastatin Calcium 40 mg 11/23/19 21:00 11/25/19 20:07 Lipitor PO 40 mg HS MYNOR Administration Duloxetine HCl 30 mg 11/23/19 09:00 11/26/19 09:18 Cymbalta PO 30 mg DAILY MYNOR Administration Amiodarone HCl 450 mg/ 259 mls @ 0 mls/hr 11/25/19 11:30 11/25/19 21:03 Miscellaneous Medication 1 IVPB 259 mls each/ Dextrose/Water INF MYNOR Administration Protocol As Directed Sevelamer Carbonate 2,400 mg 11/23/19 12:00 11/26/19 09:16 Renvela PO 2,400 mg TID-WM MYNOR Administration - Exam General Appearance: NAD, awake alert Eye: PERRL, anicteric sclera ENT: normocephalic atraumatic, no oropharyngeal lesions Neck: supple, symmetric, no JVD Heart: no murmur, no gallops, irregular Respiratory: CTAB, no wheezes, no rales, no ronchi Gastrointestinal: soft, non-tender, non-distended, normal bowel sounds Extremities - other findings: right AKA, left BKA Skin: normal turgor, no lesions Neurological: no focal deficits Musculoskeletal: normal tone, normal strength Psychiatric: normal affect, normal behavior Hosp A/P (1) Atrial fibrillation with RVR Code(s): I48.91 - UNSPECIFIED ATRIAL FIBRILLATION Status: Acute (2) Cellulitis Code(s): L03.90 - CELLULITIS, UNSPECIFIED Status: Resolved Qualifiers: Site of cellulitis: extremity Site of cellulitis of extremity: lower extremity Laterality: right Qualified Code(s): L03.115 - Cellulitis of right lower limb (3) ESRD (end stage renal disease) Code(s): N18.6 - END STAGE RENAL DISEASE Status: Acute (4) Gangrene Status: Resolved (5) Right above-knee amputee Code(s): Z89.611 - ACQUIRED ABSENCE OF RIGHT LEG ABOVE KNEE Status: Acute (6) Sepsis Code(s): A41.9 - SEPSIS, UNSPECIFIED ORGANISM Status: Acute Qualifiers: Sepsis type: sepsis due to unspecified organism Acute renal failure type: unspecified (7) Cardiomyopathy Code(s): I42.9 - CARDIOMYOPATHY, UNSPECIFIED Status: Chronic (8) Dyslipidemia Code(s): E78.5 - HYPERLIPIDEMIA, UNSPECIFIED Status: Chronic (9) Hypertension Code(s): I10 - ESSENTIAL (PRIMARY) HYPERTENSION Status: Chronic (10) Below-knee amputation of left lower extremity Code(s): S88.112A - COMPLETE TRAUM AMP AT LEV BETW KN AND LUCERO, L LOW LEG, INIT Status: Chronic - Plan old records reviewed/req continue antibiotic as ordered continue HD as per nephrology will give digoxin one time dose for afib and consult cardiology will interogate his icd as he has icd firing post operative care as per surgeon medication reviewed symptomatic treatment post operatively stable amiodaron drip started by cardiology 11/26/19 agree with dc antibiotic continue amiodaron chronic anticoagulation will defer to cardiology continue PT expecting discharge antonio
[2019-11-26] MEDS: Amiodarone 450 MG, Admixture Fee 1 EACH in Dextrose 5% in Water 250 ML IVPB SCH (13:55)
[2019-11-26] MEDS: Morphine 2 MG/ML SYRINGE SLOW IVP PRN (19:30)
[2019-11-26] MEDS: Atorvastatin Calcium 40 MG TAB PO SCH (20:36)
[2019-11-27] MEDS: Sevelamer Carbonate 800 MG TAB PO SCH ×3 (07:56→17:55)
[2019-11-27] MEDS: Amiodarone 450 MG, Admixture Fee 1 EACH in Dextrose 5% in Water 250 ML IVPB SCH (08:20)
--- NOTE | 2019-11-27 08:55 | PRG ---
DATE OF SERVICE: SUBJECTIVE: Mr. Valencia is a 64-year-old black male with ESRD, was initially admitted for infected right foot/sepsis. He has undergone a right BKA and is doing well. We are following up this patient for management of ESRD. He is currently undergoing hemodialysis. He does complain of some left hand swelling. The patient denies any chest pain or shortness of breath. OBJECTIVE: VITAL SIGNS: Blood pressure 122/65, heart rate 69, respiratory rate 20, temperature 97.6, and O2 sat 96%. GENERAL: Awake, alert, comfortable, not in distress. SKIN: Adequate turgor. HEENT: Pinkish conjunctivae. Anicteric sclerae. NECK: No neck mass. No carotid bruits. No JVD. CHEST: No deformities. LUNGS: Clear breath sounds. HEART: Normal sinus rhythm. No murmur. No gallops. No rubs. ABDOMEN: Globular, soft, and nontender. No masses. EXTREMITIES: Bilateral leg amputations. MEDICATIONS: Medications of November 27, 2019, were reviewed. LABORATORY DATA: November 26, 2019; white count 12.8, hemoglobin 11.4, sodium 135, potassium 4.9, chloride 99, carbon dioxide 24, BUN 53, creatinine 6.89, and albumin 2.6. ASSESSMENT AND PLAN: 1. End-stage renal disease, stable. Continue current hemodialysis regimen on Saturday, Saturday and Saturday. Tolerating said treatment. Fluid removal about 2.5 L will be done today. 2. Status post right kipli-lil-ofaz amputation, doing well. 3. Sepsis, resolved. Job ID: [id number]
[2019-11-27] MEDS: Morphine 2 MG/ML SYRINGE SLOW IVP PRN (09:56)
[2019-11-27 10:12] LABS: Anion Gap 16 mmol/L (10-20); BUN (Urea Nitrogen) 47 mg/dL (8.4-25.7); Calc. Creatinine Clearance 14 mL/min (70-130); Calcium 9.4 mg/dL (7.8-10.44); Carbon Dioxide 26 mmol/L (23-31); Chloride 98 mmol/L (98-107); Estimated GFR-MDRD 11; Glucose 84 mg/dL (80-115); Potassium 3.8 mmol/L (3.5-5.1); Sodium 136 mmol/L (136-145)
--- NOTE | 2019-11-27 10:52 | PDOC.HOSPP ---
- Subjective Encounter Date: 11/27/19 Encounter Time: 07:30 Subjective: Patient seen and examined. No new complaints. No overnight events - Objective Vital Signs & Weight: Vital Signs (12 hours) Temp Pulse Resp BP Pulse Ox 11/27/19 07:05 97.6 F 69 20 122/65 96 11/27/19 04:00 97.7 F 72 23 H 113/72 94 L Weight Admit Weight 188 lb Weight 188 lb 6.4 oz Most Recent Monitor Data Heart Rate from ECG 74 NIBP 88/52 NIBP BP-Mean 64 Respiration from ECG 12 SpO2 97 I&O: 11/26/19 11/27/19 11/28/19 06:59 06:59 06:59 Intake Total 749 1102.4 Output Total 600 Balance 149 1102.4 Result Diagrams: 11/26/19 04:30 11/27/19 08:06 EKG Reviewed by me: Yes Hospitalist ROS - Review of Systems ENT: denies: ear pain, ear discharge, nose pain, nose discharge, nose congestion , mouth pain, mouth swelling, throat pain, throat swelling, other Respiratory: denies: cough, dry, shortness of breath, hemoptysis, SOB with excertion, pleuritic pain, sputum, wheezing, other Cardiovascular: denies: chest pain, palpitations, orthopnea, paroxysmal noc. dyspnea, edema, light headedness, other Gastrointestinal: denies: nausea, vomiting, abdominal pain, diarrhea, constipation, melena, hematochezia, other Genitourinary: denies: dysuria, frequency, incontinence, hematuria, retention, other - Medication Medications: Active Medications Generic Name Dose Route Start Last Admin Trade Name Freq PRN Reason Stop Dose Admin Hydrocodone Bitart/Acetaminophen 2 tab 11/22/19 21:19 11/26/19 17:20 [place] 5/325 PO 2 tab Q4H PRN Administration Severe Pain (7-10) Amiodarone HCl 200 mg 11/23/19 09:00 11/26/19 09:17 Cordarone PO 200 mg DAILY MYNOR Administration Aspirin 81 mg 11/23/19 09:00 11/26/19 09:18 Aspirin Chewable PO 81 mg QAM MYNOR Administration Atorvastatin Calcium 40 mg 11/23/19 21:00 11/26/19 20:36 Lipitor PO 40 mg HS MYNOR Administration Duloxetine HCl 30 mg 11/23/19 09:00 11/26/19 09:18 Cymbalta PO 30 mg DAILY MYNOR Administration Amiodarone HCl 450 mg/ 259 mls @ 0 mls/hr 11/25/19 11:30 11/27/19 08:20 Miscellaneous Medication 1 IVPB 259 mls each/ Dextrose/Water INF MYNOR Administration Protocol As Directed Morphine Sulfate 2 mg 11/26/19 19:11 11/27/19 09:56 Morphine SLOW IVP 2 mg Q4H PRN Administration Pain Sevelamer Carbonate 2,400 mg 11/23/19 12:00 11/27/19 07:56 Renvela PO Not Given TID-WM MYNOR - Exam General Appearance: NAD, awake alert Eye: PERRL, anicteric sclera ENT: normocephalic atraumatic, no oropharyngeal lesions Neck: supple, symmetric, no JVD, no thyromegaly Heart: RRR, no murmur, no gallops Respiratory: CTAB, no wheezes, no rales, no ronchi Gastrointestinal: soft, non-tender, non-distended Extremities - other findings: left aka , right bka Skin: normal turgor, no lesions Neurological: no focal deficits Musculoskeletal: normal tone, normal strength Hosp A/P (1) Atrial fibrillation with RVR Code(s): I48.91 - UNSPECIFIED ATRIAL FIBRILLATION Status: Acute (2) Cellulitis Code(s): L03.90 - CELLULITIS, UNSPECIFIED Status: Resolved Qualifiers: Site of cellulitis: extremity Site of cellulitis of extremity: lower extremity Laterality: right Qualified Code(s): L03.115 - Cellulitis of right lower limb (3) ESRD (end stage renal disease) Code(s): N18.6 - END STAGE RENAL DISEASE Status: Acute (4) Gangrene Status: Resolved (5) Right above-knee amputee Code(s): Z89.611 - ACQUIRED ABSENCE OF RIGHT LEG ABOVE KNEE Status: Acute (6) Sepsis Code(s): A41.9 - SEPSIS, UNSPECIFIED ORGANISM Status: Acute Qualifiers: Sepsis type: sepsis due to unspecified organism Acute renal failure type: unspecified (7) Cardiomyopathy Code(s): I42.9 - CARDIOMYOPATHY, UNSPECIFIED Status: Chronic (8) Dyslipidemia Code(s): E78.5 - HYPERLIPIDEMIA, UNSPECIFIED Status: Chronic (9) Hypertension Code(s): I10 - ESSENTIAL (PRIMARY) HYPERTENSION Status: Chronic (10) Below-knee amputation of left lower extremity Code(s): S88.112A - COM[facility]TE [facility] [place] AND [place] LOW LEG, INIT Status: Chronic - Plan old records reviewed/req continue antibiotic as ordered continue HD as per nephrology will give digoxin one time dose for afib and consult cardiology will interogate his icd as he has icd firing post operative care as per surgeon medication reviewed symptomatic treatment post operatively stable amiodaron drip started by cardiology 11/26/19 agree with dc antibiotic continue amiodaron chronic anticoagulation will defer to cardiology continue PT expecting discharge soon 11/27/19 continue amiodaron as per cardiology start PT today discharge planning
[2019-11-27] MEDS: Amiodarone 200 MG TAB PO SCH ×2 (11:24→21:22)
[2019-11-27] MEDS ORDERED: Amiodarone 200 MG TAB PO SCH (11:30)
[2019-11-27] MEDS: Aspirin Chewable 81 MG TAB PO SCH (12:17)
[2019-11-27] MEDS: DULoxetine 30 MG CAP PO SCH (12:17)
--- NOTE | 2019-11-27 14:47 | EKG ---
Test Reason : PREOP Blood Pressure : / mmHG Vent. Rate : 095 BPM Atrial Rate : 095 BPM P-R Int : 130 ms QRS Dur : 144 ms QT Int : 422 ms P-R-T Axes : 065 -21 149 degrees QTc Int : 530 ms Electronic ventricular pacemaker When compared with ECG of 22-NOV-2019 19:18, (Unconfirmed) Vent. rate has decreased BY [address] Jennifer JORDAN ([id number]) on 11/23/2019 2:20:22 PM Referred By: AFUA Confirmed By:DR. Jennifer JORDAN
[2019-11-27] MEDS: HYDROcodone/Acetaminophen 5/325 mg Tablet PO PRN ×2 (18:04→23:01)
[2019-11-27] MEDS: Atorvastatin Calcium 40 MG TAB PO SCH (21:22)
[2019-11-27] MEDS: Apixaban 5 MG TAB PO SCH (21:23)
--- NOTE | 2019-11-28 08:11 | PDOC.CPN ---
- Subjective Date: 11/28/19 Time: 09:00 Interval history: Mr. Valencia is awake. Denies any cardiac complaints or concerns. Only complaints is right AKA discomfort. Possible discharge to rehab today. No overnight events on telemetry. - Review of Systems General: denies: fever/chills, weight/appetite/sleep changes, night sweats, fatigue Respiratory: denies: cough, congestion, shortness of breath, exercise intolerance Cardiovascular: denies: chest pain, palpitation, edema, paroxysmal nocturnal dyspnea, orthopnea Gastrointestinal: denies: nausea, vomiting, diarrhea, constipation, abd pain, GI bleeding Musculoskeletal: reports: pain (right AKA discomfort) Neurological: denies: numbness, syncope, seizure, weakness - Objective Allergies/Adverse Reactions: Allergies Allergy/AdvReac Type Severity Reaction Status Date / Time No Known Allergies Allergy Verified 11/22/19 22:45 Visit Medications: Current Medications Hydrocodone Bitart/Acetaminophen ([place] 5/325) 1 tab PO Q4H PRN PRN Reason: Moderate Pain (4-6) Hydrocodone Bitart/Acetaminophen ([place] 5/325) 2 tab PO Q4H PRN PRN Reason: Severe Pain (7-10) Last Admin: 11/27/19 23:01 Dose: 2 tab Amiodarone HCl (Cordarone) 400 mg PO BID [facility] Last Admin: 11/27/19 21:22 Dose: 400 mg Apixaban (Eliquis) 5 mg PO BID [facility] Last Admin: 11/27/19 21:23 Dose: 5 mg Artificial Tears (Tears Naturale) 2 drop EA EYE PRN PRN PRN Reason: Dry Eyes Aspirin (Aspirin Chewable) 81 mg PO QAM [facility] Last Admin: 11/27/19 12:17 Dose: 81 mg Atorvastatin Calcium (Lipitor) 40 mg PO HS [facility] Last Admin: 11/27/19 21:22 Dose: 40 mg Bacitracin Zinc (Bacitracin Zinc Ointment 30 Gm) 0 gm TOP PRN PRN PRN Reason: .DRESSING CHANGES Bisacodyl (Dulcolax) 10 mg NC DAILYPRN PRN PRN Reason: Constipation Calcium Carbonate (Tums) 1,000 mg PO Q4H PRN PRN Reason: Heartburn or Indigestion Duloxetine HCl (Cymbalta) 30 mg PO DAILY [facility] Last Admin: 11/27/19 12:17 Dose: 30 mg Guaifenesin (Robitussin Sf) 200 mg PO Q4H PRN PRN Reason: Cough Labetalol HCl (Normodyne) 20 mg SLOW IVP Q4H PRN PRN Reason: SBP > 180 and HR >/= 70 Loperamide HCl (Imodium) 2 mg PO PRN PRN PRN Reason: Diarrhea/Loose Stools Loratadine (Claritin) 10 mg PO DAILYPRN PRN PRN Reason: Sinus Symptoms Metoclopramide HCl (Reglan) 5 mg IVP Q6H PRN PRN Reason: Nausea/Vomiting Senna/Docusate Sodium (Senokot S) 2 tab PO BID PRN PRN Reason: Constipation Sevelamer Carbonate (Renvela) 2,400 mg PO TID-[facility] Last Admin: 11/27/19 17:55 Dose: 2,400 mg Sodium Chloride ([facility] [place] 0.65%) 0 ml EA NARE QIDPRN PRN PRN Reason: Nasal Congestion Throat Lozenges (Cepastat Lozenges) 1 eliza PO Q2H PRN PRN Reason: Sore Throat Vital Signs & Weight: Vital Signs Temp Pulse Resp BP Pulse Ox 11/28/19 03:49 97.8 F 85 16 134/60 98 11/28/19 02:06 98 Admit Weight 188 lb Weight 188 lb 6.4 oz - CHADS-VASc Congestive heart failure: 1 Hypertension: 1 Age 65-74: 1 Vascular disease: 1 Risk Score: 4 - Quality Measures Condition: Atrial Fibrillation/Flutter (hx or current), Coronary Artery Disease , Heart Failure CV meds: Beta Chantel: No, RAFAEL/ARB: No, Statin: Yes, ASA: Yes, Plavix/Effient/ Brilinta: No, Anticoagulant: Yes - Medication Contraindications No RAFAEL/ARB reason: Medical contraindication - Physical Exam General: alert & oriented x3, appears well, no apparent distress HEENT: mucus membranes moist Neck: supple neck, no JVD/HJR Cardiac: regular rate and rhythm, no murmur, S1/S2 Lungs: clear to auscultation, normal breath sounds Neuro: grossly intact Abdomen: active bowel sounds, soft, non-tender Extremities: other: (left BKA, right AKA) Skin: clear Musculoskeletal: other (incisional pain to RLE) - Labs Result Diagrams: 11/26/19 04:30 11/27/19 08:06 - Telemetry Sinus rhythms and dysrhythmias: other (A Sensed, V Paced) - Assessment/Plan Assessment/Plan: Assessment: 1. Sepsis 2. Paroxysmal AFib-continue NOAC, amiodarone loading 3. 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 Gangrene-S/P right AKA, left AKA 5. ESRD-M/W/F HD Plan: Okay to discharge to rehab once placement verified. Continue amiodarone loading, 400mg BID for 2 weeks total, then 200mg BID. Follow-up with Dr. Reza's office in 3 weeks.
[2019-11-28] MEDS: Sevelamer Carbonate 800 MG TAB PO SCH ×3 (08:20→17:42)
[2019-11-28] MEDS: DULoxetine 30 MG CAP PO SCH (08:20)
[2019-11-28] MEDS: Aspirin Chewable 81 MG TAB PO SCH (08:20)
[2019-11-28] MEDS: Amiodarone 200 MG TAB PO SCH (08:20)
[2019-11-28] MEDS: Apixaban 5 MG TAB PO SCH (08:20)
[2019-11-28] MEDS: HYDROcodone/Acetaminophen 5/325 mg Tablet PO PRN ×2 (08:40→13:50)
--- NOTE | 2019-11-28 09:34 | PDOC.HOSPP ---
- Subjective Encounter Date: 11/28/19 Encounter Time: 07:40 Subjective: Patient seen and examined. No new complaints. No overnight events - Objective Vital Signs & Weight: Vital Signs (12 hours) Temp Pulse Resp BP Pulse Ox 11/28/19 08:15 95 11/28/19 08:11 97.7 F 78 20 124/58 L 95 11/28/19 03:49 97.8 F 85 16 134/60 98 11/28/19 02:06 98 Weight Admit Weight 188 lb Weight 188 lb 6.4 oz Most Recent Monitor Data Heart Rate from ECG 74 NIBP 88/52 NIBP BP-Mean 64 Respiration from ECG 12 SpO2 97 I&O: 11/27/19 11/28/19 11/29/19 06:59 06:59 06:59 Intake Total 1102.4 633.5 Balance 1102.4 633.5 Result Diagrams: 11/26/19 04:30 11/27/19 08:06 EKG Reviewed by me: Yes Hospitalist ROS - Review of Systems ENT: denies: ear pain, ear discharge, nose pain, nose discharge, nose congestion , mouth pain, mouth swelling, throat pain, throat swelling, other Respiratory: denies: cough, dry, shortness of breath, hemoptysis, SOB with excertion, pleuritic pain, sputum, wheezing, other Cardiovascular: denies: chest pain, palpitations, orthopnea, paroxysmal noc. dyspnea, edema, light headedness, other Gastrointestinal: denies: nausea, vomiting, abdominal pain, diarrhea, constipation, melena, hematochezia, other Genitourinary: denies: dysuria, frequency, incontinence, hematuria, retention, other - Medication Medications: Active Medications Generic Name Dose Route Start Last Admin Trade Name Freq PRN Reason Stop Dose Admin Hydrocodone Bitart/Acetaminophen 2 tab 11/22/19 21:19 11/28/19 08:40 [place] 5/325 PO 2 tab Q4H PRN Administration Severe Pain (7-10) Amiodarone HCl 400 mg 11/27/19 21:00 11/28/19 08:20 Cordarone PO 400 mg BID MYNOR Administration Apixaban 5 mg 11/27/19 21:00 11/28/19 08:20 Eliquis PO 5 mg BID MYNOR Administration Aspirin 81 mg 11/23/19 09:00 11/28/19 08:20 Aspirin Chewable PO 81 mg QAM MYNOR Administration Atorvastatin Calcium 40 mg 11/23/19 21:00 11/27/19 21:22 Lipitor PO 40 mg HS MYNOR Administration Duloxetine HCl 30 mg 11/23/19 09:00 11/28/19 08:20 Cymbalta PO 30 mg DAILY MYNOR Administration Sevelamer Carbonate 2,400 mg 11/23/19 12:00 11/28/19 08:20 Renvela PO 2,400 mg TID-WM MYNOR Administration - Exam General Appearance: NAD, awake alert Eye: PERRL, anicteric sclera ENT: normocephalic atraumatic, no oropharyngeal lesions Neck: supple, symmetric, no JVD, no thyromegaly Heart: no murmur, irregular Respiratory: CTAB, no wheezes, no rales, no ronchi Gastrointestinal: soft, non-tender, non-distended, normal bowel sounds Extremities - other findings: right aka, left bka Skin: normal turgor, no lesions Neurological: no focal deficits Musculoskeletal: normal tone, normal strength Psychiatric: normal affect, normal behavior Hosp A/P (1) Atrial fibrillation with RVR Code(s): I48.91 - UNSPECIFIED ATRIAL FIBRILLATION Status: Acute (2) Cellulitis Code(s): L03.90 - CELLULITIS, UNSPECIFIED Status: Resolved Qualifiers: Site of cellulitis: extremity Site of cellulitis of extremity: lower extremity Laterality: right Qualified Code(s): L03.115 - Cellulitis of right lower limb (3) ESRD (end stage renal disease) Code(s): N18.6 - END STAGE RENAL DISEASE Status: Acute (4) Gangrene Status: Resolved (5) Right above-knee amputee Code(s): Z89.611 - ACQUIRED ABSENCE OF RIGHT LEG ABOVE KNEE Status: Acute (6) Sepsis Code(s): A41.9 - SEPSIS, UNSPECIFIED ORGANISM Status: Acute Qualifiers: Sepsis type: sepsis due to unspecified organism Acute renal failure type: unspecified (7) Cardiomyopathy Code(s): I42.9 - CARDIOMYOPATHY, UNSPECIFIED Status: Chronic (8) Dyslipidemia Code(s): E78.5 - HYPERLIPIDEMIA, UNSPECIFIED Status: Chronic (9) Hypertension Code(s): I10 - ESSENTIAL (PRIMARY) HYPERTENSION Status: Chronic (10) Below-knee amputation of left lower extremity Code(s): S88.112A - COMPLETE TRAUM AMP AT LEV [place] KN AND Quynh BARKER LOW LEG, INIT Status: Chronic - Plan old records reviewed/req continue antibiotic as ordered continue HD as per nephrology will give digoxin one time dose for afib and consult cardiology will interogate his icd as he has icd firing post operative care as per surgeon medication reviewed symptomatic treatment post operatively stable amiodaron drip started by cardiology 11/26/19 agree with dc antibiotic continue amiodaron chronic anticoagulation will defer to cardiology continue PT expecting discharge soon 11/27/19 continue amiodaron as per cardiology start PT today discharge planning 11/28/19 once rehab approval arranged, will consider discharge medication reviewed supportive care
--- NOTE | 2019-11-28 10:02 | PRG ---
DATE OF SERVICE: 11/28/2019 SUBJECTIVE: Mr. Valencia is a 64-year-old black male with ESRD-on maintenance hemodialysis. We are following him up for his management of his ESRD. He underwent hemodialysis yesterday. We had to give heparin due to the blood lines were somewhat clotting. No other complaints today except for postop pain. No complaints of chest pain or shortness of breath. OBJECTIVE: VITAL SIGNS: Blood pressure 124/58, heart rate 78, respiratory rate 20, temperature 97.7, O2 saturation 95% on room air. GENERAL: Awake, alert, comfortable, not in distress. SKIN: Adequate turgor. HEENT: He has pinkish conjunctivae. Anicteric sclerae. No neck mass. No carotid bruits. No JVD. CHEST: No deformities. LUNGS: Clear breath sounds. HEART: Normal sinus rhythm. No murmurs. No gallops. No rubs. ABDOMEN: Globular, soft, nontender. No masses. EXTREMITIES: Bilateral leg amputation. MEDICATIONS: Medications of November 28, 2019, reviewed. LABORATORY DATA: Laboratories of November 26, 2019; white count 12.8, hemoglobin 11.4. On November 27, 2019; potassium 3.8, BUN 47, creatinine 6.23. ASSESSMENT AND PLAN: 1. Status post right below knee amputation/sepsis - clinically much improved. The patient tolerated the said surgery. Continue supportive care. 2. End-stage renal disease, stable. We will continue current Saturday, Saturday, and Saturday hemodialysis. He is tolerating said treatment, fluid removal only as tolerated. 3. Borderline anemia. We will restart Epogen with this patient. Recheck CBC and basic metabolic in a.m. Job ID: [id number]
--- NOTE | 2019-11-28 13:03 | EKG ---
Test Reason : Blood Pressure : / mmHG Vent. Rate : 100 BPM Atrial Rate : 100 BPM P-R Int : 124 ms QRS Dur : 142 ms QT Int : 392 ms P-R-T Axes : 066 -35 132 degrees QTc Int : 505 ms Atrial-sensed ventricular-paced rhythm Abnormal ECG Confirmed by PIPPA BROUSSARD DO ([id number]), senior cost analyst DARIELA PERALTA ([id number]) on 11/28/2019 1:02:55 PM Referred By: Confirmed By:PIPPA BROUSSARD DO
--- NOTE | 2019-11-28 15:18 | DIS ---
DATE OF ADMISSION: 11/22/2019 DATE OF DISCHARGE: 11/28/2019 PRIMARY CARE PHYSICIAN: Doreen Alvarez MD. DISCHARGE DISPOSITION: Rehab. PRIMARY DISCHARGE DIAGNOSES: 1. Right lower extremity cellulitis with gangrene and sepsis. 2. Status post right above-knee amputation. 3. Atrial fibrillation with rapid ventricular response. SECONDARY DISCHARGE DIAGNOSES: 1. End-stage renal disease, on hemodialysis. 2. Chronic cardiomyopathy. 3. Hypertension. 4. Dyslipidemia. 5. Anemia of renal disease. 6. Secondary hyperparathyroidism of renal origin. PRIMARY PROCEDURE/OPERATION: Maintenance hemodialysis, right above-knee amputation by Dr. Anderson. RADIOLOGICAL INVESTIGATION: Chest x-ray. SIGNIFICANT LABORATORY DATA: WBC 12.8, hemoglobin 11.4, and platelets 240. Sodium 136, creatinine 6.23. LFTs normal. Urinalysis, suggestive of UTI. Hepatitis B surface antigen negative. Blood culture and urine culture negative. DISCHARGE MEDICATIONS: 1. Amiodarone as directed 400 mg twice daily for one week, then 200 mg twice daily for one week, and then 200 mg daily. 2. Lipitor 40 mg at bedtime. 3. Renvela 2400 mg p.o. t.i.d. 4. Eliquis 5 mg p.o. b.i.d. 5. Aspirin 81 mg daily. 6. Coreg 6.25 mg b.i.d. 7. Celecoxib 200 mg daily. 8. Cymbalta 30 mg daily. 9. Fish oil one tablet daily. 10. [place] 10/325 one or two tablets q.4 hourly p.r.n. CONTRAINDICATIONS: None. CODE STATUS: Full code. INPATIENT CONSULT: 1. Dr. Mae was doing maintenance hemodialysis. 2. Dr. Anderson did amputation. 3. Dr. Fisher was following in ICU. TEST RESULTS PENDING ON DISCHARGE: None. ALLERGIES: NO KNOWN DRUG ALLERGIES. DISCHARGE PLAN: Posthospital, the patient has appointment with Dr. Anderson in 2 to 3 weeks. The patient will follow up with Dr. Reza in 2 to 3 weeks. The patient will follow up with primary care physician in 1 week. HOSPITAL COURSE: A 64-year-old male with above-mentioned medical problem, who was admitted in hospital on November 22, [address] Renteria. Please see his H and P for further details. The patient was admitted for sepsis and cellulitis with gangrenous changes in the right lower extremity. The patient was altered on admission. He was having encephalopathy due to sepsis. The patient was having sepsis with acute organ dysfunction. The patient was treated with broad-spectrum antibiotic therapy. He was given vancomycin and cefepime. Subsequently, Dr. Anderson was consulted, and he recommended the above-knee amputation. After above-knee amputation, the patient 's sepsis resolved. The patient was followed by Nephrology for maintenance hemodialysis. The patient was admitted in ICU after above-knee amputation and subsequently, he did well. The patient developed atrial fibrillation with RVR and that is why Cardiology was consulted, and the patient was treated with amiodarone drip. The patient's rate was under control. The patient has right above-knee amputation and left below-knee amputation and he was needing a rehabilitation and that is why with the help of correctional counselor/case manager, we arranged rehab. rehab transfer is done. The patient is overall medically stable for discharge. The patient was seen and examined at bedside today. Please see my progress note from today for further detail. Job ID: [id number] MTDD
[2019-11-28 15:28] VITALS: BP 142/85; TEMP 97.6
--- NOTE | 2019-12-01 06:56 | PQF ---
AMADOR,KATHLEEN MONK MD [id number] [facility]-254 [id number] CLINICAL DOCUMENTATION CLARIFICATION FORM: POST DISCHARGE Addendum to original discharge summary date: ____ Late entry note date: __ DATE: 12/01/2019 ATTN:Kathleen Barnes Please exercise your independent, professional judgment in responding to the clarification form. Clinical indicators are provided on the bottom of this form for your review Please check appropriate box(s): [ ] Sepsis as a complication of recent right leg stent placement [x ] Sepsis not a complication of recent right leg stent placement [ ] Other diagnosis [ ] Unable to determine CLINICAL INDICATORS - SIGNS / SYMPTOMS / LABS 11/21 "presents with sepsis secondary to wet gangrene of foot" HP 11/21 "recent stent placement on the right leg" 11/21 "CC: fever and AMS" ED Notes 11/21 "right foot wound" Consult 11/22 "10/26/2019 performed an arteriogram to evaluate leg due to gangrene" Consult 11/22 "he then developed fever 101" Consult 11/22 "he has gangrene with purulent discharge" Consult 11/22 "sloughing skin" Labs WBC: 11/21=24.9 11/24=18.3 11/25=12.8 RISK FACTORS 64 years old male- 11/21 PVD- 11/21 ESRD- 11/21 CHF- 11/21 HLD- 11/21 s/p leg stent placement- 11/21 Former Smoker- 11/21 Wheelchair bound- 11/21 Cellulits of leg- 11/21 Gangrene-PN 11/22 TREATMENT: Foot Xray-Collected 11/21 Right AKA-OP Note 11/22 Maxipime 2gm IV-AUG 13 Vancomycin 1.5gram IV-AUG 13 (This form is maintained as a part of the permanent medical record) 2014 [employer] All Rights Reserved [email or web address]
== END 2019-11-28 17:40 | DRG 853 ==
LOC: ERS 19:07 → T4-A 23:09 → CCU 11-23 18:00 → 2NO 11-25 19:07
PROVIDERS: ADMIT Internal Medicine; ATTEND Internal Medicine
PROC: 0Y6C0Z1 Detachment at Right Upper Leg, High, Open Approach (ICD-10-PCS; principal; 2019-11-23)
PROC: 5A1935Z Respiratory Ventilation, Less than 24 Consecutive Hours (ICD-10-PCS; 2019-11-23)
PROC: 5A1D70Z Performance of Urinary Filtration, Intermittent, Less than 6 Hours Per Day (ICD-10-PCS; 2019-11-24)
DX: A41.9 Sepsis, unspecified organism (principal); N18.6 End stage renal disease; J96.00 Acute respiratory failure, unspecified whether with hypoxia or hypercapnia; G93.41 Metabolic encephalopathy; I70.269 Atherosclerosis of native arteries of extremities with gangrene, unspecified extremity; I13.2 Hypertensive heart and chronic kidney disease with heart failure and with stage 5 chronic kidney disease, or end stage renal disease; I50.22 Chronic systolic (congestive) heart failure; L03.115 Cellulitis of right lower limb; N25.81 Secondary hyperparathyroidism of renal origin; N39.0 Urinary tract infection, site not specified; I25.10 Atherosclerotic heart disease of native coronary artery without angina pectoris; E78.5 Hyperlipidemia, unspecified; E78.00 Pure hypercholesterolemia, unspecified; I25.5 Ischemic cardiomyopathy; G89.29 Other chronic pain; I48.0 Paroxysmal atrial fibrillation; R65.20 Severe sepsis without septic shock; D63.1 Anemia in chronic kidney disease; Z99.2 Dependence on renal dialysis; Z95.810 Presence of automatic (implantable) cardiac defibrillator; Z89.519 Acquired absence of unspecified leg below knee; Z87.891 Personal history of nicotine dependence; Z99.3 Dependence on wheelchair; Z89.411 Acquired absence of right great toe; Z79.01 Long term (current) use of anticoagulants; Z79.82 Long term (current) use of aspirin; Z91.14 Patient's other noncompliance with medication regimen
CPT/HCPCS: 36415; 51701; 71045; 80048; 80053; 80202; 81003; 81015; 82805; 83605; 83735; 85025; 85652; 86850; 86900; 86901; 87040; 87086; 87340; 88307; 88311; 90935; 93005; 93010; 94002; 94003; 94760; 96361; 96365; 96366; C9132; G0257; J0282; J0692; J1100; J1160; J2001; J2270; J2370; J2405; J2704; J3010; J3370; J3490; J7050; J7070; P9047

== ENCOUNTER 2020-08-01 07:45 | Outpatient (CLI) | payer MEDICARE, BC ==
--- NOTE | 2020-08-01 10:01 | CT ---
CT ABDOMEN AND PELVIS WITH AND WITHOUT IV CONTRAST: Date: 08/01/2020 HISTORY: Hematuria. COMPARISON: 03/24/2018. FINDINGS: Mild chronic changes of the lung bases are again seen. The liver, spleen, pancreas, and adrenal gland s are normal. No calcified gallstones are seen. Changes of polycystic kidney disease are again seen bilaterally. No enhancing masses are seen on the postcontrast images. Delayed images demonstrate no contrast in the renal collecting systems, ureters, or the urinary bladder. No calculi seen in the kidneys, ureters, or urinary bladder. No hydrouretero nephrosis seen on either side. There are vascular calcifications without evidence of aneurysmal dilatation of the abdominal aorta. N o free air, free fluid, or lymphadenopathy seen in the abdomen or pelvis. There are degenerative paul ges in the spine. The infrarenal abdominal aorta measures 2.8 cm and is stable. 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 There is colonic diverticulosis. IMPRESSION: 1. Polycystic kidney disease without evidence of enhancing mass or urinary tract obstruction. 2. Limited evaluation for urothelial abnormality due to lack of contrast on the delayed images withi n the renal collecting systems, ureters, or the urinary bladder, likely due to patient's poor kidney function. POS: OFF
[2020-08-01] MEDS ORDERED: Iopamidol 370 76% 100 ML VIAL ONE (11:07)
== END 2020-08-01 07:46 | disposition home or self-care (01) ==
LOC: CT 07:45
PROVIDERS: ATTEND Urology
DX: R31.0 Gross hematuria (principal); Q61.3 Polycystic kidney, unspecified
CPT/HCPCS: 74178; Q9967

== ENCOUNTER 2020-09-27 08:40 | Outpatient (CLI) | payer MEDICARE, BC | END 2020-09-27 08:41 | disposition home or self-care (01) | LOC: BICRAD 08:40 | PROVIDERS: ATTEND Nurse Practitioner Family | DX: I48.0 Paroxysmal atrial fibrillation (principal) | CPT/HCPCS: 71046 ==

== ENCOUNTER 2021-01-31 16:14 | Outpatient (CLI) | payer MEDICARE, BC ==
[2021-01-31 18:30] LABS: Anion Gap 22 mmol/L (10-20); BUN (Urea Nitrogen) 68 mg/dL (8.4-25.7); Calc. Creatinine Clearance 0 mL/min (70-130); Calcium 9.8 mg/dL (7.8-10.44); Carbon Dioxide 25 mmol/L (23-31); Chloride 101 mmol/L (98-107); Glucose 90 mg/dL (80-115); Potassium 4.4 mmol/L (3.5-5.1); Sodium 144 mmol/L (136-145)
[2021-01-31 19:07] LABS: #Basophils 0.1 10x3/uL (0.0-0.2); #Eosinphils 0.2 10x3/uL (0.0-0.5); #Monocytes 0.6 10x3/uL (0.0-1.1); #Neutrophils 2.9 10x3/uL (1.5-8.4); %Eosinophils 3.8 % (0.0-6.0); %Lymphocytes 28.4 % (18.0-47.0); %Monocytes 11.3 % (0.0-10.0); %Neutrophils 55.3 % (40.0-75.0); Hemoglobin 12.8 g/dL (13.5-17.5); Mean Corpuscular HGB CONC 32.7 g/dL (32.0-36.0); Mean Corpuscular Volume 94.9 fl (81.2-95.1); Mean Platelet Volume 11.4 fl (7.4-10.4); Platelet Count 168 10x3/uL (150-450); RBC Distribution Width 15.5 % (11.5-14.5); Red Blood Cell (RBC) Count 4.13 10x6/uL (4.32-5.72); White Blood Cell (WBC) Count 5.2 10x3/uL (3.5-10.5)
[2021-02-01 07:50] LABS: SARS-CoV-2 PCR by NAA Not Detected (NotDetected)
== END 2021-01-31 16:15 | disposition home or self-care (01) ==
LOC: LABBT 16:14
PROVIDERS: ATTEND Surgery
DX: Z01.818 Encounter for other preprocedural examination (principal); N18.6 End stage renal disease; Z20.822 Contact with and (suspected) exposure to COVID-19
CPT/HCPCS: 80048; 85025; 93005; U0003; U0005; 93010

== ENCOUNTER 2021-02-02 07:53 | Day surgery (SDC) | payer MEDICARE, BC ==
[2021-02-01 13:22] VITALS: BMI 25.9
[2021-02-02] MEDS ORDERED: Protamine Sulfate 50 MG/5 ML VIAL ONE (08:04)
[2021-02-02] MEDS ORDERED: Bupivacaine 0.25% HCL 30 ML VIAL ONE (08:04)
[2021-02-02] MEDS ORDERED: Lidocaine 2% PF 5 ML VIAL ONE (08:04)
[2021-02-02] MEDS ORDERED: EPINEPHrine 1 MG/ML AMP ONE (08:04)
[2021-02-02] MEDS ORDERED: Heparin 5,000 UNITS/ML VIAL ONE (08:04)
[2021-02-02] MEDS ORDERED: Acetaminophen 500 MG TAB ONE (08:59)
[2021-02-02] MEDS ORDERED: Midazolam HCl 2 mg/2 ml Vial ONE (09:30)
[2021-02-02] MEDS ORDERED: Famotidine/PF 20 mg/2ml Vial ONE (09:30)
[2021-02-02] MEDS ORDERED: Fentanyl 100 MCG/2 ML VIAL ONE (09:30)
[2021-02-02] MEDS ORDERED: Propofol 500 MG/50 ML VIAL ONE (09:30)
[2021-02-02] MEDS ORDERED: Bupivacaine HCl 0.5%/Epinephrine 1:200,000/PF 30 ml Vial ONE (09:30)
== END 2021-02-02 12:17 | disposition home or self-care (01) ==
LOC: SDC 07:53
PROVIDERS: ATTEND Surgery
PROC: 0HWPX7Z Revision of Autologous Tissue Substitute in Skin, External Approach (ICD-10-PCS; principal; 2021-02-02)
DX: T82.898A Other specified complication of vascular prosthetic devices, implants and grafts, initial encounter (principal); I13.2 Hypertensive heart and chronic kidney disease with heart failure and with stage 5 chronic kidney disease, or end stage renal disease; N18.6 End stage renal disease; I50.9 Heart failure, unspecified; M10.9 Gout, unspecified; I25.10 Atherosclerotic heart disease of native coronary artery without angina pectoris; I25.5 Ischemic cardiomyopathy; K21.9 Gastro-esophageal reflux disease without esophagitis; F17.220 Nicotine dependence, chewing tobacco, uncomplicated; E78.00 Pure hypercholesterolemia, unspecified; I73.9 Peripheral vascular disease, unspecified; Z79.01 Long term (current) use of anticoagulants; Z79.82 Long term (current) use of aspirin; Z79.899 Other long term (current) drug therapy; Z95.810 Presence of automatic (implantable) cardiac defibrillator; Z89.512 Acquired absence of left leg below knee; Z89.611 Acquired absence of right leg above knee; Z99.2 Dependence on renal dialysis
CPT/HCPCS: J0171; J0690; J1644; J2001; J2250; J2704; J2720; J3010; S0020; S0028

== ENCOUNTER 2021-12-24 01:05 | Inpatient (IN) | payer MEDICARE, BC ==
[2021-12-24 03:44] LABS: ALT (SGPT) 59 U/L (8-55); AST (SGOT) 65 U/L (5-34); Albumin 3.3 g/dL (3.4-4.8); Alkaline Phosphatase 76 U/L (40-110); Anion Gap 27 mmol/L (10-20); BUN (Urea Nitrogen) 50 mg/dL (8.4-25.7); Bilirubin, Total 1.6 mg/dL (0.2-1.2); CK (CPK) 529 U/L (30-200); Calc. Creatinine Clearance 0 mL/min (70-130); Calcium 9.6 mg/dL (7.8-10.44); Carbon Dioxide 20 mmol/L (23-31); Chloride 89 mmol/L (98-107); Estimated GFR 5; Glucose 105 mg/dL (80-115); Protein, Total 6.3 g/dL (5.8-8.1); Sodium 132 mmol/L (136-145)
[2021-12-24 03:52] LABS: Hemoglobin 13.7 g/dL (14.0-18.0); Mean Corpuscular HGB CONC 32.1 g/dL (32.0-36.0); Mean Corpuscular Hemoglobin 32.4 pg (27.0-31.0); Mean Platelet Volume 11.9 fL (7.4-10.4); Platelet Count 41 thou/uL (130-400); RBC Distribution Width 15.8 % (11.5-14.5); Red Blood Cell (RBC) Count 4.24 mill/uL (4.70-6.10); White Blood Cell (WBC) Count 11.7 thou/uL (4.8-10.8)
[2021-12-24 03:56] LABS: Band 7 % (5-11); Hypochromia SLIGHT = 6-15 cells (100X) (0-5/hpf); Lymphocytes 7 % (21-51); MDiff Complete? YES; Monocytes 9 % (0-10); Neutrophil 77 % (42-75); Platelet Morphology Comment Appears Decreased
[2021-12-24] MEDS ORDERED: Cefepime 2 GM VIAL ONE (04:46)
[2021-12-24] MEDS ORDERED: Acetaminophen 500 MG TAB ONE (05:35)
[2021-12-24] MEDS ORDERED: Aspirin Chewable 81 MG TAB ONE (05:35)
[2021-12-24] MEDS ORDERED: Vancomycin 1 GM in Premix Bag 1 BAG IVPB SCH ×3 (06:00→21:15)
[2021-12-24] MEDS ORDERED: Ondansetron PF 4 MG/2 ML Vial IVP PRN (06:00)
[2021-12-24] MEDS ORDERED: Ondansetron ODT 4 MG TAB SL PRN (06:00)
[2021-12-24] MEDS ORDERED: Vancomycin 1 GM/200 ML BAG ONE (06:14)
[2021-12-24 06:55] LABS: Troponin I 0.858 ng/mL (< 0.028)
[2021-12-24 09:47] LABS: Lactic Acid 1.6 mmol/L (0.5-2.2)
[2021-12-24 09:57] LABS: Troponin I 0.961 ng/mL (< 0.028)
[2021-12-24] MEDS ORDERED: HYDROcodone/Acetaminophen 10/325 mg Tablet PO PRN (10:43)
[2021-12-24] MEDS ORDERED: Polyethylene Glycol 3350 17 GM Packet PO PRN (10:53)
[2021-12-24] MEDS ORDERED: hydrALAZINE 20 MG/ML VIAL SLOW IVP PRN (10:54)
[2021-12-24] MEDS ORDERED: Glycerin Adult Supp. (24 ct jar) PR SCH (11:00)
[2021-12-24 11:01] LABS: SARS-CoV-2 NAA Rapid Test Not Detected (NotDetected)
[2021-12-24] MEDS ORDERED: HYDROcodone/Acetaminophen 10/325 mg Tablet ONE (11:14)
[2021-12-24] MEDS ORDERED: Cholecalciferol 1,000 UNITS (25 MCG) TAB PO SCH (11:15)
[2021-12-24] MEDS ORDERED: Ascorbic Acid 500 mg Chewable Tablet PO SCH (11:15)
[2021-12-24] MEDS ORDERED: Cholecalciferol 1,000 UNITS (25 MCG) TAB ONE (11:23)
[2021-12-24] MEDS ORDERED: Zinc Sulfate 220 MG CAP ONE (11:23)
[2021-12-24] MEDS ORDERED: Ascorbic Acid 500 mg Chewable Tablet ONE (11:23)
[2021-12-24] MEDS ORDERED: Zinc Sulfate 220 MG CAP PO SCH (11:30)
[2021-12-24] MEDS ORDERED: Vancomycin Diaylsis Sliding Scale (Wt 71-99) FS SCH (12:00)
[2021-12-24] MEDS ORDERED: Vancomycin HCl 500 MG in Sodium Chloride 0.9% 100 ML IVPB SCH (12:15)
[2021-12-24] MEDS: Lactated Ringer's 1,000 ML IV SCH (12:23)
[2021-12-24] MEDS: HYDROcodone/Acetaminophen 10/325 mg Tablet PO PRN ×2 (12:24→16:50)
[2021-12-24] MEDS: Sevelamer Carbonate 800 MG TAB PO SCH ×2 (16:34→16:50)
[2021-12-24 18:19] VITALS: BMI 34.3
[2021-12-24] MEDS ORDERED: Cefepime 2 GM in Sodium Chloride 0.9% 100 ML IVPB SCH (21:00)
[2021-12-24] MEDS ORDERED: Atorvastatin Calcium 40 MG TAB PO SCH (21:00)
[2021-12-24] MEDS: Amiodarone 200 MG TAB PO SCH (21:09)
[2021-12-24] MEDS: Famotidine 20 MG TAB PO SCH ×2 (21:10→21:20)
[2021-12-25] MEDS: Lactated Ringer's 1,000 ML IV SCH (01:40)
[2021-12-25 05:08] LABS: Anion Gap 26 mmol/L (10-20); BUN (Urea Nitrogen) 68 mg/dL (8.4-25.7); CK (CPK) 198 U/L (30-200); Calc. Creatinine Clearance 7 mL/min (70-130); Calcium 9.3 mg/dL (7.8-10.44); Carbon Dioxide 19 mmol/L (23-31); Chloride 91 mmol/L (98-107); Estimated GFR 5; Glucose 85 mg/dL (80-115); Potassium 4.4 mmol/L (3.5-5.1); Sodium 132 mmol/L (136-145)
[2021-12-25 07:42] LABS: Vancomycin, Trough 16.8 ug/mL
[2021-12-25] MEDS: Polyethylene Glycol 3350 17 GM Packet PO SCH (08:44)
[2021-12-25] MEDS: Sevelamer Carbonate 800 MG TAB PO SCH ×3 (08:44→18:16)
[2021-12-25] MEDS: Aspirin Chewable 81 MG TAB PO SCH (08:44)
[2021-12-25] MEDS: Ezetimibe 10 MG TAB PO SCH (08:45)
[2021-12-25] MEDS: Amiodarone 200 MG TAB PO SCH ×2 (08:45→20:41)
[2021-12-25] MEDS: Ascorbic Acid 500 mg Chewable Tablet PO SCH (08:45)
[2021-12-25] MEDS: Fish Oil 1,000 MG CAP PO SCH (08:45)
[2021-12-25] MEDS: Famotidine 20 MG TAB PO SCH (08:45)
[2021-12-25] MEDS: Dexamethasone 4 mg/ml Vial SLOW IVP SCH (08:46)
[2021-12-25] MEDS: Zinc Sulfate 220 MG CAP PO SCH (08:46)
[2021-12-25] MEDS: Cholecalciferol 1,000 UNITS (25 MCG) TAB PO SCH (08:46)
[2021-12-25] MEDS ORDERED: Dexamethasone 6 MG in Sodium Chloride 0.9% 50 ML IVPB SCH (09:00)
[2021-12-25 11:09] LABS: Band 14 % (5-11); Burr Cells MODERATE= 6-15 cells (100X) (0-1/hpf); Hemoglobin 10.9 g/dL (14.0-18.0); Lymphocytes 3 % (21-51); MDiff Complete? YES; Mean Corpuscular HGB CONC 31.1 g/dL (32.0-36.0); Mean Corpuscular Hemoglobin 30.9 pg (27.0-31.0); Mean Corpuscular Volume 99.2 fL (78.0-98.0); Mean Platelet Volume 11.9 fL (7.4-10.4); Monocytes 8 % (0-10); Neutrophil 74 % (42-75); Platelet Count 46 thou/uL (130-400); Platelet Morphology Comment Appears Decreased; Polychromasia SLIGHT = 2-3 cells (100X) (0-2/hpf); RBC Distribution Width 15.6 % (11.5-14.5); Reactive Lymphocytes 1 % (0-10); Red Blood Cell (RBC) Count 3.53 mill/uL (4.70-6.10); Vacuoles MODERATE; White Blood Cell (WBC) Count 10.3 thou/uL (4.8-10.8)
[2021-12-25] MEDS: Cefepime 0.5 GM in Sodium Chloride 0.9% 100 ML IVPB SCH (16:22)
[2021-12-25] MEDS ORDERED: Vancomycin HCl 500 MG in Sodium Chloride 0.9% 100 ML IVPB SCH (17:00)
[2021-12-26 05:14] LABS: MDiff Complete? YES; Mean Corpuscular HGB CONC 30.4 g/dL (32.0-36.0); Mean Platelet Volume 12.4 fL (7.4-10.4); Platelet Count 56 thou/uL (130-400); RBC Distribution Width 15.7 % (11.5-14.5); Red Blood Cell (RBC) Count 3.75 mill/uL (4.70-6.10); White Blood Cell (WBC) Count 13.1 thou/uL (4.8-10.8)
[2021-12-26 05:15] LABS: Anisocytosis SLIGHT = 6-15 cells (100X) (0-5/hpf); Band 1 % (5-11); Burr Cells SLIGHT = 2-5 cells (100X) (0-1/hpf); Hypochromia SLIGHT = 6-15 cells (100X) (0-5/hpf); Lymphocytes 8 % (21-51); Macrocytosis MODERATE=16-30 cells (100X) (0-5/hpf); Metamyelocyte 1 % (0-0); Monocytes 11 % (0-10); Neutrophil 78 % (42-75); Platelet Morphology Comment Appears Decreased; Polychromasia SLIGHT = 2-3 cells (100X) (0-2/hpf); Reactive Lymphocytes 1 % (0-10); Toxic Granulation SLIGHT
[2021-12-26] MEDS: Amiodarone 200 MG TAB PO SCH ×2 (08:39→20:37)
[2021-12-26] MEDS: Zinc Sulfate 220 MG CAP PO SCH (08:39)
[2021-12-26] MEDS: Cefepime 0.5 GM in Sodium Chloride 0.9% 100 ML IVPB SCH (08:39)
[2021-12-26] MEDS: Ascorbic Acid 500 mg Chewable Tablet PO SCH (08:39)
[2021-12-26] MEDS: Sevelamer Carbonate 800 MG TAB PO SCH ×3 (08:39→16:51)
[2021-12-26] MEDS: Famotidine 20 MG TAB PO SCH (08:39)
[2021-12-26] MEDS: Cholecalciferol 1,000 UNITS (25 MCG) TAB PO SCH (08:39)
[2021-12-26] MEDS: Dexamethasone 4 mg/ml Vial SLOW IVP SCH (08:40)
[2021-12-26] MEDS: Fish Oil 1,000 MG CAP PO SCH (08:40)
[2021-12-26] MEDS: Aspirin Chewable 81 MG TAB PO SCH (08:40)
[2021-12-26] MEDS: Ezetimibe 10 MG TAB PO SCH (08:40)
[2021-12-26] MEDS: Polyethylene Glycol 3350 17 GM Packet PO SCH (08:40)
[2021-12-26 09:31] LABS: Anion Gap 24 mmol/L (10-20); BUN (Urea Nitrogen) 54 mg/dL (8.4-25.7); Calc. Creatinine Clearance 12 mL/min (70-130); Calcium 9.8 mg/dL (7.8-10.44); Carbon Dioxide 22 mmol/L (23-31); Chloride 93 mmol/L (98-107); Estimated GFR 8; Glucose 108 mg/dL (80-115); Sodium 135 mmol/L (136-145)
[2021-12-26] MEDS: HYDROcodone/Acetaminophen 10/325 mg Tablet PO PRN (20:37)
[2021-12-27 09:58] LABS: Vancomycin, Random 12.8 ug/mL (See Comment)
[2021-12-27 10:00] LABS: Anion Gap 20 mmol/L (10-20); BUN (Urea Nitrogen) 78 mg/dL (8.4-25.7); Calc. Creatinine Clearance 10 mL/min (70-130); Calcium 9.5 mg/dL (7.8-10.44); Carbon Dioxide 24 mmol/L (23-31); Chloride 93 mmol/L (98-107); Estimated GFR 7; Glucose 133 mg/dL (80-115); Potassium 3.9 mmol/L (3.5-5.1); Sodium 133 mmol/L (136-145)
[2021-12-27] MEDS: Ezetimibe 10 MG TAB PO SCH (10:10)
[2021-12-27] MEDS: Cholecalciferol 1,000 UNITS (25 MCG) TAB PO SCH (10:10)
[2021-12-27] MEDS: Polyethylene Glycol 3350 17 GM Packet PO SCH (10:10)
[2021-12-27] MEDS: Aspirin Chewable 81 MG TAB PO SCH (10:10)
[2021-12-27] MEDS: Famotidine 20 MG TAB PO SCH (10:10)
[2021-12-27] MEDS: Amiodarone 200 MG TAB PO SCH ×2 (10:10→20:49)
[2021-12-27] MEDS: Sevelamer Carbonate 800 MG TAB PO SCH ×3 (10:10→17:26)
[2021-12-27] MEDS: Ascorbic Acid 500 mg Chewable Tablet PO SCH (10:10)
[2021-12-27] MEDS: Fish Oil 1,000 MG CAP PO SCH (10:10)
[2021-12-27] MEDS: Zinc Sulfate 220 MG CAP PO SCH (10:11)
[2021-12-27] MEDS: Dexamethasone 4 mg/ml Vial SLOW IVP SCH (10:11)
[2021-12-27 10:31] LABS: Band 5 % (5-11); Hemoglobin 10.8 g/dL (14.0-18.0); Lymphocytes 9 % (21-51); MDiff Complete? YES; Mean Corpuscular HGB CONC 31.9 g/dL (32.0-36.0); Mean Corpuscular Hemoglobin 31.4 pg (27.0-31.0); Mean Corpuscular Volume 98.2 fL (78.0-98.0); Mean Platelet Volume 11.2 fL (7.4-10.4); Monocytes 5 % (0-10); Neutrophil 80 % (42-75); Ovalocytes SLIGHT = 2-5 cells (100X) (0-1/hpf); Platelet Count 80 thou/uL (130-400); Platelet Morphology Comment Appears Decreased; Polychromasia SLIGHT = 2-3 cells (100X) (0-2/hpf); RBC Distribution Width 15.6 % (11.5-14.5); Reactive Lymphocytes 1 % (0-10); Red Blood Cell (RBC) Count 3.43 mill/uL (4.70-6.10); Vacuoles SLIGHT; White Blood Cell (WBC) Count 18.4 thou/uL (4.8-10.8)
[2021-12-27] MEDS ORDERED: Vancomycin HCl 750 MG in Sodium Chloride 0.9% 250 ML 250 ML IVPB SCH (17:00)
[2021-12-27] MEDS: CEFAZOLIN 1 GM in Sodium Chloride 0.9% 100 ML IVPB SCH (17:26)
[2021-12-27] MEDS: HYDROcodone/Acetaminophen 10/325 mg Tablet PO PRN (20:49)
[2021-12-28 04:51] LABS: Anion Gap 16 mmol/L (10-20); BUN (Urea Nitrogen) 48 mg/dL (8.4-25.7); Calc. Creatinine Clearance 14 mL/min (70-130); Calcium 9.3 mg/dL (7.8-10.44); Carbon Dioxide 28 mmol/L (23-31); Chloride 97 mmol/L (98-107); Estimated GFR 10; Glucose 111 mg/dL (80-115); Potassium 4.1 mmol/L (3.5-5.1); Sodium 137 mmol/L (136-145)
[2021-12-28 05:01] LABS: Anisocytosis SLIGHT = 6-15 cells (100X) (0-5/hpf); Band 1 % (5-11); Eosinophils 1 % (0-10); Hemoglobin 11.7 g/dL (14.0-18.0); Hypochromia SLIGHT = 6-15 cells (100X) (0-5/hpf); Lymphocytes 8 % (21-51); MDiff Complete? YES; Macrocytosis SLIGHT = 6-15 cells (100X) (0-5/hpf); Mean Corpuscular HGB CONC 31.3 g/dL (32.0-36.0); Mean Corpuscular Hemoglobin 31.3 pg (27.0-31.0); Mean Platelet Volume 10.3 fL (7.4-10.4); Monocytes 12 % (0-10); Neutrophil 78 % (42-75); Platelet Count 112 thou/uL (130-400); Platelet Morphology Comment Appears Decreased; Polychromasia SLIGHT = 2-3 cells (100X) (0-2/hpf); RBC Distribution Width 15.8 % (11.5-14.5); Red Blood Cell (RBC) Count 3.73 mill/uL (4.70-6.10); Target Cells SLIGHT = 2-5 cells (100X) (0-1/hpf); White Blood Cell (WBC) Count 21.4 thou/uL (4.8-10.8)
[2021-12-28] MEDS: HYDROcodone/Acetaminophen 10/325 mg Tablet PO PRN ×2 (06:00→11:18)
[2021-12-28] MEDS: Polyethylene Glycol 3350 17 GM Packet PO SCH (08:01)
[2021-12-28] MEDS: Amiodarone 200 MG TAB PO SCH ×2 (08:01→20:16)
[2021-12-28] MEDS: Aspirin Chewable 81 MG TAB PO SCH (08:03)
[2021-12-28] MEDS: Cholecalciferol 1,000 UNITS (25 MCG) TAB PO SCH (08:04)
[2021-12-28] MEDS: Zinc Sulfate 220 MG CAP PO SCH (08:04)
[2021-12-28] MEDS: Ezetimibe 10 MG TAB PO SCH (08:04)
[2021-12-28] MEDS: Ascorbic Acid 500 mg Chewable Tablet PO SCH (08:04)
[2021-12-28] MEDS: Fish Oil 1,000 MG CAP PO SCH (08:04)
[2021-12-28] MEDS: Famotidine 20 MG TAB PO SCH (08:04)
[2021-12-28] MEDS: Sevelamer Carbonate 800 MG TAB PO SCH ×3 (08:05→17:07)
[2021-12-28] MEDS: Calcitriol 0.25 MCG CAP PO SCH (09:21)
[2021-12-28] MEDS: Midodrine HCl 5 MG TAB PO SCH ×3 (09:21→20:17)
[2021-12-28] MEDS: CEFAZOLIN 1 GM in Sodium Chloride 0.9% 100 ML IVPB SCH (17:07)
[2021-12-29 04:30] LABS: Anion Gap 20 mmol/L (10-20); BUN (Urea Nitrogen) 66 mg/dL (8.4-25.7); Calc. Creatinine Clearance 11 mL/min (70-130); Calcium 9.3 mg/dL (7.8-10.44); Carbon Dioxide 22 mmol/L (23-31); Chloride 96 mmol/L (98-107); Estimated GFR 8; Glucose 119 mg/dL (80-115); Potassium 3.9 mmol/L (3.5-5.1); Sodium 134 mmol/L (136-145)
[2021-12-29 04:36] LABS: Hemoglobin 12.5 g/dL (14.0-18.0); Mean Corpuscular HGB CONC 31.7 g/dL (32.0-36.0); Mean Corpuscular Hemoglobin 32.1 pg (27.0-31.0); Mean Platelet Volume 9.9 fL (7.4-10.4); Platelet Count 125 thou/uL (130-400); Red Blood Cell (RBC) Count 3.89 mill/uL (4.70-6.10); White Blood Cell (WBC) Count 22.2 thou/uL (4.8-10.8)
[2021-12-29 04:37] LABS: Band 4 % (5-11); Hypochromia SLIGHT = 6-15 cells (100X) (0-5/hpf); Lymphocytes 6 % (21-51); MDiff Complete? YES; Monocytes 21 % (0-10); Neutrophil 69 % (42-75); Platelet Morphology Comment Appears Adequate
[2021-12-29] MEDS: Sevelamer Carbonate 800 MG TAB PO SCH ×3 (08:02→16:15)
[2021-12-29] MEDS: Midodrine HCl 5 MG TAB PO SCH ×3 (10:23→22:05)
[2021-12-29] MEDS: Polyethylene Glycol 3350 17 GM Packet PO SCH (11:57)
[2021-12-29] MEDS: HYDROcodone/Acetaminophen 10/325 mg Tablet PO PRN ×2 (11:58→22:05)
[2021-12-29] MEDS: Amiodarone 200 MG TAB PO SCH ×2 (11:59→22:05)
[2021-12-29] MEDS: Aspirin Chewable 81 MG TAB PO SCH (11:59)
[2021-12-29] MEDS: Calcitriol 0.25 MCG CAP PO SCH (11:59)
[2021-12-29] MEDS: Fish Oil 1,000 MG CAP PO SCH (11:59)
[2021-12-29] MEDS: Ascorbic Acid 500 mg Chewable Tablet PO SCH (12:00)
[2021-12-29] MEDS: Famotidine 20 MG TAB PO SCH (12:00)
[2021-12-29] MEDS: Ezetimibe 10 MG TAB PO SCH (12:00)
[2021-12-29] MEDS: Zinc Sulfate 220 MG CAP PO SCH (12:00)
[2021-12-29] MEDS: CEFAZOLIN 1 GM in Sodium Chloride 0.9% 100 ML IVPB SCH (16:07)
[2021-12-29] MEDS: Apixaban 5 MG TAB PO SCH (22:05)
[2021-12-30 05:22] LABS: Anisocytosis SLIGHT = 6-15 cells (100X) (0-5/hpf); Band 5 % (5-11); Elliptocytes SLIGHT = 2-5 cells (100X) (0-1/hpf); Eosinophils 1 % (0-10); Hemoglobin 11.3 g/dL (14.0-18.0); Hypochromia SLIGHT = 6-15 cells (100X) (0-5/hpf); Lymphocytes 13 % (21-51); MDiff Complete? YES; Macrocytosis SLIGHT = 6-15 cells (100X) (0-5/hpf); Mean Corpuscular HGB CONC 31.2 g/dL (32.0-36.0); Mean Corpuscular Hemoglobin 31.2 pg (27.0-31.0); Mean Corpuscular Volume 99.8 fL (78.0-98.0); Mean Platelet Volume 9.8 fL (7.4-10.4); Metamyelocyte 2 % (0-0); Monocytes 3 % (0-10); Neutrophil 76 % (42-75); Platelet Count 165 thou/uL (130-400); Platelet Morphology Comment Appears Adequate; Polychromasia SLIGHT = 2-3 cells (100X) (0-2/hpf); RBC Distribution Width 15.8 % (11.5-14.5); Red Blood Cell (RBC) Count 3.64 mill/uL (4.70-6.10); Target Cells MODERATE= 6-15 cells (100X) (0-1/hpf); White Blood Cell (WBC) Count 22.6 thou/uL (4.8-10.8)
[2021-12-30] MEDS: Zinc Sulfate 220 MG CAP PO SCH (09:25)
[2021-12-30] MEDS: Fish Oil 1,000 MG CAP PO SCH (09:25)
[2021-12-30] MEDS: Calcitriol 0.25 MCG CAP PO SCH (09:25)
[2021-12-30] MEDS: Aspirin Chewable 81 MG TAB PO SCH (09:25)
[2021-12-30] MEDS: Ezetimibe 10 MG TAB PO SCH (09:25)
[2021-12-30] MEDS: Apixaban 5 MG TAB PO SCH ×2 (09:26→21:14)
[2021-12-30] MEDS: Amiodarone 200 MG TAB PO SCH ×2 (09:26→21:14)
[2021-12-30] MEDS: Midodrine HCl 5 MG TAB PO SCH ×3 (09:26→21:14)
[2021-12-30] MEDS: Ascorbic Acid 500 mg Chewable Tablet PO SCH (09:26)
[2021-12-30] MEDS: Sevelamer Carbonate 800 MG TAB PO SCH ×3 (09:26→17:10)
[2021-12-30] MEDS: Polyethylene Glycol 3350 17 GM Packet PO SCH (13:03)
[2021-12-30] MEDS: HYDROcodone/Acetaminophen 10/325 mg Tablet PO PRN ×2 (14:50→21:13)
[2021-12-30] MEDS: CEFAZOLIN 1 GM in Sodium Chloride 0.9% 100 ML IVPB SCH (17:10)
[2021-12-31 05:00] LABS: Band 11 % (5-11); Eosinophils 1 % (0-10); Hemoglobin 11.7 g/dL (14.0-18.0); Hypochromia SLIGHT = 6-15 cells (100X) (0-5/hpf); Lymphocytes 7 % (21-51); MDiff Complete? YES; Mean Corpuscular HGB CONC 31.1 g/dL (32.0-36.0); Mean Corpuscular Hemoglobin 32.1 pg (27.0-31.0); Monocytes 12 % (0-10); Neutrophil 69 % (42-75); Platelet Count 150 thou/uL (130-400); Platelet Morphology Comment Appears Adequate; RBC Distribution Width 16.2 % (11.5-14.5); Red Blood Cell (RBC) Count 3.64 mill/uL (4.70-6.10); White Blood Cell (WBC) Count 22.4 thou/uL (4.8-10.8)
[2021-12-31] MEDS: Aspirin Chewable 81 MG TAB PO SCH (09:47)
[2021-12-31] MEDS: Ascorbic Acid 500 mg Chewable Tablet PO SCH (09:47)
[2021-12-31] MEDS: Sevelamer Carbonate 800 MG TAB PO SCH ×3 (09:48→16:59)
[2021-12-31] MEDS: Midodrine HCl 5 MG TAB PO SCH ×3 (09:50→21:02)
[2021-12-31] MEDS: Calcitriol 0.25 MCG CAP PO SCH (09:50)
[2021-12-31] MEDS: Zinc Sulfate 220 MG CAP PO SCH (09:50)
[2021-12-31] MEDS: Apixaban 5 MG TAB PO SCH ×2 (09:50→21:03)
[2021-12-31] MEDS: Ezetimibe 10 MG TAB PO SCH (09:51)
[2021-12-31] MEDS: Amiodarone 200 MG TAB PO SCH ×2 (09:51→21:02)
[2021-12-31] MEDS: Fish Oil 1,000 MG CAP PO SCH (09:51)
[2021-12-31] MEDS: Polyethylene Glycol 3350 17 GM Packet PO SCH (09:52)
[2021-12-31] MEDS ORDERED: Iopamidol-370 76% 500 ML 1 ML ONE (14:58)
[2021-12-31] MEDS: CEFAZOLIN 1 GM in Sodium Chloride 0.9% 100 ML IVPB SCH (16:59)
[2021-12-31] MEDS: HYDROcodone/Acetaminophen 10/325 mg Tablet PO PRN (21:03)
[2022-01-01 06:46] LABS: #Eosinphils 0.2 thou/uL (0.0-0.7); #Lymphocytes 1.5 thou/uL (1.20-3.40); #Monocytes 1.4 thou/uL (0.11-0.59); #Neutrophils 11.3 thou/uL (1.40-6.50); %Basophils 0.3 % (0.0-1.0); %Eosinophils 1.3 % (0.0-10.0); %Lymphocytes 10.5 % (21.0-51.0); %Monocytes 9.6 % (0.0-10.0); %Neutrophils 78.2 % (42.0-75.0); Hemoglobin 10.8 g/dL (14.0-18.0); Mean Corpuscular HGB CONC 31.2 g/dL (32.0-36.0); Mean Corpuscular Hemoglobin 31.2 pg (27.0-31.0); Mean Corpuscular Volume 99.9 fL (78.0-98.0); Mean Platelet Volume 9.6 fL (7.4-10.4); Platelet Count 184 thou/uL (130-400); Red Blood Cell (RBC) Count 3.46 mill/uL (4.70-6.10); White Blood Cell (WBC) Count 14.5 thou/uL (4.8-10.8)
[2022-01-01 07:02] LABS: Anion Gap 20 mmol/L (10-20); BUN (Urea Nitrogen) 73 mg/dL (8.4-25.7); Calc. Creatinine Clearance 9 mL/min (70-130); Carbon Dioxide 25 mmol/L (23-31); Chloride 94 mmol/L (98-107); Estimated GFR 6; Glucose 90 mg/dL (80-115); Sodium 134 mmol/L (136-145)
[2022-01-01] MEDS ORDERED: Phenylephrine 10 MG/ML VIAL ONE (14:40)
[2022-01-01] MEDS ORDERED: PROPOFOL 200 MG/20 ML VIAL ONE (14:40)
[2022-01-01] MEDS ORDERED: Lidocaine 1% PF 5 ML VIAL ONE (14:40)
[2022-01-01] MEDS: Midodrine HCl 5 MG TAB PO SCH ×3 (15:41→20:06)
[2022-01-01] MEDS: Sevelamer Carbonate 800 MG TAB PO SCH ×3 (15:41→17:40)
[2022-01-01] MEDS: Amiodarone 200 MG TAB PO SCH ×2 (17:22→20:06)
[2022-01-01] MEDS: Apixaban 5 MG TAB PO SCH ×2 (17:22→20:07)
[2022-01-01] MEDS: Zinc Sulfate 220 MG CAP PO SCH (17:23)
[2022-01-01] MEDS: Ezetimibe 10 MG TAB PO SCH (17:23)
[2022-01-01] MEDS: Aspirin Chewable 81 MG TAB PO SCH (17:23)
[2022-01-01] MEDS: Ascorbic Acid 500 mg Chewable Tablet PO SCH (17:23)
[2022-01-01] MEDS: Polyethylene Glycol 3350 17 GM Packet PO SCH (17:23)
[2022-01-01] MEDS: Fish Oil 1,000 MG CAP PO SCH (17:23)
[2022-01-01] MEDS: Calcitriol 0.25 MCG CAP PO SCH (17:23)
[2022-01-01] MEDS: CEFAZOLIN 1 GM in Sodium Chloride 0.9% 100 ML IVPB SCH (17:43)
[2022-01-01] MEDS: HYDROcodone/Acetaminophen 10/325 mg Tablet PO PRN (20:07)
[2022-01-02 04:52] LABS: #Basophils 0.1 thou/uL (0.0-0.2); #Eosinphils 0.1 thou/uL (0.0-0.7); #Lymphocytes 1.4 thou/uL (1.20-3.40); #Monocytes 1.3 thou/uL (0.11-0.59); #Neutrophils 9.3 thou/uL (1.40-6.50); %Basophils 0.6 % (0.0-1.0); %Lymphocytes 11.5 % (21.0-51.0); %Monocytes 10.4 % (0.0-10.0); %Neutrophils 76.5 % (42.0-75.0); Hemoglobin 10.8 g/dL (14.0-18.0); Mean Corpuscular Hemoglobin 31.8 pg (27.0-31.0); Mean Corpuscular Volume 99.4 fL (78.0-98.0); Mean Platelet Volume 9.5 fL (7.4-10.4); Platelet Count 211 thou/uL (130-400); RBC Distribution Width 15.8 % (11.5-14.5); White Blood Cell (WBC) Count 12.1 thou/uL (4.8-10.8)
[2022-01-02 05:12] LABS: Anion Gap 16 mmol/L (10-20); BUN (Urea Nitrogen) 35 mg/dL (8.4-25.7); Calc. Creatinine Clearance 13 mL/min (70-130); Calcium 8.7 mg/dL (7.8-10.44); Carbon Dioxide 28 mmol/L (23-31); Chloride 95 mmol/L (98-107); Estimated GFR 9; Glucose 89 mg/dL (80-115); Potassium 4.5 mmol/L (3.5-5.1); Sodium 134 mmol/L (136-145)
[2022-01-02] MEDS ORDERED: Epoetin (ESRD) 10,000 UNITS/ML VIAL SC SCH (08:00)
[2022-01-02] MEDS: Calcitriol 0.25 MCG CAP PO SCH (09:07)
[2022-01-02] MEDS: Midodrine HCl 5 MG TAB PO SCH ×3 (09:07→20:14)
[2022-01-02] MEDS: HYDROcodone/Acetaminophen 10/325 mg Tablet PO PRN ×2 (09:07→18:11)
[2022-01-02] MEDS: Aspirin Chewable 81 MG TAB PO SCH (09:07)
[2022-01-02] MEDS: Polyethylene Glycol 3350 17 GM Packet PO SCH (09:07)
[2022-01-02] MEDS: Amiodarone 200 MG TAB PO SCH ×2 (09:08→20:13)
[2022-01-02] MEDS: Apixaban 5 MG TAB PO SCH ×2 (09:08→20:14)
[2022-01-02] MEDS: Ascorbic Acid 500 mg Chewable Tablet PO SCH (09:08)
[2022-01-02] MEDS: Sevelamer Carbonate 800 MG TAB PO SCH ×3 (09:08→17:35)
[2022-01-02] MEDS: Ezetimibe 10 MG TAB PO SCH (09:08)
[2022-01-02] MEDS: Fish Oil 1,000 MG CAP PO SCH (09:08)
[2022-01-02] MEDS: Zinc Sulfate 220 MG CAP PO SCH (09:08)
[2022-01-02] MEDS: CEFAZOLIN 1 GM in Sodium Chloride 0.9% 100 ML IVPB SCH (17:35)
[2022-01-03] MEDS: HYDROcodone/Acetaminophen 10/325 mg Tablet PO PRN ×2 (06:25→14:37)
[2022-01-03] MEDS: Midodrine HCl 5 MG TAB PO SCH ×2 (08:43→14:38)
[2022-01-03 08:48] LABS: #Basophils 0.1 thou/uL (0.0-0.2); #Eosinphils 0.1 thou/uL (0.0-0.7); #Lymphocytes 1.1 thou/uL (1.20-3.40); #Monocytes 1.1 thou/uL (0.11-0.59); #Neutrophils 10.9 thou/uL (1.40-6.50); %Basophils 0.4 % (0.0-1.0); %Eosinophils 0.7 % (0.0-10.0); %Lymphocytes 8.1 % (21.0-51.0); %Neutrophils 82.7 % (42.0-75.0); Hemoglobin 10.1 g/dL (14.0-18.0); Mean Corpuscular HGB CONC 31.5 g/dL (32.0-36.0); Mean Corpuscular Hemoglobin 30.7 pg (27.0-31.0); Mean Corpuscular Volume 97.7 fL (78.0-98.0); Mean Platelet Volume 8.9 fL (7.4-10.4); Platelet Count 232 thou/uL (130-400); RBC Distribution Width 15.8 % (11.5-14.5); Red Blood Cell (RBC) Count 3.28 mill/uL (4.70-6.10); White Blood Cell (WBC) Count 13.1 thou/uL (4.8-10.8)
[2022-01-03 09:07] LABS: Anion Gap 19 mmol/L (10-20); BUN (Urea Nitrogen) 51 mg/dL (8.4-25.7); Calc. Creatinine Clearance 9 mL/min (70-130); Calcium 8.9 mg/dL (7.8-10.44); Carbon Dioxide 24 mmol/L (23-31); Chloride 94 mmol/L (98-107); Estimated GFR 6; Glucose 107 mg/dL (80-115); Potassium 4.9 mmol/L (3.5-5.1); Sodium 132 mmol/L (136-145)
[2022-01-03] MEDS: Apixaban 5 MG TAB PO SCH (09:41)
[2022-01-03] MEDS: Amiodarone 200 MG TAB PO SCH (09:41)
[2022-01-03] MEDS: Sevelamer Carbonate 800 MG TAB PO SCH ×3 (09:41→16:50)
[2022-01-03] MEDS: Zinc Sulfate 220 MG CAP PO SCH (14:37)
[2022-01-03] MEDS: Aspirin Chewable 81 MG TAB PO SCH (14:38)
[2022-01-03] MEDS: Polyethylene Glycol 3350 17 GM Packet PO SCH ×2 (14:38→14:42)
[2022-01-03] MEDS: Fish Oil 1,000 MG CAP PO SCH (14:38)
[2022-01-03] MEDS: Ezetimibe 10 MG TAB PO SCH (14:38)
[2022-01-03] MEDS: Ascorbic Acid 500 mg Chewable Tablet PO SCH (14:38)
[2022-01-03] MEDS: Calcitriol 0.25 MCG CAP PO SCH (14:38)
[2022-01-03] MEDS: CEFAZOLIN 1 GM in Sodium Chloride 0.9% 100 ML IVPB SCH (16:50)
[2022-01-03 17:13] VITALS: BP 172/60; TEMP 99.3
== END 2022-01-03 17:55 | disposition home health service (06) | DRG 871 ==
LOC: ERS 01:05 → ERHOLD 05:04 → 2NO 15:30 → OBSVTOIN 12-25 16:05
PROVIDERS: ADMIT Student in an Organized Health Care Education/Training Program; ATTEND Internal Medicine
PROC: 3E03329 Introduction of Other Anti-infective into Peripheral Vein, Percutaneous Approach (ICD-10-PCS; 2021-12-25)
PROC: 5A1D70Z Performance of Urinary Filtration, Intermittent, Less than 6 Hours Per Day (ICD-10-PCS; 2021-12-25)
PROC: 5A1D70Z Performance of Urinary Filtration, Intermittent, Less than 6 Hours Per Day (ICD-10-PCS; 2021-12-27)
PROC: 5A1D70Z Performance of Urinary Filtration, Intermittent, Less than 6 Hours Per Day (ICD-10-PCS; 2021-12-29)
PROC: 5A1D70Z Performance of Urinary Filtration, Intermittent, Less than 6 Hours Per Day (ICD-10-PCS; 2021-12-30)
PROC: B246ZZ4 Ultrasonography of Right and Left Heart, Transesophageal (ICD-10-PCS; principal; 2022-01-01)
PROC: 5A1D70Z Performance of Urinary Filtration, Intermittent, Less than 6 Hours Per Day (ICD-10-PCS; 2022-01-01)
PROC: 5A1D70Z Performance of Urinary Filtration, Intermittent, Less than 6 Hours Per Day (ICD-10-PCS; 2022-01-03)
DX: A41.01 Sepsis due to Methicillin susceptible Staphylococcus aureus (principal); N18.6 End stage renal disease; I21.A1 Myocardial infarction type 2; I33.0 Acute and subacute infective endocarditis; I50.22 Chronic systolic (congestive) heart failure; N25.81 Secondary hyperparathyroidism of renal origin; I13.2 Hypertensive heart and chronic kidney disease with heart failure and with stage 5 chronic kidney disease, or end stage renal disease; I25.10 Atherosclerotic heart disease of native coronary artery without angina pectoris; I73.9 Peripheral vascular disease, unspecified; E78.5 Hyperlipidemia, unspecified; D69.6 Thrombocytopenia, unspecified; I48.0 Paroxysmal atrial fibrillation; Z20.822 Contact with and (suspected) exposure to COVID-19; G89.29 Other chronic pain; I25.5 Ischemic cardiomyopathy; D63.1 Anemia in chronic kidney disease; E78.00 Pure hypercholesterolemia, unspecified; M79.10 Myalgia, unspecified site; D72.829 Elevated white blood cell count, unspecified; T38.0X5A Adverse effect of glucocorticoids and synthetic analogues, initial encounter; E83.39 Other disorders of phosphorus metabolism; I08.1 Rheumatic disorders of both mitral and tricuspid valves; Z99.2 Dependence on renal dialysis; Z79.82 Long term (current) use of aspirin; Z79.899 Other long term (current) drug therapy; Z79.51 Long term (current) use of inhaled steroids; Z89.611 Acquired absence of right leg above knee; Z89.512 Acquired absence of left leg below knee; Z87.891 Personal history of nicotine dependence; Z95.5 Presence of coronary angioplasty implant and graft; Z95.810 Presence of automatic (implantable) cardiac defibrillator; Z89.511 Acquired absence of right leg below knee
CPT/HCPCS: 36415; 36416; 71045; 72132; 74176; 80048; 80053; 80202; 82550; 82553; 83605; 83970; 84484; 85025; 87040; 87077; 87149; 87186; 90935; 93005; 93306; 93312; 96374; 96375; 96376; G0257; G0378; J0690; J0692; J1100; J2370; J2704; J3370; J3490; J7050; J7120; J7620; Q4081; Q9967; U0002; U0003; U0005

== ENCOUNTER 2022-01-15 02:40 | Emergency (ER) | payer MEDICARE, BC ==
[2022-01-15 03:43] LABS: Hemoglobin 8.1 g/dL (14.0-18.0); Mean Corpuscular HGB CONC 32.9 g/dL (32.0-36.0); Mean Corpuscular Volume 94.1 fL (78.0-98.0); Mean Platelet Volume 8.4 fL (7.4-10.4); Platelet Count 249 thou/uL (130-400); RBC Distribution Width 15.5 % (11.5-14.5); Red Blood Cell (RBC) Count 2.61 mill/uL (4.70-6.10); White Blood Cell (WBC) Count 9.4 thou/uL (4.8-10.8)
[2022-01-15 03:56] LABS: Band 4 % (5-11); Hypochromia SLIGHT = 6-15 cells (100X) (0-5/hpf); Lymphocytes 12 % (21-51); MDiff Complete? YES; Monocytes 13 % (0-10); Neutrophil 71 % (42-75); Platelet Morphology Comment Appears Adequate
[2022-01-15 04:01] LABS: ALT (SGPT) Less than 7 U/L (8-55); AST (SGOT) 55 U/L (5-34); Albumin 2.2 g/dL (3.4-4.8); Alkaline Phosphatase 70 U/L (40-110); Anion Gap 22 mmol/L (10-20); BUN (Urea Nitrogen) 55 mg/dL (8.4-25.7); Bilirubin, Total 0.3 mg/dL (0.2-1.2); Calc. Creatinine Clearance 0 mL/min (70-130); Calcium 9.2 mg/dL (7.8-10.44); Carbon Dioxide 22 mmol/L (23-31); Chloride 97 mmol/L (98-107); Estimated GFR 4; Globulin 4.9 g/dL (2.4-3.5); Glucose 101 mg/dL (80-115); Potassium 4.9 mmol/L (3.5-5.1); Protein, Total 7.1 g/dL (5.8-8.1); Sodium 136 mmol/L (136-145)
== END 2022-01-15 05:19 | disposition home or self-care (01) ==
LOC: ERS 02:40
DX: R53.83 Other fatigue (principal); R53.81 Other malaise; R52 Pain, unspecified; I12.0 Hypertensive chronic kidney disease with stage 5 chronic kidney disease or end stage renal disease; N18.6 End stage renal disease; E78.00 Pure hypercholesterolemia, unspecified; Z79.899 Other long term (current) drug therapy; Z79.82 Long term (current) use of aspirin; Z79.01 Long term (current) use of anticoagulants
CPT/HCPCS: 36415; 71045; 80053; 83605; 85025; 87040; 87077; 87149; 87186

== ENCOUNTER 2022-01-17 06:56 | Inpatient (IN) | payer MEDICARE, BC ==
[2022-01-17] MEDS ORDERED: Ondansetron PF 4 MG/2 ML Vial ONE (08:14)
[2022-01-17] MEDS ORDERED: Morphine 4 MG/ML VIAL ONE (08:14)
[2022-01-17] MEDS ORDERED: Heparin 10,000 UNITS/ 10 ML VIAL ONE (08:35)
[2022-01-17] MEDS ORDERED: Iopamidol-370 76% 500 ML 1 ML ONE (08:35)
[2022-01-17 08:46] LABS: Hemoglobin 7.9 g/dL (14.0-18.0); Mean Corpuscular HGB CONC 30.5 g/dL (32.0-36.0); Mean Corpuscular Volume 95.2 fL (78.0-98.0); Mean Platelet Volume 8.6 fL (7.4-10.4); Platelet Count 325 thou/uL (130-400); RBC Distribution Width 15.8 % (11.5-14.5); Red Blood Cell (RBC) Count 2.71 mill/uL (4.70-6.10); White Blood Cell (WBC) Count 20.9 thou/uL (4.8-10.8)
[2022-01-17 08:50] LABS: INR-International Normal Ratio 2.8; Prothrombin Time 30.1 sec (12.0-14.7)
[2022-01-17 08:59] LABS: Band 6 % (5-11); Hypochromia SLIGHT = 6-15 cells (100X) (0-5/hpf); Lymphocytes 8 % (21-51); MDiff Complete? YES; Monocytes 9 % (0-10); Neutrophil 77 % (42-75); Platelet Morphology Comment Appears Adequate; Polychromasia SLIGHT = 2-3 cells (100X) (0-2/hpf); Vacuoles MODERATE
[2022-01-17 09:06] LABS: ALT (SGPT) Less than 7 U/L (8-55); AST (SGOT) 63 U/L (5-34); Albumin 2.2 g/dL (3.4-4.8); Alkaline Phosphatase 99 U/L (40-110); Anion Gap 26 mmol/L (10-20); BUN (Urea Nitrogen) 77 mg/dL (8.4-25.7); Bilirubin, Total 0.5 mg/dL (0.2-1.2); CRP (Inflammatory) 28.71 mg/dL (= or < 0.5); Calc. Creatinine Clearance 0 mL/min (70-130); Calcium 9.2 mg/dL (7.8-10.44); Carbon Dioxide 18 mmol/L (23-31); Chloride 98 mmol/L (98-107); Estimated GFR 3; Globulin 4.9 g/dL (2.4-3.5); Glucose 82 mg/dL (80-115); Potassium 6.3 mmol/L (3.5-5.1); Protein, Total 7.1 g/dL (5.8-8.1); Sodium 136 mmol/L (136-145)
[2022-01-17] MEDS ORDERED: Piperacillin/Tazobactam 3.375 GM VIAL ONE (09:16)
[2022-01-17] MEDS ORDERED: Insulin Regular 300 UNITS/3 ML VIAL ONE (10:09)
[2022-01-17] MEDS ORDERED: Calcium Chloride 1 GM/10 ML Abboject SYRINGE ONE (10:09)
[2022-01-17] MEDS ORDERED: Dextrose 50% Abboject 50 ML SYRINGE ONE (10:09)
[2022-01-17] MEDS ORDERED: Vancomycin 1 GM/200 ML BAG ONE (10:09)
[2022-01-17 12:28] LABS: Critical Call Chem Troponin I RESULT DECREASING; Lactic Acid 3.4 mmol/L (0.5-2.2)
[2022-01-17] MEDS ORDERED: Piperacillin/Tazobactam 2.25 GM in Sodium Chloride 0.9% 100 ML IVPB SCH (14:00)
[2022-01-17] MEDS ORDERED: Vancomycin HCl 500 MG in Sodium Chloride 0.9% 100 ML IVPB SCH (15:00)
[2022-01-17 15:34] LABS: SARS-CoV-2 NAA Rapid Test Not Detected (NotDetected)
[2022-01-17] MEDS: Piperacillin/Tazobactam 3.375 GM in Sodium Chloride 0.9% 100 ML IVPB SCH (15:37)
[2022-01-17] MEDS: Sevelamer Carbonate 800 MG TAB PO SCH ×2 (15:38→23:23)
[2022-01-17 15:46] LABS: Hep B Core Total Ab Non-Reactive (NonReactive); Hep B Core Total Index 0.07 S/CO (0-0.79); Hep B Surf Ag Non-Reactive S/CO (NonReactive); Hep C IgG Ab Non-Reactive (NonReactive); Hep C Index 0.06 S/CO (0-0.79)
[2022-01-17] MEDS: Midodrine HCl 5 MG TAB PO SCH ×2 (15:50→23:23)
[2022-01-17] MEDS: HYDROcodone/Acetaminophen 10/325 mg Tablet PO PRN (15:50)
[2022-01-17 15:51] LABS: Critical Call Chem Troponin I RESULT DECREASING; HBSAB Concentration 124.55 mIU/mL; Hep B Surf AB Reactive (NonReactive); Troponin I 4.316 ng/mL (< 0.028)
[2022-01-17 17:39] LABS: Anion Gap 14 mmol/L (10-20); BUN (Urea Nitrogen) 53 mg/dL (8.4-25.7); Calc. Creatinine Clearance 8 mL/min (70-130); Carbon Dioxide 28 mmol/L (23-31); Chloride 99 mmol/L (98-107); Estimated GFR 5; Glucose 84 mg/dL (80-115); Potassium 4.1 mmol/L (3.5-5.1); Sodium 137 mmol/L (136-145)
[2022-01-17 18:14] LABS: Actual Bicarbonate (HCO3a) 19.8 mEq/L (22-28); Base Excess (BEa) -1.7 mEq/L (-2.0 to +3.0); Calcium, Ionized (arterial) 1.13 mmol/L (1.12-1.30); Carboxyhemoglobin (COHb) 0.4 gm% (0.0-3.0); Hemoglobin (Hb) 8.8 g/dL (14.0-18.0); O2 Tension (PaO2), arterial 89.4 mmHg (> 80.0); Potassium - ABG Lab 4.49 mmol/L (3.70-5.30)
[2022-01-17 18:15] LABS: CO2 Tension 23.2 mmHg (35.0-45.0); Puncture Site RRA; pH, Arterial 7.55 (7.35-7.45)
[2022-01-17] MEDS ORDERED: Acetaminophen 650 MG Suppository PR PRN (18:47)
[2022-01-17 18:57] LABS: Hemoglobin 8.1 g/dL (14.0-18.0); Mean Corpuscular HGB CONC 30.9 g/dL (32.0-36.0); Mean Corpuscular Hemoglobin 29.2 pg (27.0-31.0); Mean Corpuscular Volume 94.4 fL (78.0-98.0); Mean Platelet Volume 8.6 fL (7.4-10.4); Platelet Count 336 thou/uL (130-400); RBC Distribution Width 15.9 % (11.5-14.5); Red Blood Cell (RBC) Count 2.76 mill/uL (4.70-6.10); White Blood Cell (WBC) Count 4.1 thou/uL (4.8-10.8)
[2022-01-17 19:08] LABS: ALT (SGPT) Less than 7 U/L (8-55); AST (SGOT) 70 U/L (5-34); Albumin 2.2 g/dL (3.4-4.8); Alkaline Phosphatase 103 U/L (40-110); Anion Gap 24 mmol/L (10-20); BUN (Urea Nitrogen) 47 mg/dL (8.4-25.7); Bilirubin, Total 0.7 mg/dL (0.2-1.2); Calc. Creatinine Clearance 9 mL/min (70-130); Calcium 8.8 mg/dL (7.8-10.44); Carbon Dioxide 20 mmol/L (23-31); Chloride 97 mmol/L (98-107); Estimated GFR 6; Globulin 4.2 g/dL (2.4-3.5); Glucose 71 mg/dL (80-115); Lactic Acid 6.1 mmol/L (0.5-2.2); Protein, Total 6.4 g/dL (5.8-8.1); Sodium 136 mmol/L (136-145)
[2022-01-17 19:13] LABS: Band 3 % (5-11); Burr Cells SLIGHT = 2-5 cells (100X) (0-1/hpf); Hypochromia SLIGHT = 6-15 cells (100X) (0-5/hpf); Lymphocytes 8 % (21-51); MDiff Complete? YES; Monocytes 2 % (0-10); Myelocyte 1 % (0-0); Neutrophil 81 % (42-75); Nucleated RBC 3 % (0); Platelet Morphology Comment Appears Adequate; Polychromasia SLIGHT = 2-3 cells (100X) (0-2/hpf); Reactive Lymphocytes 5 % (0-10)
[2022-01-17] MEDS: NOREPINEPHRINE 8 MG/250 ML-D5W 250 ML IVPB SCH (19:13)
[2022-01-17] MEDS ORDERED: Heparin 25,000 units/D5W 500 ML IVPB SCH (19:15)
[2022-01-17] MEDS ORDERED: Heparin 10,000 UNITS/ 10 ML VIAL SLOW IVP SCH (19:15)
[2022-01-17 19:16] LABS: Troponin I 4.361 ng/mL (< 0.028)
[2022-01-17 19:27] LABS: Hemoglobin 7.4 g/dL (14.0-18.0); Platelet Count 301 thou/uL (130-400)
[2022-01-17] MEDS ORDERED: Sodium Chloride 0.9% 500 ML IV SCH ×2 (19:45→21:00)
[2022-01-17] MEDS ORDERED: Apixaban 5 MG TAB PO SCH (21:00)
[2022-01-17 22:17] LABS: Lactic Acid 1.6 mmol/L (0.5-2.2)
[2022-01-17] MEDS: Amiodarone 200 MG TAB PO SCH (22:28)
[2022-01-17 22:41] LABS: Critical Call Chem Troponin I RESULT DECREASING; Troponin I 3.987 ng/mL (< 0.028)
[2022-01-17] MEDS: Ezetimibe 10 MG TAB PO SCH (23:23)
[2022-01-17] MEDS: Atorvastatin Calcium 40 MG TAB PO SCH (23:23)
[2022-01-18 00:45] LABS: Glucose 92 mg/dL (80-115)
[2022-01-18] MEDS: Piperacillin/Tazobactam 3.375 GM in Sodium Chloride 0.9% 100 ML IVPB SCH ×2 (01:00→12:34)
[2022-01-18] MEDS: NOREPINEPHRINE 8 MG/250 ML-D5W 250 ML IVPB SCH ×2 (03:57→14:11)
[2022-01-18 05:02] LABS: Lactic Acid 1.2 mmol/L (0.5-2.2)
[2022-01-18 05:05] LABS: Phosphorus 6.2 mg/dL (2.3-4.7)
[2022-01-18 05:15] LABS: Anion Gap 20 mmol/L (10-20); BUN (Urea Nitrogen) 51 mg/dL (8.4-25.7); Calc. Creatinine Clearance 7 mL/min (70-130); Calcium 9.1 mg/dL (7.8-10.44); Carbon Dioxide 22 mmol/L (23-31); Chloride 98 mmol/L (98-107); Estimated GFR 5; Glucose 128 mg/dL (80-115); Potassium 5.1 mmol/L (3.5-5.1); Sodium 135 mmol/L (136-145)
[2022-01-18 05:25] LABS: Hemoglobin 7.2 g/dL (14.0-18.0); Mean Corpuscular HGB CONC 30.9 g/dL (32.0-36.0); Mean Corpuscular Hemoglobin 29.5 pg (27.0-31.0); Mean Corpuscular Volume 95.6 fL (78.0-98.0); Mean Platelet Volume 8.3 fL (7.4-10.4); Platelet Count 360 thou/uL (130-400); RBC Distribution Width 15.9 % (11.5-14.5); Red Blood Cell (RBC) Count 2.45 mill/uL (4.70-6.10); White Blood Cell (WBC) Count 26.3 thou/uL (4.8-10.8)
[2022-01-18 05:51] LABS: Anisocytosis SLIGHT = 6-15 cells (100X) (0-5/hpf); Band 9 % (5-11); Hypochromia SLIGHT = 6-15 cells (100X) (0-5/hpf); Lymphocytes 4 % (21-51); MDiff Complete? YES; Monocytes 11 % (0-10); Neutrophil 76 % (42-75); Platelet Morphology Comment Appears Adequate; Polychromasia SLIGHT = 2-3 cells (100X) (0-2/hpf)
[2022-01-18] MEDS: Sevelamer Carbonate 800 MG TAB PO SCH ×3 (08:01→16:46)
[2022-01-18] MEDS ORDERED: Heparin 10,000 UNITS/ 10 ML VIAL ONE (08:28)
[2022-01-18] MEDS ORDERED: Vancomycin Sliding Scale FS PRN (09:02)
[2022-01-18 09:49] LABS: Vancomycin, Random 20.6 ug/mL (See Comment)
[2022-01-18] MEDS: Famotidine 20 MG TAB PO SCH (09:56)
[2022-01-18] MEDS: Calcitriol 0.25 MCG CAP PO SCH (09:56)
[2022-01-18] MEDS: Midodrine HCl 5 MG TAB PO SCH ×3 (09:56→20:13)
[2022-01-18] MEDS: Ezetimibe 10 MG TAB PO SCH ×2 (09:57→20:10)
[2022-01-18] MEDS: Amiodarone 200 MG TAB PO SCH ×2 (09:57→20:12)
[2022-01-18] MEDS: Aspirin Chewable 81 MG TAB PO SCH (09:57)
[2022-01-18] MEDS ORDERED: Morphine 2 MG/ML VIAL SLOW IVP SCH (12:45)
[2022-01-18] MEDS: HYDROcodone/Acetaminophen 10/325 mg Tablet PO PRN ×2 (13:37→20:10)
[2022-01-18] MEDS ORDERED: Vancomycin HCl 750 MG in Sodium Chloride 0.9% 250 ML 250 ML IVPB SCH (14:00)
[2022-01-18] MEDS ORDERED: VANCOMYCIN 1.25 GM/250 ML BAG 1.25 GM in Premix Bag 1 BAG IVPB SCH (14:00)
[2022-01-18] MEDS ORDERED: Morphine 2 MG/ML VIAL SLOW IVP PRN (16:02)
[2022-01-18] MEDS: Atorvastatin Calcium 40 MG TAB PO SCH (20:10)
[2022-01-19] MEDS: Piperacillin/Tazobactam 3.375 GM in Sodium Chloride 0.9% 100 ML IVPB SCH ×2 (01:40→13:19)
[2022-01-19] MEDS: HYDROcodone/Acetaminophen 10/325 mg Tablet PO PRN ×2 (04:39→10:08)
[2022-01-19 05:49] LABS: Troponin I 3.515 ng/mL (< 0.028)
[2022-01-19 07:00] LABS: Vancomycin, Random 26.8 ug/mL (See Comment)
[2022-01-19] MEDS ORDERED: Midodrine HCl 5 MG TAB PO SCH ×2 (07:43→08:00)
[2022-01-19] MEDS: Aspirin Chewable 81 MG TAB PO SCH (08:55)
[2022-01-19] MEDS: Ezetimibe 10 MG TAB PO SCH ×2 (08:55→21:08)
[2022-01-19] MEDS: Calcitriol 0.25 MCG CAP PO SCH (08:55)
[2022-01-19] MEDS: Amiodarone 200 MG TAB PO SCH ×2 (08:56→21:07)
[2022-01-19] MEDS: Sevelamer Carbonate 800 MG TAB PO SCH ×3 (08:56→17:08)
[2022-01-19] MEDS: Famotidine 20 MG TAB PO SCH (08:56)
[2022-01-19] MEDS ORDERED: Heparin 10,000 UNITS/ 10 ML VIAL ONE (08:57)
[2022-01-19] MEDS: NOREPINEPHRINE 8 MG/250 ML-D5W 250 ML IVPB SCH (10:11)
[2022-01-19] MEDS ORDERED: Fentanyl 100 MCG/2 ML VIAL ONE (10:22)
[2022-01-19] MEDS ORDERED: Fentanyl 100 MCG/2 ML VIAL SLOW IVP SCH (10:22)
[2022-01-19] MEDS ORDERED: Vancomycin Diaylsis Sliding Scale (Wt 71-99) FS SCH (11:15)
[2022-01-19 11:16] LABS: Hemoglobin 8.3 g/dL (14.0-18.0); Platelet Count 319 thou/uL (130-400)
[2022-01-19] MEDS ORDERED: Lidocaine 1% (PF) 30 ML VIAL SC SCH (13:00)
[2022-01-19] MEDS ORDERED: Lidocaine 1% PF 5 ML VIAL FS SCH (13:15)
[2022-01-19] MEDS: Midodrine HCl 5 MG TAB PO SCH ×2 (13:50→21:07)
[2022-01-19] MEDS: Fentanyl 100 MCG/2 ML VIAL SLOW IVP PRN (14:18)
[2022-01-19] MEDS: Atorvastatin Calcium 40 MG TAB PO SCH (21:07)
[2022-01-20] MEDS: Piperacillin/Tazobactam 3.375 GM in Sodium Chloride 0.9% 100 ML IVPB SCH ×2 (00:51→13:08)
[2022-01-20] MEDS: Midodrine HCl 5 MG TAB PO SCH ×3 (06:34→20:38)
[2022-01-20 07:07] LABS: Anion Gap 13 mmol/L (10-20); BUN (Urea Nitrogen) 26 mg/dL (8.4-25.7); Calc. Creatinine Clearance 14 mL/min (70-130); Calcium 8.6 mg/dL (7.8-10.44); Carbon Dioxide 30 mmol/L (23-31); Chloride 93 mmol/L (98-107); Estimated GFR 11; Glucose 98 mg/dL (80-115); Potassium 3.9 mmol/L (3.5-5.1); Sodium 132 mmol/L (136-145)
[2022-01-20 07:08] LABS: Mean Corpuscular HGB CONC 30.5 g/dL (32.0-36.0); Mean Corpuscular Hemoglobin 28.5 pg (27.0-31.0); Mean Corpuscular Volume 93.4 fL (78.0-98.0); Mean Platelet Volume 8.4 fL (7.4-10.4); Platelet Count 309 thou/uL (130-400); RBC Distribution Width 15.5 % (11.5-14.5); Red Blood Cell (RBC) Count 2.79 mill/uL (4.70-6.10); White Blood Cell (WBC) Count 14.6 thou/uL (4.8-10.8)
[2022-01-20 07:30] LABS: Band 2 % (5-11); Hypochromia SLIGHT = 6-15 cells (100X) (0-5/hpf); Lymphocytes 6 % (21-51); MDiff Complete? YES; Monocytes 13 % (0-10); Neutrophil 75 % (42-75); Ovalocytes SLIGHT = 2-5 cells (100X) (0-1/hpf); Platelet Morphology Comment Appears Adequate; Polychromasia SLIGHT = 2-3 cells (100X) (0-2/hpf); Reactive Lymphocytes 4 % (0-10); Schistocytes SLIGHT = 2-5 cells (100X) (0-1/hpf); Target Cells SLIGHT = 2-5 cells (100X) (0-1/hpf)
[2022-01-20] MEDS: Epoetin (ESRD) 10,000 UNITS/ML VIAL SC SCH (09:16)
[2022-01-20] MEDS: Famotidine 20 MG TAB PO SCH (09:24)
[2022-01-20] MEDS: Calcitriol 0.25 MCG CAP PO SCH (09:24)
[2022-01-20] MEDS: Sevelamer Carbonate 800 MG TAB PO SCH ×3 (09:24→18:24)
[2022-01-20] MEDS: Ezetimibe 10 MG TAB PO SCH ×2 (09:25→20:38)
[2022-01-20] MEDS: Amiodarone 200 MG TAB PO SCH ×2 (09:25→20:38)
[2022-01-20] MEDS: Aspirin Chewable 81 MG TAB PO SCH (09:25)
[2022-01-20] MEDS: Fentanyl 100 MCG/2 ML VIAL SLOW IVP PRN (16:50)
[2022-01-20] MEDS: Atorvastatin Calcium 40 MG TAB PO SCH (20:38)
[2022-01-21] MEDS: Acetaminophen 325 MG TAB PO PRN ×3 (01:02→21:47)
[2022-01-21] MEDS: Piperacillin/Tazobactam 3.375 GM in Sodium Chloride 0.9% 100 ML IVPB SCH ×2 (01:03→12:28)
[2022-01-21] MEDS: Midodrine HCl 5 MG TAB PO SCH ×3 (05:08→22:37)
[2022-01-21 05:49] LABS: Hemoglobin 8.2 g/dL (14.0-18.0); Mean Corpuscular HGB CONC 31.1 g/dL (32.0-36.0); Mean Corpuscular Hemoglobin 29.1 pg (27.0-31.0); Mean Corpuscular Volume 93.5 fL (78.0-98.0); Mean Platelet Volume 8.5 fL (7.4-10.4); Platelet Count 320 thou/uL (130-400); RBC Distribution Width 15.9 % (11.5-14.5); Red Blood Cell (RBC) Count 2.84 mill/uL (4.70-6.10); White Blood Cell (WBC) Count 17.8 thou/uL (4.8-10.8)
[2022-01-21 05:54] LABS: Burr Cells SLIGHT = 2-5 cells (100X) (0-1/hpf); Eosinophils 1 % (0-10); Lymphocytes 11 % (21-51); MDiff Complete? YES; Metamyelocyte 3 % (0-0); Monocytes 11 % (0-10); Myelocyte 1 % (0-0); Neutrophil 73 % (42-75)
[2022-01-21 06:02] LABS: ALT (SGPT) Less than 7 U/L (8-55); AST (SGOT) 41 U/L (5-34); Alkaline Phosphatase 139 U/L (40-110); Anion Gap 17 mmol/L (10-20); BUN (Urea Nitrogen) 34 mg/dL (8.4-25.7); Bilirubin, Direct 0.4 mg/dL (0.1-0.3); Bilirubin, Total 0.6 mg/dL (0.2-1.2); Calc. Creatinine Clearance 12 mL/min (70-130); Calcium 9.1 mg/dL (7.8-10.44); Carbon Dioxide 27 mmol/L (23-31); Chloride 93 mmol/L (98-107); Estimated GFR 8; Glucose 100 mg/dL (80-115); Magnesium 2.1 mg/dL (1.6-2.6); Potassium 4.2 mmol/L (3.5-5.1); Protein, Total 6.3 g/dL (5.8-8.1); Sodium 133 mmol/L (136-145)
[2022-01-21] MEDS: Sevelamer Carbonate 800 MG TAB PO SCH ×3 (09:41→16:11)
[2022-01-21] MEDS: Amiodarone 200 MG TAB PO SCH ×2 (09:41→21:47)
[2022-01-21] MEDS: Famotidine 20 MG TAB PO SCH (09:41)
[2022-01-21] MEDS: Ezetimibe 10 MG TAB PO SCH ×2 (09:41→21:47)
[2022-01-21] MEDS: Calcitriol 0.25 MCG CAP PO SCH (09:41)
[2022-01-21] MEDS: Aspirin Chewable 81 MG TAB PO SCH (09:42)
[2022-01-21] MEDS: Atorvastatin Calcium 40 MG TAB PO SCH (21:47)
[2022-01-21] MEDS: Fentanyl 100 MCG/2 ML VIAL SLOW IVP PRN (21:50)
[2022-01-21] MEDS ORDERED: Dextrose 5% in Water 1,000 ML IV PRN (22:30)
[2022-01-21 23:55] LABS: CKMB 3.6 ng/mL (0-6.6)
[2022-01-22] MEDS: Piperacillin/Tazobactam 3.375 GM in Sodium Chloride 0.9% 100 ML IVPB SCH ×2 (01:47→14:11)
[2022-01-22 06:15] LABS: Anion Gap 20 mmol/L (10-20); BUN (Urea Nitrogen) 44 mg/dL (8.4-25.7); Calc. Creatinine Clearance 10 mL/min (70-130); Calcium 9.3 mg/dL (7.8-10.44); Carbon Dioxide 25 mmol/L (23-31); Chloride 92 mmol/L (98-107); Estimated GFR 7; Glucose 110 mg/dL (80-115); Magnesium 2.3 mg/dL (1.6-2.6); Potassium 4.5 mmol/L (3.5-5.1); Sodium 132 mmol/L (136-145)
[2022-01-22] MEDS: Midodrine HCl 5 MG TAB PO SCH ×2 (06:22→16:14)
[2022-01-22 06:28] LABS: Band 3 % (5-11); Hemoglobin 8.6 g/dL (14.0-18.0); Lymphocytes 17 % (21-51); MDiff Complete? YES; Mean Corpuscular HGB CONC 31.4 g/dL (32.0-36.0); Mean Corpuscular Hemoglobin 29.2 pg (27.0-31.0); Mean Corpuscular Volume 92.7 fL (78.0-98.0); Mean Platelet Volume 8.5 fL (7.4-10.4); Monocytes 14 % (0-10); Myelocyte 1 % (0-0); Neutrophil 65 % (42-75); Platelet Count 355 thou/uL (130-400); RBC Distribution Width 16.2 % (11.5-14.5); Red Blood Cell (RBC) Count 2.95 mill/uL (4.70-6.10); White Blood Cell (WBC) Count 20.2 thou/uL (4.8-10.8)
[2022-01-22] MEDS: Fentanyl 100 MCG/2 ML VIAL SLOW IVP PRN ×2 (06:31→22:41)
[2022-01-22] MEDS ORDERED: Heparin 10,000 UNITS/ 10 ML VIAL ONE (08:32)
[2022-01-22] MEDS: Ezetimibe 10 MG TAB PO SCH (08:36)
[2022-01-22] MEDS: Sevelamer Carbonate 800 MG TAB PO SCH ×4 (08:36→18:26)
[2022-01-22] MEDS: Famotidine 20 MG TAB PO SCH (08:36)
[2022-01-22] MEDS: Calcitriol 0.25 MCG CAP PO SCH (08:37)
[2022-01-22] MEDS: Amiodarone 200 MG TAB PO SCH (08:37)
[2022-01-22] MEDS: Aspirin Chewable 81 MG TAB PO SCH (08:38)
[2022-01-22] MEDS: Acetaminophen 325 MG TAB PO PRN (08:38)
[2022-01-22] MEDS: Atorvastatin Calcium 40 MG TAB PO SCH (22:21)
[2022-01-22 22:54] LABS: Anion Gap 19 mmol/L (10-20); BUN (Urea Nitrogen) 20 mg/dL (8.4-25.7); Calc. Creatinine Clearance 18 mL/min (70-130); Calcium 8.7 mg/dL (7.8-10.44); Carbon Dioxide 23 mmol/L (23-31); Chloride 95 mmol/L (98-107); Estimated GFR 13; Glucose 110 mg/dL (80-115); Potassium 3.8 mmol/L (3.5-5.1); Sodium 133 mmol/L (136-145)
[2022-01-23] MEDS: Midodrine HCl 5 MG TAB PO SCH ×4 (00:37→21:44)
[2022-01-23] MEDS: Piperacillin/Tazobactam 3.375 GM in Sodium Chloride 0.9% 100 ML IVPB SCH ×2 (00:41→13:32)
[2022-01-23 06:52] LABS: Band 1 % (5-11); Hemoglobin 8.2 g/dL (14.0-18.0); Lymphocytes 11 % (21-51); MDiff Complete? YES; Mean Corpuscular Hemoglobin 28.9 pg (27.0-31.0); Mean Corpuscular Volume 93.3 fL (78.0-98.0); Mean Platelet Volume 8.4 fL (7.4-10.4); Metamyelocyte 2 % (0-0); Monocytes 5 % (0-10); Myelocyte 2 % (0-0); Neutrophil 79 % (42-75); Nucleated RBC 3 % (0); Platelet Count 320 thou/uL (130-400); Polychromasia SLIGHT = 2-3 cells (100X) (0-2/hpf); RBC Distribution Width 16.9 % (11.5-14.5); Red Blood Cell (RBC) Count 2.83 mill/uL (4.70-6.10); White Blood Cell (WBC) Count 15.1 thou/uL (4.8-10.8)
[2022-01-23 06:53] LABS: Anion Gap 16 mmol/L (10-20); BUN (Urea Nitrogen) 25 mg/dL (8.4-25.7); Calc. Creatinine Clearance 16 mL/min (70-130); Calcium 9.1 mg/dL (7.8-10.44); Carbon Dioxide 28 mmol/L (23-31); Chloride 94 mmol/L (98-107); Estimated GFR 12; Glucose 129 mg/dL (80-115); Magnesium 2.1 mg/dL (1.6-2.6); Potassium 3.7 mmol/L (3.5-5.1); Sodium 134 mmol/L (136-145)
[2022-01-23] MEDS: Fentanyl 100 MCG/2 ML VIAL SLOW IVP PRN (09:59)
[2022-01-23] MEDS: Famotidine 20 MG TAB PO SCH (10:00)
[2022-01-23] MEDS: Ezetimibe 10 MG TAB PO SCH (10:01)
[2022-01-23] MEDS: Aspirin Chewable 81 MG TAB PO SCH (10:01)
[2022-01-23] MEDS: Calcitriol 0.25 MCG CAP PO SCH (10:01)
[2022-01-23] MEDS: Amiodarone 200 MG TAB PO SCH (10:01)
[2022-01-23] MEDS: Sevelamer Carbonate 800 MG TAB PO SCH ×3 (10:02→18:18)
[2022-01-23] MEDS: Atorvastatin Calcium 40 MG TAB PO SCH (21:43)
[2022-01-23] MEDS: Apixaban 5 MG TAB PO SCH (21:43)
[2022-01-24] MEDS: Piperacillin/Tazobactam 3.375 GM in Sodium Chloride 0.9% 100 ML IVPB SCH ×2 (00:31→13:29)
[2022-01-24] MEDS: Midodrine HCl 5 MG TAB PO SCH ×3 (06:13→20:36)
[2022-01-24 06:51] LABS: #Basophils 0.1 thou/uL (0.0-0.2); #Eosinphils 0.1 thou/uL (0.0-0.7); #Lymphocytes 1.6 thou/uL (1.20-3.40); #Neutrophils 10.8 thou/uL (1.40-6.50); %Eosinophils 0.9 % (0.0-10.0); %Lymphocytes 11.6 % (21.0-51.0); %Monocytes 7.5 % (0.0-10.0); %Neutrophils 78.9 % (42.0-75.0); Hemoglobin 7.9 g/dL (14.0-18.0); Mean Corpuscular HGB CONC 30.2 g/dL (32.0-36.0); Mean Corpuscular Hemoglobin 28.7 pg (27.0-31.0); Mean Corpuscular Volume 94.8 fL (78.0-98.0); Mean Platelet Volume 8.5 fL (7.4-10.4); Platelet Count 316 thou/uL (130-400); RBC Distribution Width 17.1 % (11.5-14.5); Red Blood Cell (RBC) Count 2.77 mill/uL (4.70-6.10); White Blood Cell (WBC) Count 13.7 thou/uL (4.8-10.8)
[2022-01-24 07:11] LABS: Anion Gap 17 mmol/L (10-20); BUN (Urea Nitrogen) 39 mg/dL (8.4-25.7); Calc. Creatinine Clearance 14 mL/min (70-130); Calcium 8.9 mg/dL (7.8-10.44); Carbon Dioxide 25 mmol/L (23-31); Chloride 96 mmol/L (98-107); Estimated GFR 9; Glucose 132 mg/dL (80-115); Magnesium 2.1 mg/dL (1.6-2.6); Potassium 4.3 mmol/L (3.5-5.1); Sodium 134 mmol/L (136-145)
[2022-01-24] MEDS ORDERED: Heparin 10,000 UNITS/ 10 ML VIAL ONE (08:53)
[2022-01-24] MEDS: Sevelamer Carbonate 800 MG TAB PO SCH ×3 (09:17→17:23)
[2022-01-24] MEDS: Apixaban 5 MG TAB PO SCH ×2 (13:30→20:36)
[2022-01-24] MEDS: Aspirin Chewable 81 MG TAB PO SCH (13:35)
[2022-01-24] MEDS: Amiodarone 200 MG TAB PO SCH (13:35)
[2022-01-24] MEDS: Famotidine 20 MG TAB PO SCH (13:40)
[2022-01-24] MEDS: Calcitriol 0.25 MCG CAP PO SCH (13:40)
[2022-01-24] MEDS: Ezetimibe 10 MG TAB PO SCH (13:40)
[2022-01-24] MEDS: Epoetin (ESRD) 10,000 UNITS/ML VIAL SC SCH (13:42)
[2022-01-24] MEDS: Fentanyl 100 MCG/2 ML VIAL SLOW IVP PRN (20:27)
[2022-01-24] MEDS: Atorvastatin Calcium 40 MG TAB PO SCH (20:36)
[2022-01-25] MEDS: Piperacillin/Tazobactam 3.375 GM in Sodium Chloride 0.9% 100 ML IVPB SCH ×2 (00:25→13:49)
[2022-01-25] MEDS: Fentanyl 100 MCG/2 ML VIAL SLOW IVP PRN ×2 (01:53→10:21)
[2022-01-25 05:10] LABS: Band 1 % (5-11); Hemoglobin 7.3 g/dL (14.0-18.0); Lymphocytes 7 % (21-51); MDiff Complete? YES; Mean Corpuscular HGB CONC 30.8 g/dL (32.0-36.0); Mean Corpuscular Hemoglobin 29.2 pg (27.0-31.0); Mean Corpuscular Volume 94.7 fL (78.0-98.0); Mean Platelet Volume 8.6 fL (7.4-10.4); Monocytes 8 % (0-10); Neutrophil 84 % (42-75); Nucleated RBC 1 % (0); Platelet Count 277 thou/uL (130-400); Polychromasia SLIGHT = 2-3 cells (100X) (0-2/hpf); RBC Distribution Width 17.5 % (11.5-14.5); Red Blood Cell (RBC) Count 2.52 mill/uL (4.70-6.10); White Blood Cell (WBC) Count 15.6 thou/uL (4.8-10.8)
[2022-01-25 05:13] LABS: Anion Gap 15 mmol/L (10-20); BUN (Urea Nitrogen) 30 mg/dL (8.4-25.7); Calc. Creatinine Clearance 17 mL/min (70-130); Calcium 9.2 mg/dL (7.8-10.44); Carbon Dioxide 28 mmol/L (23-31); Chloride 97 mmol/L (98-107); Estimated GFR 11; Glucose 100 mg/dL (80-115); Magnesium 2.1 mg/dL (1.6-2.6); Potassium 4.1 mmol/L (3.5-5.1); Sodium 136 mmol/L (136-145)
[2022-01-25] MEDS: Midodrine HCl 5 MG TAB PO SCH ×4 (06:56→21:12)
[2022-01-25] MEDS: Aspirin Chewable 81 MG TAB PO SCH (09:18)
[2022-01-25] MEDS: Sevelamer Carbonate 800 MG TAB PO SCH ×4 (09:19→16:40)
[2022-01-25] MEDS: Apixaban 5 MG TAB PO SCH ×2 (09:19→21:12)
[2022-01-25] MEDS: Ezetimibe 10 MG TAB PO SCH (09:19)
[2022-01-25] MEDS: Amiodarone 200 MG TAB PO SCH (09:19)
[2022-01-25] MEDS: Famotidine 20 MG TAB PO SCH (09:19)
[2022-01-25] MEDS: Calcitriol 0.25 MCG CAP PO SCH (09:19)
[2022-01-25] MEDS: HYDROcodone/Acetaminophen 5/325 mg Tablet PO PRN (16:39)
[2022-01-25] MEDS: Atorvastatin Calcium 40 MG TAB PO SCH (21:12)
[2022-01-26] MEDS: Piperacillin/Tazobactam 3.375 GM in Sodium Chloride 0.9% 100 ML IVPB SCH ×2 (00:54→15:49)
[2022-01-26] MEDS ORDERED: Ondansetron PF 4 MG/2 ML Vial IVP PRN (04:26)
[2022-01-26] MEDS ORDERED: Ondansetron ODT 4 MG TAB PO PRN (04:26)
[2022-01-26] MEDS: Midodrine HCl 5 MG TAB PO SCH ×3 (04:51→21:12)
[2022-01-26] MEDS ORDERED: Heparin 10,000 UNITS/ 10 ML VIAL ONE (08:39)
[2022-01-26] MEDS: Sevelamer Carbonate 800 MG TAB PO SCH ×3 (08:52→18:41)
[2022-01-26] MEDS: Calcitriol 0.25 MCG CAP PO SCH (08:55)
[2022-01-26] MEDS: Ezetimibe 10 MG TAB PO SCH (08:56)
[2022-01-26] MEDS: Famotidine 20 MG TAB PO SCH (08:56)
[2022-01-26] MEDS: Aspirin Chewable 81 MG TAB PO SCH (08:56)
[2022-01-26] MEDS: Apixaban 5 MG TAB PO SCH ×2 (08:56→21:11)
[2022-01-26] MEDS: Amiodarone 200 MG TAB PO SCH (08:56)
[2022-01-26 09:28] LABS: Anion Gap 22 mmol/L (10-20); Anisocytosis SLIGHT = 6-15 cells (100X) (0-5/hpf); BUN (Urea Nitrogen) 43 mg/dL (8.4-25.7); Calc. Creatinine Clearance 13 mL/min (70-130); Calcium 10.2 mg/dL (7.8-10.44); Carbon Dioxide 22 mmol/L (23-31); Chloride 95 mmol/L (98-107); Estimated GFR 8; Glucose 115 mg/dL (80-115); Hemoglobin 7.7 g/dL (14.0-18.0); Hypochromia SLIGHT = 6-15 cells (100X) (0-5/hpf); Lymphocytes 6 % (21-51); MDiff Complete? YES; Magnesium 2.4 mg/dL (1.6-2.6); Mean Corpuscular HGB CONC 30.8 g/dL (32.0-36.0); Mean Corpuscular Hemoglobin 29.3 pg (27.0-31.0); Mean Corpuscular Volume 95.1 fL (78.0-98.0); Mean Platelet Volume 8.5 fL (7.4-10.4); Monocytes 6 % (0-10); Myelocyte 1 % (0-0); Neutrophil 82 % (42-75); Platelet Count 365 thou/uL (130-400); Platelet Morphology Comment Appears Adequate; Polychromasia SLIGHT = 2-3 cells (100X) (0-2/hpf); Potassium 5.1 mmol/L (3.5-5.1); Reactive Lymphocytes 4 % (0-10); Red Blood Cell (RBC) Count 2.63 mill/uL (4.70-6.10); Sodium 134 mmol/L (136-145); Target Cells SLIGHT = 2-5 cells (100X) (0-1/hpf); White Blood Cell (WBC) Count 17.6 thou/uL (4.8-10.8)
[2022-01-26 16:36] LABS: Actual Bicarbonate (HCO3a) 30.9 mEq/L (22-28); CO2 Tension 33.7 mmHg (35.0-45.0); Potassium - ABG Lab 3.89 mmol/L (3.70-5.30)
[2022-01-26 16:41] LABS: pH, Arterial 7.58 (7.35-7.45)
[2022-01-26 16:42] LABS: O2 Tension (PaO2), arterial 56.9 mmHg (> 80.0); Puncture Site RRA
[2022-01-26] MEDS ORDERED: Sodium Chloride 0.9% 500 ML IV SCH (17:00)
[2022-01-26 17:19] LABS: Hemoglobin 8.4 g/dL (14.0-18.0); Mean Corpuscular HGB CONC 30.5 g/dL (32.0-36.0); Mean Corpuscular Hemoglobin 28.9 pg (27.0-31.0); Mean Corpuscular Volume 94.9 fL (78.0-98.0); Mean Platelet Volume 8.1 fL (7.4-10.4); Platelet Count 313 thou/uL (130-400); RBC Distribution Width 17.9 % (11.5-14.5); Red Blood Cell (RBC) Count 2.91 mill/uL (4.70-6.10); White Blood Cell (WBC) Count 19.7 thou/uL (4.8-10.8)
[2022-01-26] MEDS ORDERED: Vancomycin Sliding Scale IVPB PRN (17:53)
[2022-01-26] MEDS ORDERED: Vancomycin 1 GM in Premix Bag 1 BAG IVPB SCH (18:00)
[2022-01-26 18:03] LABS: Anion Gap 18 mmol/L (10-20); BUN (Urea Nitrogen) 24 mg/dL (8.4-25.7); Calc. Creatinine Clearance 20 mL/min (70-130); Calcium 9.6 mg/dL (7.8-10.44); Carbon Dioxide 25 mmol/L (23-31); Chloride 97 mmol/L (98-107); Estimated GFR 14; Glucose 98 mg/dL (80-115); Magnesium 2.1 mg/dL (1.6-2.6); Potassium 4.1 mmol/L (3.5-5.1); Sodium 136 mmol/L (136-145)
[2022-01-26 20:20] LABS: Lactic Acid 1.5 mmol/L (0.5-2.2)
[2022-01-26] MEDS: Atorvastatin Calcium 40 MG TAB PO SCH (21:11)
[2022-01-26] MEDS ORDERED: Albumin 25% 25 GM/100 ML BOT IVPB SCH (22:45)
[2022-01-26] MEDS: DOPamine 400 MG/D5W 250 ML 250 ML IVPB SCH (23:56)
[2022-01-27] MEDS: Piperacillin/Tazobactam 3.375 GM in Sodium Chloride 0.9% 100 ML IVPB SCH ×2 (01:06→13:00)
[2022-01-27 04:37] LABS: Actual Bicarbonate (HCO3v) 30 mEq/L (22-28); Base Excess 6.8 mEq/L (-2.0 to +3.0); Calcium, Ionized (venous) 1.22 mmol/L (1.16-1.32); Chloride (VBG) 98 mmol/L (98-106); Potassium (VBG) 4.21 mmol/L (3.70-5.30); Sodium 134.3 mmol/L (133-146); pH (venous) 7.52 (7.32-7.43)
[2022-01-27 04:55] LABS: Anion Gap 19 mmol/L (10-20); BUN (Urea Nitrogen) 31 mg/dL (8.4-25.7); Calc. Creatinine Clearance 16 mL/min (70-130); Calcium 9.9 mg/dL (7.8-10.44); Carbon Dioxide 24 mmol/L (23-31); Chloride 98 mmol/L (98-107); Estimated GFR 11; Glucose 127 mg/dL (80-115); Magnesium 2.2 mg/dL (1.6-2.6); Potassium 4.3 mmol/L (3.5-5.1); Sodium 137 mmol/L (136-145)
[2022-01-27 05:02] LABS: Anisocytosis SLIGHT = 6-15 cells (100X) (0-5/hpf); Band 1 % (5-11); Hemoglobin 7.6 g/dL (14.0-18.0); Hypochromia SLIGHT = 6-15 cells (100X) (0-5/hpf); Lymphocytes 11 % (21-51); MDiff Complete? YES; Mean Corpuscular HGB CONC 31.3 g/dL (32.0-36.0); Mean Corpuscular Hemoglobin 29.7 pg (27.0-31.0); Mean Corpuscular Volume 94.9 fL (78.0-98.0); Mean Platelet Volume 8.3 fL (7.4-10.4); Monocytes 2 % (0-10); Neutrophil 86 % (42-75); Platelet Count 298 thou/uL (130-400); Platelet Morphology Comment Appears Adequate; Polychromasia SLIGHT = 2-3 cells (100X) (0-2/hpf); Red Blood Cell (RBC) Count 2.55 mill/uL (4.70-6.10); White Blood Cell (WBC) Count 18.7 thou/uL (4.8-10.8)
[2022-01-27] MEDS: Midodrine HCl 5 MG TAB PO SCH ×3 (06:31→21:01)
[2022-01-27] MEDS: Amiodarone 200 MG TAB PO SCH (09:37)
[2022-01-27] MEDS: Ezetimibe 10 MG TAB PO SCH (09:37)
[2022-01-27] MEDS: Apixaban 5 MG TAB PO SCH ×2 (09:37→21:00)
[2022-01-27] MEDS: Aspirin Chewable 81 MG TAB PO SCH (09:37)
[2022-01-27] MEDS: Famotidine 20 MG TAB PO SCH (09:37)
[2022-01-27] MEDS: Sevelamer Carbonate 800 MG TAB PO SCH ×3 (09:37→17:21)
[2022-01-27] MEDS: Calcitriol 0.25 MCG CAP PO SCH (09:37)
[2022-01-27] MEDS: Senokot S 8.6-50 MG TAB PO PRN (21:00)
[2022-01-27] MEDS: Atorvastatin Calcium 40 MG TAB PO SCH (21:00)
[2022-01-28 05:16] LABS: Band 4 % (5-11); Eosinophils 1 % (0-10); Hemoglobin 8.8 g/dL (14.0-18.0); Hypochromia SLIGHT = 6-15 cells (100X) (0-5/hpf); Lymphocytes 15 % (21-51); MDiff Complete? YES; Mean Corpuscular HGB CONC 30.7 g/dL (32.0-36.0); Mean Corpuscular Hemoglobin 29.5 pg (27.0-31.0); Mean Corpuscular Volume 95.9 fL (78.0-98.0); Mean Platelet Volume 8.1 fL (7.4-10.4); Monocytes 9 % (0-10); Neutrophil 71 % (42-75); Platelet Count 364 thou/uL (130-400); Platelet Morphology Comment Appears Adequate; RBC Distribution Width 18.1 % (11.5-14.5); White Blood Cell (WBC) Count 18.5 thou/uL (4.8-10.8)
[2022-01-28 05:17] LABS: Anion Gap 23 mmol/L (10-20); BUN (Urea Nitrogen) 45 mg/dL (8.4-25.7); Calc. Creatinine Clearance 14 mL/min (70-130); Calcium 10.7 mg/dL (7.8-10.44); Carbon Dioxide 21 mmol/L (23-31); Chloride 95 mmol/L (98-107); Estimated GFR 9; Glucose 100 mg/dL (80-115); Potassium 5.3 mmol/L (3.5-5.1); Sodium 134 mmol/L (136-145)
[2022-01-28] MEDS: Midodrine HCl 5 MG TAB PO SCH ×3 (06:09→21:02)
[2022-01-28] MEDS: Bisacodyl 5 MG TAB PO PRN (06:09)
[2022-01-28] MEDS: Acetaminophen 325 MG TAB PO PRN (06:10)
[2022-01-28] MEDS: Morphine 4 MG/ML VIAL SLOW IVP PRN ×2 (07:31→14:09)
[2022-01-28] MEDS: DOPamine 400 MG/D5W 250 ML 250 ML IVPB SCH (07:32)
[2022-01-28] MEDS ORDERED: Heparin 10,000 UNITS/ 10 ML VIAL ONE (08:42)
[2022-01-28] MEDS: Famotidine 20 MG TAB PO SCH (09:15)
[2022-01-28] MEDS: Sevelamer Carbonate 800 MG TAB PO SCH ×4 (09:15→18:19)
[2022-01-28] MEDS: Amiodarone 200 MG TAB PO SCH (09:15)
[2022-01-28] MEDS: Ezetimibe 10 MG TAB PO SCH (09:15)
[2022-01-28] MEDS: Aspirin Chewable 81 MG TAB PO SCH (09:15)
[2022-01-28] MEDS: Calcitriol 0.25 MCG CAP PO SCH (09:15)
[2022-01-28] MEDS: Apixaban 5 MG TAB PO SCH ×2 (09:16→21:03)
[2022-01-28] MEDS ORDERED: Sodium Chloride 0.9% 500 ML IV SCH (17:45)
[2022-01-28] MEDS ORDERED: NOREPINEPHRINE 8 MG/250 ML-D5W 250 ML IVPB SCH (19:30)
[2022-01-28] MEDS: Atorvastatin Calcium 40 MG TAB PO SCH (21:03)
[2022-01-29] MEDS: Midodrine HCl 5 MG TAB PO SCH ×3 (06:08→20:48)
[2022-01-29] MEDS: Dextrose 50% Abboject 50 ML SYRINGE IVP PRN (06:27)
[2022-01-29 08:06] LABS: Vancomycin, Random 15.3 ug/mL (See Comment)
[2022-01-29] MEDS ORDERED: Heparin 10,000 UNITS/ 10 ML VIAL ONE (08:33)
[2022-01-29] MEDS: Calcitriol 0.25 MCG CAP PO SCH (08:40)
[2022-01-29] MEDS: Famotidine 20 MG TAB PO SCH (08:41)
[2022-01-29] MEDS: Sevelamer Carbonate 800 MG TAB PO SCH ×3 (08:41→17:25)
[2022-01-29] MEDS: Aspirin Chewable 81 MG TAB PO SCH (08:41)
[2022-01-29] MEDS: Apixaban 5 MG TAB PO SCH ×2 (08:41→20:48)
[2022-01-29] MEDS: Amiodarone 200 MG TAB PO SCH (08:41)
[2022-01-29] MEDS: Ezetimibe 10 MG TAB PO SCH (08:41)
[2022-01-29] MEDS: HYDROcodone/Acetaminophen 5/325 mg Tablet PO PRN ×3 (10:30→20:48)
[2022-01-29] MEDS ORDERED: Vancomycin HCl 750 MG in Sodium Chloride 0.9% 250 ML 250 ML IVPB SCH (17:00)
[2022-01-29] MEDS: Atorvastatin Calcium 40 MG TAB PO SCH (20:48)
[2022-01-30] MEDS: Senokot S 8.6-50 MG TAB PO PRN (04:21)
[2022-01-30] MEDS: Midodrine HCl 5 MG TAB PO SCH ×3 (04:23→21:29)
[2022-01-30] MEDS: HYDROcodone/Acetaminophen 5/325 mg Tablet PO PRN ×2 (04:29→11:15)
[2022-01-30 05:00] LABS: Anion Gap 21 mmol/L (10-20); BUN (Urea Nitrogen) 29 mg/dL (8.4-25.7); Calc. Creatinine Clearance 21 mL/min (70-130); Calcium 9.9 mg/dL (7.8-10.44); Carbon Dioxide 19 mmol/L (23-31); Chloride 98 mmol/L (98-107); Estimated GFR 15; Glucose 76 mg/dL (80-115); Potassium 4.5 mmol/L (3.5-5.1); Sodium 133 mmol/L (136-145)
[2022-01-30 05:11] LABS: Hemoglobin 8.4 g/dL (14.0-18.0); Mean Corpuscular HGB CONC 28.7 g/dL (32.0-36.0); Mean Corpuscular Hemoglobin 28.7 pg (27.0-31.0); Mean Corpuscular Volume 99.9 fL (78.0-98.0); Platelet Count 350 thou/uL (130-400); RBC Distribution Width 17.9 % (11.5-14.5); Red Blood Cell (RBC) Count 2.94 mill/uL (4.70-6.10); White Blood Cell (WBC) Count 12.5 thou/uL (4.8-10.8)
[2022-01-30 05:12] LABS: Hypochromia SLIGHT = 6-15 cells (100X) (0-5/hpf); Lymphocytes 9 % (21-51); MDiff Complete? YES; Monocytes 10 % (0-10); Neutrophil 81 % (42-75); Platelet Morphology Comment Appears Adequate
[2022-01-30] MEDS: Famotidine 20 MG TAB PO SCH (08:47)
[2022-01-30] MEDS: Aspirin Chewable 81 MG TAB PO SCH (08:47)
[2022-01-30] MEDS: Calcitriol 0.25 MCG CAP PO SCH (08:47)
[2022-01-30] MEDS: Sevelamer Carbonate 800 MG TAB PO SCH ×3 (08:47→18:21)
[2022-01-30] MEDS: Amiodarone 200 MG TAB PO SCH (08:48)
[2022-01-30] MEDS: Apixaban 5 MG TAB PO SCH ×2 (08:48→21:29)
[2022-01-30] MEDS: Ezetimibe 10 MG TAB PO SCH (08:48)
[2022-01-30] MEDS: Atorvastatin Calcium 40 MG TAB PO SCH (21:30)
[2022-01-30] MEDS: Bisacodyl 5 MG TAB PO PRN (21:38)
[2022-01-31] MEDS: Midodrine HCl 5 MG TAB PO SCH ×3 (05:33→21:39)
[2022-01-31] MEDS ORDERED: Heparin 10,000 UNITS/ 10 ML VIAL ONE (08:49)
[2022-01-31] MEDS: Apixaban 5 MG TAB PO SCH ×2 (09:12→21:40)
[2022-01-31] MEDS: Sevelamer Carbonate 800 MG TAB PO SCH ×3 (09:12→17:22)
[2022-01-31] MEDS: Famotidine 20 MG TAB PO SCH (15:39)
[2022-01-31] MEDS: Ezetimibe 10 MG TAB PO SCH (15:39)
[2022-01-31] MEDS: Aspirin Chewable 81 MG TAB PO SCH (15:39)
[2022-01-31] MEDS: Amiodarone 200 MG TAB PO SCH (15:39)
[2022-01-31] MEDS: Calcitriol 0.25 MCG CAP PO SCH (15:39)
[2022-01-31] MEDS: Epoetin (ESRD) 10,000 UNITS/ML VIAL SC SCH (15:41)
[2022-01-31] MEDS: Atorvastatin Calcium 40 MG TAB PO SCH (21:39)
[2022-02-01 04:57] LABS: Anion Gap 16 mmol/L (10-20); BUN (Urea Nitrogen) 28 mg/dL (8.4-25.7); Calc. Creatinine Clearance 20 mL/min (70-130); Calcium 9.6 mg/dL (7.8-10.44); Carbon Dioxide 27 mmol/L (23-31); Chloride 97 mmol/L (98-107); Estimated GFR 15; Glucose 94 mg/dL (80-115); Potassium 3.5 mmol/L (3.5-5.1); Sodium 136 mmol/L (136-145)
[2022-02-01] MEDS: Midodrine HCl 5 MG TAB PO SCH ×3 (05:51→21:17)
[2022-02-01 07:18] LABS: Mean Corpuscular HGB CONC 30.8 g/dL (32.0-36.0); Mean Corpuscular Hemoglobin 29.3 pg (27.0-31.0); Mean Corpuscular Volume 95.3 fL (78.0-98.0); Mean Platelet Volume 7.8 fL (7.4-10.4); Platelet Count 353 thou/uL (130-400); RBC Distribution Width 17.9 % (11.5-14.5); Red Blood Cell (RBC) Count 2.72 mill/uL (4.70-6.10); White Blood Cell (WBC) Count 8.8 thou/uL (4.8-10.8)
[2022-02-01] MEDS: Apixaban 5 MG TAB PO SCH ×2 (08:44→21:16)
[2022-02-01] MEDS: Sevelamer Carbonate 800 MG TAB PO SCH ×3 (08:44→17:30)
[2022-02-01] MEDS: Amiodarone 200 MG TAB PO SCH (08:44)
[2022-02-01] MEDS: Aspirin Chewable 81 MG TAB PO SCH (08:45)
[2022-02-01] MEDS: Famotidine 20 MG TAB PO SCH (08:45)
[2022-02-01] MEDS: Calcitriol 0.25 MCG CAP PO SCH (08:45)
[2022-02-01] MEDS: Ezetimibe 10 MG TAB PO SCH (08:45)
[2022-02-01 09:05] LABS: Band 6 % (5-11); Eosinophils 2 % (0-10); Hypochromia SLIGHT = 6-15 cells (100X) (0-5/hpf); Lymphocytes 11 % (21-51); MDiff Complete? YES; Metamyelocyte 1 % (0-0); Monocytes 8 % (0-10); Neutrophil 60 % (42-75); Nucleated RBC 2 % (0); Platelet Morphology Comment Appears Adequate; Polychromasia MODERATE = 3-4 cells (100X) (0-2/hpf); Reactive Lymphocytes 12 % (0-10)
[2022-02-01] MEDS: Acetaminophen 325 MG TAB PO PRN (21:16)
[2022-02-01] MEDS: Atorvastatin Calcium 40 MG TAB PO SCH (21:17)
[2022-02-02 05:01] LABS: Anion Gap 15 mmol/L (10-20); BUN (Urea Nitrogen) 45 mg/dL (8.4-25.7); Calc. Creatinine Clearance 15 mL/min (70-130); Calcium 9.6 mg/dL (7.8-10.44); Carbon Dioxide 27 mmol/L (23-31); Chloride 95 mmol/L (98-107); Estimated GFR 11; Glucose 80 mg/dL (80-115); Potassium 3.7 mmol/L (3.5-5.1); Sodium 133 mmol/L (136-145)
[2022-02-02 05:52] LABS: Band 1 % (5-11); Eosinophils 2 % (0-10); Hemoglobin 7.9 g/dL (14.0-18.0); Lymphocytes 9 % (21-51); MDiff Complete? YES; Mean Corpuscular HGB CONC 30.8 g/dL (32.0-36.0); Mean Corpuscular Hemoglobin 29.4 pg (27.0-31.0); Mean Corpuscular Volume 95.5 fL (78.0-98.0); Mean Platelet Volume 7.7 fL (7.4-10.4); Monocytes 10 % (0-10); Neutrophil 78 % (42-75); Platelet Count 325 thou/uL (130-400); RBC Distribution Width 17.9 % (11.5-14.5); White Blood Cell (WBC) Count 7.8 thou/uL (4.8-10.8)
[2022-02-02] MEDS: Midodrine HCl 5 MG TAB PO SCH ×3 (06:08→22:30)
[2022-02-02] MEDS: Acetaminophen 325 MG TAB PO PRN (06:11)
[2022-02-02] MEDS ORDERED: Heparin 10,000 UNITS/ 10 ML VIAL ONE (08:54)
[2022-02-02] MEDS: Morphine 4 MG/ML VIAL SLOW IVP PRN (13:56)
[2022-02-02] MEDS: Sevelamer Carbonate 800 MG TAB PO SCH ×2 (15:26→15:40)
[2022-02-02] MEDS: Apixaban 5 MG TAB PO SCH ×2 (15:27→15:39)
[2022-02-02] MEDS: Calcitriol 0.25 MCG CAP PO SCH (15:38)
[2022-02-02] MEDS: Amiodarone 200 MG TAB PO SCH (15:38)
[2022-02-02] MEDS: Aspirin Chewable 81 MG TAB PO SCH (15:38)
[2022-02-02] MEDS: Ezetimibe 10 MG TAB PO SCH (15:39)
[2022-02-02] MEDS: Famotidine 20 MG TAB PO SCH (15:39)
[2022-02-02] MEDS ORDERED: Lactated Ringer's 1,000 ML IV SCH (16:45)
[2022-02-02] MEDS: HYDROcodone/Acetaminophen 5/325 mg Tablet PO PRN (18:09)
[2022-02-02] MEDS: Atorvastatin Calcium 40 MG TAB PO SCH (22:30)
[2022-02-03 04:51] LABS: Anion Gap 18 mmol/L (10-20); BUN (Urea Nitrogen) 29 mg/dL (8.4-25.7); Calc. Creatinine Clearance 22 mL/min (70-130); Calcium 9.4 mg/dL (7.8-10.44); Carbon Dioxide 23 mmol/L (23-31); Chloride 99 mmol/L (98-107); Estimated GFR 16; Glucose 80 mg/dL (80-115); Potassium 4.5 mmol/L (3.5-5.1); Sodium 135 mmol/L (136-145)
[2022-02-03 04:57] LABS: Band 2 % (5-11); Eosinophils 2 % (0-10); Hemoglobin 8.3 g/dL (14.0-18.0); Lymphocytes 12 % (21-51); MDiff Complete? YES; Mean Corpuscular HGB CONC 30.3 g/dL (32.0-36.0); Mean Corpuscular Volume 95.9 fL (78.0-98.0); Mean Platelet Volume 7.6 fL (7.4-10.4); Monocytes 7 % (0-10); Neutrophil 77 % (42-75); Platelet Count 318 thou/uL (130-400); Polychromasia SLIGHT = 2-3 cells (100X) (0-2/hpf); Red Blood Cell (RBC) Count 2.87 mill/uL (4.70-6.10); Target Cells SLIGHT = 2-5 cells (100X) (0-1/hpf); White Blood Cell (WBC) Count 9.3 thou/uL (4.8-10.8)
[2022-02-03] MEDS: Midodrine HCl 5 MG TAB PO SCH ×3 (05:38→22:11)
[2022-02-03] MEDS ORDERED: Dextrose 5% in Water 1,000 ML IV PRN (06:30)
[2022-02-03] MEDS ORDERED: Dextrose 50% Abboject 50 ML SYRINGE IVP PRN (06:30)
[2022-02-03] MEDS: Aspirin Chewable 81 MG TAB PO SCH (10:09)
[2022-02-03] MEDS: Apixaban 5 MG TAB PO SCH ×2 (10:09→22:00)
[2022-02-03] MEDS: Amiodarone 200 MG TAB PO SCH (10:09)
[2022-02-03] MEDS: Sevelamer Carbonate 800 MG TAB PO SCH ×3 (10:09→17:55)
[2022-02-03] MEDS: Calcitriol 0.25 MCG CAP PO SCH (10:09)
[2022-02-03] MEDS: Famotidine 20 MG TAB PO SCH (10:09)
[2022-02-03] MEDS: Ezetimibe 10 MG TAB PO SCH (10:09)
[2022-02-03] MEDS: HYDROcodone/Acetaminophen 5/325 mg Tablet PO PRN (11:18)
[2022-02-03] MEDS: Morphine 4 MG/ML VIAL SLOW IVP PRN (13:23)
[2022-02-03] MEDS: Atorvastatin Calcium 40 MG TAB PO SCH (22:00)
[2022-02-04] MEDS: Dextrose 10% in Water 1,000 ML IV SCH ×2 (01:26→21:30)
[2022-02-04] MEDS ORDERED: Calcium Chloride 1 GM/10 ML Abboject SYRINGE ONE (01:50)
[2022-02-04] MEDS ORDERED: EPINEPHrine 1 MG/ML AMP ONE (01:50)
[2022-02-04] MEDS ORDERED: Sodium Bicarb 50 MEQ/50 ML Abboject 8.4% SYRINGE ONE (01:50)
[2022-02-04 02:52] LABS: Actual Bicarbonate (HCO3a) 18.5 mEq/L (22-28); Base Excess (BEa) -7.7 mEq/L (-2.0 to +3.0); CO2 Tension 40.5 mmHg (35.0-45.0); Calcium, Ionized (arterial) 1.39 mmol/L (1.12-1.30); Carboxyhemoglobin (COHb) 0.6 gm% (0.0-3.0); Hemoglobin (Hb) 8.8 g/dL (14.0-18.0); Potassium - ABG Lab 4.79 mmol/L (3.70-5.30); pH, Arterial 7.28 (7.35-7.45)
[2022-02-04] MEDS: Dextrose 50% Abboject 50 ML SYRINGE IVP PRN (02:53)
[2022-02-04 02:54] LABS: O2 Tension (PaO2), arterial 55.4 mmHg (> 80.0)
[2022-02-04 02:55] LABS: ALV-art Gradient 606.975 mmHg (0-20); Puncture Site RBA
[2022-02-04] MEDS ORDERED: Fentanyl CADD 100 ML ONE (02:58)
[2022-02-04 03:00] LABS: Lactic Acid 11.4 mmol/L (0.5-2.2)
[2022-02-04 03:01] LABS: Troponin I 0.159 ng/mL (< 0.028)
[2022-02-04] MEDS ORDERED: Vecuronium 10 MG VIAL ONE (03:04)
[2022-02-04] MEDS ORDERED: Vecuronium 10 MG VIAL IVP PRN (03:07)
[2022-02-04] MEDS ORDERED: Sterile Water 10 ML VIAL FS PRN (03:08)
[2022-02-04 03:10] LABS: ALT (SGPT) 19 U/L (8-55); AST (SGOT) 86 U/L (5-34); Albumin 2.4 g/dL (3.4-4.8); Alkaline Phosphatase 117 U/L (40-110); Anion Gap 27 mmol/L (10-20); BUN (Urea Nitrogen) 45 mg/dL (8.4-25.7); Bilirubin, Total 0.6 mg/dL (0.2-1.2); Calc. Creatinine Clearance 15 mL/min (70-130); Calcium 14.1 mg/dL (7.8-10.44); Carbon Dioxide 18 mmol/L (23-31); Chloride 99 mmol/L (98-107); Estimated GFR 11; Globulin 4.3 g/dL (2.4-3.5); Glucose 217 mg/dL (80-115); Magnesium 2.4 mg/dL (1.6-2.6); Potassium 4.8 mmol/L (3.5-5.1); Protein, Total 6.7 g/dL (5.8-8.1); Sodium 139 mmol/L (136-145)
[2022-02-04 03:11] LABS: Band 2 % (5-11); Hemoglobin 9.4 g/dL (14.0-18.0); Lymphocytes 42 % (21-51); MDiff Complete? YES; Mean Corpuscular HGB CONC 30.4 g/dL (32.0-36.0); Mean Corpuscular Hemoglobin 29.5 pg (27.0-31.0); Mean Corpuscular Volume 97.3 fL (78.0-98.0); Mean Platelet Volume 8.2 fL (7.4-10.4); Metamyelocyte 2 % (0-0); Monocytes 4 % (0-10); Neutrophil 50 % (42-75); Nucleated RBC 1 % (0); Platelet Count 340 thou/uL (130-400); RBC Distribution Width 18.1 % (11.5-14.5); White Blood Cell (WBC) Count 31.3 thou/uL (4.8-10.8)
[2022-02-04] MEDS: Fentanyl CADD 100 ML IV SCH ×2 (03:14→20:25)
[2022-02-04] MEDS ORDERED: Morphine 4 MG/ML VIAL SLOW IVP PRN (03:15)
[2022-02-04] MEDS ORDERED: Propofol BOLUS 1,000 MG/100 ML VIAL IV PRN (03:15)
[2022-02-04] MEDS ORDERED: DISCONTINUE PREVIOUS NARCOTIC PAIN MEDICATIONS AND BENZODIAZEPINES FS SCH (03:15)
[2022-02-04] MEDS: NOREPINEPHRINE 8 MG/250 ML-D5W 250 ML IVPB SCH ×2 (03:15→23:11)
[2022-02-04] MEDS ORDERED: Vecuronium 10 MG VIAL IVP SCH (03:15)
[2022-02-04] MEDS ORDERED: Fentanyl BOLUS 250 ML IVPB PRN (03:15)
[2022-02-04] MEDS: Midodrine HCl 5 MG TAB PO SCH ×3 (06:20→21:24)
[2022-02-04] MEDS ORDERED: Ondansetron PF 4 MG/2 ML Vial IVP PRN (07:00)
[2022-02-04] MEDS: Midazolam HCl 2 mg/2 ml Vial SLOW IVP PRN (07:05)
[2022-02-04 07:29] LABS: Lactic Acid 3.4 mmol/L (0.5-2.2)
[2022-02-04] MEDS: Propofol 1,000 MG/100 ML VIAL IV PRN (07:48)
[2022-02-04 09:28] LABS: Anion Gap 19 mmol/L (10-20); BUN (Urea Nitrogen) 50 mg/dL (8.4-25.7); Calc. Creatinine Clearance 14 mL/min (70-130); Calcium 10.3 mg/dL (7.8-10.44); Carbon Dioxide 24 mmol/L (23-31); Chloride 97 mmol/L (98-107); Estimated GFR 10; Glucose 139 mg/dL (80-115); Potassium 4.4 mmol/L (3.5-5.1); Sodium 136 mmol/L (136-145)
[2022-02-04] MEDS: Calcitriol 0.25 MCG CAP PO SCH (09:43)
[2022-02-04] MEDS: Amiodarone 200 MG TAB PO SCH (09:43)
[2022-02-04] MEDS: Aspirin Chewable 81 MG TAB PO SCH (09:43)
[2022-02-04] MEDS: Sevelamer Carbonate 800 MG TAB PO SCH ×3 (09:43→17:23)
[2022-02-04] MEDS: Apixaban 5 MG TAB PO SCH ×2 (09:43→21:24)
[2022-02-04] MEDS: Famotidine 20 MG TAB PO SCH (09:44)
[2022-02-04] MEDS: Ezetimibe 10 MG TAB PO SCH (09:44)
[2022-02-04] MEDS: Atorvastatin Calcium 40 MG TAB PO SCH (21:24)
[2022-02-05] MEDS: Midazolam HCl 2 mg/2 ml Vial SLOW IVP PRN (03:22)
[2022-02-05 04:26] LABS: #Eosinphils 0.4 thou/uL (0.0-0.7); #Lymphocytes 1.8 thou/uL (1.20-3.40); #Monocytes 0.8 thou/uL (0.11-0.59); #Neutrophils 7.1 thou/uL (1.40-6.50); %Basophils 0.3 % (0.0-1.0); %Monocytes 7.9 % (0.0-10.0); %Neutrophils 69.8 % (42.0-75.0); Hemoglobin 7.8 g/dL (14.0-18.0); Mean Corpuscular HGB CONC 30.9 g/dL (32.0-36.0); Mean Corpuscular Hemoglobin 28.7 pg (27.0-31.0); Mean Corpuscular Volume 92.9 fL (78.0-98.0); Mean Platelet Volume 8.1 fL (7.4-10.4); Platelet Count 291 thou/uL (130-400); RBC Distribution Width 17.5 % (11.5-14.5); Red Blood Cell (RBC) Count 2.71 mill/uL (4.70-6.10); White Blood Cell (WBC) Count 10.1 thou/uL (4.8-10.8)
[2022-02-05 04:44] LABS: Anion Gap 18 mmol/L (10-20); BUN (Urea Nitrogen) 56 mg/dL (8.4-25.7); Calc. Creatinine Clearance 13 mL/min (70-130); Calcium 10.1 mg/dL (7.8-10.44); Carbon Dioxide 24 mmol/L (23-31); Chloride 95 mmol/L (98-107); Estimated GFR 9; Glucose 94 mg/dL (80-115); Potassium 4.4 mmol/L (3.5-5.1); Sodium 133 mmol/L (136-145)
[2022-02-05] MEDS: Midodrine HCl 5 MG TAB PO SCH ×3 (06:30→21:39)
[2022-02-05 07:52] LABS: Actual Bicarbonate (HCO3a) 25.3 mEq/L (22-28); Base Excess (BEa) 4.7 mEq/L (-2.0 to +3.0); Carboxyhemoglobin (COHb) 1.1 gm% (0.0-3.0); Hemoglobin (Hb) 8.3 g/dL (14.0-18.0); O2 Tension (PaO2), arterial 69.3 mmHg (> 80.0); Potassium - ABG Lab 4.47 mmol/L (3.70-5.30)
[2022-02-05 07:57] LABS: CO2 Tension 23.6 mmHg (35.0-45.0); Puncture Site RRA; pH, Arterial 7.65 (7.35-7.45)
[2022-02-05] MEDS ORDERED: Heparin 10,000 UNITS/ 10 ML VIAL ONE (08:18)
[2022-02-05] MEDS: Sevelamer Carbonate 800 MG TAB PO SCH ×3 (08:54→19:32)
[2022-02-05] MEDS: Amiodarone 200 MG TAB PO SCH (11:14)
[2022-02-05] MEDS: Calcitriol 0.25 MCG CAP PO SCH (11:14)
[2022-02-05] MEDS: Aspirin Chewable 81 MG TAB PO SCH (11:14)
[2022-02-05] MEDS: Famotidine 20 MG TAB PO SCH (11:15)
[2022-02-05] MEDS: Ezetimibe 10 MG TAB PO SCH (11:15)
[2022-02-05] MEDS: Apixaban 5 MG TAB PO SCH ×2 (11:22→21:39)
[2022-02-05] MEDS: Propofol 1,000 MG/100 ML VIAL IV PRN (11:22)
[2022-02-05] MEDS: Fentanyl CADD 100 ML IV SCH (14:37)
[2022-02-05] MEDS: NOREPINEPHRINE 8 MG/250 ML-D5W 250 ML IVPB SCH ×2 (15:46→21:41)
[2022-02-05] MEDS: Atorvastatin Calcium 40 MG TAB PO SCH (21:39)
[2022-02-06] MEDS: Midodrine HCl 5 MG TAB PO SCH (06:28)
[2022-02-06] MEDS: NOREPINEPHRINE 8 MG/250 ML-D5W 250 ML IVPB SCH (06:56)
[2022-02-06] MEDS ORDERED: Dextrose 5% in Water 1,000 ML IV PRN (08:19)
[2022-02-06] MEDS ORDERED: HumaLOG 300 UNITS/3 ML VIAL SC PRN ×2 (08:19)
[2022-02-06 08:34] LABS: Hemoglobin 7.9 g/dL (14.0-18.0); Mean Corpuscular HGB CONC 30.2 g/dL (32.0-36.0); Mean Corpuscular Hemoglobin 28.2 pg (27.0-31.0); Mean Corpuscular Volume 93.5 fL (78.0-98.0); Mean Platelet Volume 7.5 fL (7.4-10.4); Platelet Count 289 thou/uL (130-400); RBC Distribution Width 17.2 % (11.5-14.5); Red Blood Cell (RBC) Count 2.79 mill/uL (4.70-6.10); White Blood Cell (WBC) Count 9.8 thou/uL (4.8-10.8)
[2022-02-06 08:49] LABS: Anion Gap 17 mmol/L (10-20); BUN (Urea Nitrogen) 35 mg/dL (8.4-25.7); Calc. Creatinine Clearance 17 mL/min (70-130); Calcium 9.9 mg/dL (7.8-10.44); Carbon Dioxide 25 mmol/L (23-31); Chloride 95 mmol/L (98-107); Estimated GFR 13; Glucose 101 mg/dL (80-115); Potassium 4.6 mmol/L (3.5-5.1); Sodium 132 mmol/L (136-145)
[2022-02-06] MEDS: Fentanyl CADD 100 ML IV SCH (09:10)
[2022-02-06 09:20] LABS: Eosinophils 9 % (0-10); Hypochromia SLIGHT = 6-15 cells (100X) (0-5/hpf); Lymphocytes 14 % (21-51); MDiff Complete? YES; Monocytes 10 % (0-10); Neutrophil 66 % (42-75); Ovalocytes SLIGHT = 2-5 cells (100X) (0-1/hpf); Platelet Morphology Comment Appears Adequate; Polychromasia SLIGHT = 2-3 cells (100X) (0-2/hpf)
[2022-02-06] MEDS: Sevelamer Carbonate 800 MG TAB PO SCH ×3 (11:18→19:23)
[2022-02-06] MEDS: Aspirin Chewable 81 MG TAB PO SCH (11:24)
[2022-02-06] MEDS: Amiodarone 200 MG TAB PO SCH (11:24)
[2022-02-06] MEDS: Ezetimibe 10 MG TAB PO SCH (11:24)
[2022-02-06] MEDS: Calcitriol 0.25 MCG CAP PO SCH (11:24)
[2022-02-06] MEDS: Famotidine 20 MG TAB PO SCH (11:24)
[2022-02-06] MEDS: Apixaban 5 MG TAB PO SCH ×2 (11:30→21:19)
[2022-02-06] MEDS: Atorvastatin Calcium 40 MG TAB PO SCH (21:19)
[2022-02-07 05:36] LABS: Anion Gap 20 mmol/L (10-20); BUN (Urea Nitrogen) 44 mg/dL (8.4-25.7); Calc. Creatinine Clearance 14 mL/min (70-130); Calcium 10.2 mg/dL (7.8-10.44); Carbon Dioxide 25 mmol/L (23-31); Chloride 92 mmol/L (98-107); Estimated GFR 10; Glucose 86 mg/dL (80-115); Potassium 4.7 mmol/L (3.5-5.1); Sodium 132 mmol/L (136-145)
[2022-02-07 05:48] LABS: Anisocytosis SLIGHT = 6-15 cells (100X) (0-5/hpf); Eosinophils 3 % (0-10); Hypochromia SLIGHT = 6-15 cells (100X) (0-5/hpf); Lymphocytes 15 % (21-51); MDiff Complete? YES; Mean Corpuscular HGB CONC 30.9 g/dL (32.0-36.0); Mean Corpuscular Hemoglobin 28.8 pg (27.0-31.0); Mean Corpuscular Volume 93.4 fL (78.0-98.0); Mean Platelet Volume 7.7 fL (7.4-10.4); Monocytes 12 % (0-10); Neutrophil 68 % (42-75); Nucleated RBC 1 % (0); Platelet Count 302 thou/uL (130-400); Platelet Morphology Comment Appears Adequate; Polychromasia SLIGHT = 2-3 cells (100X) (0-2/hpf); RBC Distribution Width 17.2 % (11.5-14.5); Red Blood Cell (RBC) Count 2.76 mill/uL (4.70-6.10); White Blood Cell (WBC) Count 11.6 thou/uL (4.8-10.8)
[2022-02-07] MEDS: NOREPINEPHRINE 8 MG/250 ML-D5W 250 ML IVPB SCH (07:16)
[2022-02-07] MEDS: Sevelamer Carbonate 800 MG TAB PO SCH ×3 (07:32→17:16)
[2022-02-07 07:59] LABS: Phosphorus 3.7 mg/dL (2.3-4.7)
[2022-02-07] MEDS: Aspirin Chewable 81 MG TAB PO SCH (08:34)
[2022-02-07] MEDS: Ezetimibe 10 MG TAB PO SCH (08:34)
[2022-02-07] MEDS: Calcitriol 0.25 MCG CAP PO SCH (08:34)
[2022-02-07] MEDS: Famotidine 20 MG TAB PO SCH (08:34)
[2022-02-07] MEDS: Amiodarone 200 MG TAB PO SCH (08:35)
[2022-02-07] MEDS: Apixaban 5 MG TAB PO SCH ×2 (08:35→21:05)
[2022-02-07] MEDS ORDERED: Heparin 10,000 UNITS/ 10 ML VIAL ONE (08:43)
[2022-02-07] MEDS ORDERED: Fentanyl CADD 100 ML ONE (09:02)
[2022-02-07] MEDS: Fentanyl CADD 100 ML IV SCH (09:04)
[2022-02-07] MEDS ORDERED: Lidocaine 1% (PF) 30 ML VIAL ONE (10:00)
[2022-02-07] MEDS ORDERED: Lidocaine 1% (PF) 30 ML VIAL IJ SCH (10:00)
[2022-02-07 10:33] VITALS: BMI 27.4
[2022-02-07] MEDS: Midazolam HCl 2 mg/2 ml Vial SLOW IVP PRN (10:38)
[2022-02-07] MEDS: Epoetin (ESRD) 10,000 UNITS/ML VIAL SC SCH (12:46)
[2022-02-07] MEDS ORDERED: DC Sedation Protocol FS ONE (14:25)
[2022-02-07] MEDS: Atorvastatin Calcium 40 MG TAB PO SCH (21:05)
[2022-02-07] MEDS: Morphine 2 MG/ML VIAL SLOW IVP PRN (21:16)
[2022-02-08] MEDS ORDERED: Fentanyl 100 MCG/2 ML VIAL SLOW IVP PRN (00:21)
[2022-02-08] MEDS: Morphine 2 MG/ML VIAL SLOW IVP PRN ×2 (01:25→07:27)
[2022-02-08 04:30] LABS: #Eosinphils 0.3 thou/uL (0.0-0.7); #Lymphocytes 1.3 thou/uL (1.20-3.40); #Neutrophils 6.7 thou/uL (1.40-6.50); %Basophils 0.1 % (0.0-1.0); %Eosinophils 3.3 % (0.0-10.0); %Lymphocytes 13.5 % (21.0-51.0); %Monocytes 10.3 % (0.0-10.0); %Neutrophils 72.7 % (42.0-75.0); Hemoglobin 7.8 g/dL (14.0-18.0); Mean Corpuscular HGB CONC 30.8 g/dL (32.0-36.0); Mean Corpuscular Hemoglobin 28.7 pg (27.0-31.0); Mean Corpuscular Volume 93.2 fL (78.0-98.0); Mean Platelet Volume 7.6 fL (7.4-10.4); Platelet Count 294 thou/uL (130-400); RBC Distribution Width 17.2 % (11.5-14.5); Red Blood Cell (RBC) Count 2.71 mill/uL (4.70-6.10); White Blood Cell (WBC) Count 9.3 thou/uL (4.8-10.8)
[2022-02-08 04:52] LABS: Anion Gap 19 mmol/L (10-20); BUN (Urea Nitrogen) 28 mg/dL (8.4-25.7); Calc. Creatinine Clearance 19 mL/min (70-130); Calcium 9.7 mg/dL (7.8-10.44); Carbon Dioxide 23 mmol/L (23-31); Chloride 95 mmol/L (98-107); Estimated GFR 14; Glucose 76 mg/dL (80-115); Potassium 4.2 mmol/L (3.5-5.1); Sodium 133 mmol/L (136-145)
[2022-02-08] MEDS ORDERED: Midazolam HCl 2 mg/2 ml Vial ONE (07:40)
[2022-02-08] MEDS ORDERED: Lorazepam (BATCHED) 2 MG/ML SYR SLOW IVP SCH ×2 (07:45→10:15)
[2022-02-08] MEDS ORDERED: Midazolam HCl 2 mg/2 ml Vial SLOW IVP SCH ×2 (07:45→10:45)
[2022-02-08] MEDS ORDERED: Lorazepam (BATCHED) 2 MG/ML SYR SLOW IVP PRN (10:11)
[2022-02-08] MEDS ORDERED: Hyoscyamine Sulfate SL 0.125 mg Tablet SL PRN (10:11)
[2022-02-08] MEDS ORDERED: Morphine 4 MG/ML VIAL SLOW IVP SCH (10:15)
[2022-02-08] MEDS: Famotidine 20 MG TAB PO SCH (10:36)
[2022-02-08] MEDS: Aspirin Chewable 81 MG TAB PO SCH (10:36)
[2022-02-08] MEDS: Apixaban 5 MG TAB PO SCH (10:36)
[2022-02-08] MEDS: Calcitriol 0.25 MCG CAP PO SCH (10:36)
[2022-02-08] MEDS: Amiodarone 200 MG TAB PO SCH (10:36)
[2022-02-08] MEDS: Ezetimibe 10 MG TAB PO SCH (10:36)
[2022-02-08] MEDS: Sevelamer Carbonate 800 MG TAB PO SCH ×2 (10:36→12:26)
[2022-02-08] MEDS: Morphine 4 MG/ML VIAL SLOW IVP PRN ×5 (12:24→21:06)
[2022-02-08] MEDS: Midazolam HCl 2 mg/2 ml Vial SLOW IVP PRN ×2 (13:18→17:29)
[2022-02-08 20:20] VITALS: BP 95/54; TEMP 98.3
[2022-02-09] MEDS: Morphine 4 MG/ML VIAL SLOW IVP PRN (00:20)
[2022-02-09] MEDS: Midazolam HCl 2 mg/2 ml Vial SLOW IVP PRN (00:25)
== END 2022-02-09 01:25 | disposition expired | DRG 853 ==
LOC: ERS 06:56 → ERHOLD 09:48 → 2NO 14:27 → CCU 19:08 → SURG B 01-20 14:56 → 2NO 01-26 17:51 → CCU 01-28 19:34 → 2NO 01-29 22:02 → CCU 02-04 02:13 → T4-A 02-08 14:50
PROVIDERS: ADMIT Internal Medicine; ATTEND Internal Medicine
PROC: 5A1D70Z Performance of Urinary Filtration, Intermittent, Less than 6 Hours Per Day (ICD-10-PCS; 2022-01-17)
PROC: 3E0334Z Introduction of Serum, Toxoid and Vaccine into Peripheral Vein, Percutaneous Approach (ICD-10-PCS; 2022-01-17)
PROC: 06HY33Z Insertion of Infusion Device into Lower Vein, Percutaneous Approach (ICD-10-PCS; 2022-01-17)
PROC: 3E043XZ Introduction of Vasopressor into Central Vein, Percutaneous Approach (ICD-10-PCS; 2022-01-17)
PROC: 30233N1 Transfusion of Nonautologous Red Blood Cells into Peripheral Vein, Percutaneous Approach (ICD-10-PCS; 2022-01-18)
PROC: 0KBN0ZZ Excision of Right Hip Muscle, Open Approach (ICD-10-PCS; principal; 2022-01-19)
PROC: 0KBP0ZZ Excision of Left Hip Muscle, Open Approach (ICD-10-PCS; 2022-01-19)
PROC: 0BH17EZ Insertion of Endotracheal Airway into Trachea, Via Natural or Artificial Opening (ICD-10-PCS; 2022-02-05)
PROC: 5A1945Z Respiratory Ventilation, 24-96 Consecutive Hours (ICD-10-PCS; 2022-02-05)
PROC: 0D9670Z Drainage of Stomach with Drainage Device, Via Natural or Artificial Opening (ICD-10-PCS; 2022-02-05)
PROC: 5A12012 Performance of Cardiac Output, Single, Manual (ICD-10-PCS; 2022-02-05)
DX: A41.52 Sepsis due to Pseudomonas (principal); G93.41 Metabolic encephalopathy; I21.A1 Myocardial infarction type 2; L89.154 Pressure ulcer of sacral region, stage 4; N18.6 End stage renal disease; J80 Acute respiratory distress syndrome; R65.21 Severe sepsis with septic shock; I50.23 Acute on chronic systolic (congestive) heart failure; I13.2 Hypertensive heart and chronic kidney disease with heart failure and with stage 5 chronic kidney disease, or end stage renal disease; L03.312 Cellulitis of back [any part except buttock and flank]; L03.115 Cellulitis of right lower limb; E87.70 Fluid overload, unspecified; Z20.822 Contact with and (suspected) exposure to COVID-19; Z66 Do not resuscitate; Z51.5 Encounter for palliative care; I48.0 Paroxysmal atrial fibrillation; I95.3 Hypotension of hemodialysis; D63.1 Anemia in chronic kidney disease; N28.1 Cyst of kidney, acquired; I25.5 Ischemic cardiomyopathy; E78.00 Pure hypercholesterolemia, unspecified; I73.9 Peripheral vascular disease, unspecified; B96.20 Unspecified Escherichia coli [E. coli] as the cause of diseases classified elsewhere; B96.89 Other specified bacterial agents as the cause of diseases classified elsewhere; E83.52 Hypercalcemia; R57.0 Cardiogenic shock; I49.01 Ventricular fibrillation; I46.2 Cardiac arrest due to underlying cardiac condition; Z98.890 Other specified postprocedural states; Z99.2 Dependence on renal dialysis; Z79.82 Long term (current) use of aspirin; Z79.01 Long term (current) use of anticoagulants; Z79.899 Other long term (current) drug therapy; Z89.612 Acquired absence of left leg above knee; Z99.3 Dependence on wheelchair; Z95.5 Presence of coronary angioplasty implant and graft; Z89.611 Acquired absence of right leg above knee; Z95.810 Presence of automatic (implantable) cardiac defibrillator; Z87.891 Personal history of nicotine dependence
CPT/HCPCS: 36415; 36416; 36430; 36600; 70450; 71045; 74177; 80048; 80053; 80076; 80202; 82553; 82805; 82947; 83605; 83735; 84100; 84484; 85014; 85018; 85025; 85049; 85610; 85652; 85730; 86140; 86704; 86850; 86900; 86901; 87040; 87070; 87077; 87081; 87149; 87186; 87205; 87340; 90935; 93005; 93010; 93306; 94002; 94003; 94660; 94760; 96365; 96367; 96375; 97139; G0257; J0171; J1265; J1642; J1644; J1815; J2250; J2270; J2405; J2543; J2704; J3010; J3370; J3490; J7030; J7050; J7120; J7999; P9016; P9047; Q4081; Q9967; U0002; U0003; U0005